=== PATIENT | female | born 1960 | race African-American/Black ===

== ENCOUNTER 2019-02-04 14:34 | Inpatient (IN) | payer MEDICAID, OTHER ==
[~2019-02-04] VITALS: Ht 157.5 cm; Wt 109.0 kg
[2019-02-04 16:09] LABS: INR 0.95 (0.9-1.15); Partial Thromboplastin Time 28.1 sec (23.78-33.04); Prothrombin Time 10.2 sec (9.27-12.13)
[2019-02-04 16:11] LABS: Basophils # (auto) 0.1 uL; Basophils % (auto) 0.9 % (0.0-2.0); Eosinophils # (auto) 0.1 uL; Eosinophils % (auto) 1.9 % (0.0-7.0); Hematocrit 43.8 % (36.0-46.0); Lymphocytes % (auto) 30.5 % (10.0-50.0); Mean Corpuscular Hemoglobin 28.5 pg (28.0-32.0); Monocytes # (auto) 0.6 uL; Monocytes % (auto) 9.4 % (0.0-12.0); Neutrophils # (auto) 3.7 uL; Neutrophils % (auto) 57.3 % (37.0-80.0); Nucleated Red Blood Cells % 0.2 %; Platelet Count (auto) 346 10^3/uL (140-450); Red Blood Cells 4.92 10^6/uL (4.0-5.20); Red Cell Distribution Width 13.6 % (11.8-14.3); White Blood Cell 6.4 10^3/uL (4.4-10.8)
[2019-02-04 16:16] LABS: Albumin 3.3 g/dL (3.4-5.0); Calcium 9.8 mg/dL (8.5-10.1); Potassium 3.4 mmol/L (3.5-5.1)
[2019-02-04 16:19] LABS: Bilirubin, Total 0.2 mg/dL (0.2-1.0); Total Protein 7.3 g/dL (6.4-8.2)
[2019-02-04] MEDS ORDERED: POTASSIUM EFFERVESENT TAB 25 MEQ PO ONE (16:45)
[2019-02-04] MEDS ORDERED: FUROSEMIDE 40 MG/4 ML VIAL IV ONE (16:45)
[2019-02-05] MEDS ORDERED: ALBUTEROL SULF 2.5 MG/0.5ML(0.5%) NEB SOLN NEB ONE (02:00)
[2019-02-05] MEDS ORDERED: IPRATROPIUM BROM 0.5 MG/2.5ML INH SOL NEB ONE (02:00)
[2019-02-05] MEDS ORDERED: DEXTROSE (50%) 50ML SYRG IV PRN (03:30)
[2019-02-05] MEDS ORDERED: LORazepam 0.5 MG TAB PO PRN (03:30)
[2019-02-05] MEDS ORDERED: HYDROcodone-ACET 5/325MG TAB PO PRN (03:30)
[2019-02-05 03:54] LABS: Urine Bacteria FEW /hpf (None Seen); Urine Blood Negative /uL (Negative); Urine Hyaline Cast FEW /lpf (0 - 2); Urine Specific Gravity 1.013 (1.001-1.035); Urine WBC 4 /hpf (0 - 5)
[2019-02-05 04:01] VITALS: BP 131/101
[2019-02-05 04:13] LABS: Basophils # (auto) 0.1 uL; Basophils % (auto) 1.1 % (0.0-2.0); Eosinophils # (auto) 0.2 uL; Hematocrit 39.7 % (36.0-46.0); Hemoglobin 12.8 g/dL (12.2-16.2); Lymphocytes # (auto) 1.3 uL; Lymphocytes % (auto) 23.7 % (10.0-50.0); Mean Corpuscular Hemoglobin 28.3 pg (28.0-32.0); Mean Corpuscular Hgb Conc. 32.3 g/dL (32.0-36.0); Mean Corpuscular Volume 87.5 fL (80.0-100.0); Monocytes # (auto) 0.6 uL; Monocytes % (auto) 11.1 % (0.0-12.0); Neutrophils # (auto) 3.4 uL; Neutrophils % (auto) 61.1 % (37.0-80.0); Nucleated Red Blood Cells % 0.1 %; Platelet Count (auto) 323 10^3/uL (140-450); Red Blood Cells 4.53 10^6/uL (4.0-5.20); Red Cell Distribution Width 13.5 % (11.8-14.3); White Blood Cell 5.6 10^3/uL (4.4-10.8)
[2019-02-05 04:24] LABS: BUN/Creatinine Ratio 20.4; Calcium 9.4 mg/dL (8.5-10.1)
[2019-02-05] MEDS ORDERED: IPRATROPIUM BROM 0.5 MG/2.5ML INH SOL ONE (06:39)
[2019-02-05] MEDS ORDERED: ALBUTEROL SULF 2.5 MG/0.5ML(0.5%) NEB SOLN ONE (06:39)
[2019-02-05] MEDS: ALBUTEROL SULF 2.5 MG/0.5ML(0.5%) NEB SOLN NEB SCH ×5 (06:55→22:30)
[2019-02-05] MEDS: IPRATROPIUM BROM 0.5 MG/2.5ML INH SOL NEB SCH ×5 (06:55→22:30)
[2019-02-05] MEDS: ACCU-CHEK COMFORT CURVE STRIP VI SCH ×4 (07:50→21:32)
[2019-02-05] MEDS: InsuLIN REG 1unit/0.01ml Soln (100units/ml) SC SCH ×4 (07:50→21:32)
[2019-02-05] MEDS: LISINOPRIL 5 MG TAB PO SCH (09:55)
[2019-02-05] MEDS ORDERED: cefTRIAXone 1GM/50ML D5W 50 ML IV ONE (13:30)
--- NOTE | 2019-02-05 16:46 | NUR ---
ER NURSE DID NOT GIVE REPORT, PER PATIENT SHE S/P PARACENTESIS REMOVED 1 L.
--- NOTE | 2019-02-05 16:49 | NUR ---
Telemetry admit from ER CHRISLEXII admitted to Telemetry unit after SBAR received. Patient oriented to MICHAEL REYEZ, primary RN, unit, room, bed, and unit policies regarding patient care and visiting hours. Patient now on continuous telemetry monitoring, tele box # 25 and telemetry reading on arrival to unit is . Patient placed on bedside oxygen, weighed by bed scale and encouraged to call if they need something. All questions and concerns addressed, patient verbalized understanding.
[2019-02-05 16:51] VITALS: BP 108/67
--- NOTE | 2019-02-05 18:48 | NUR ---
MRSA SENT TO THE LAB.
--- NOTE | 2019-02-05 19:40 | NUR ---
Opening Shift Note Assumed care of patient, awake and alert. No S/S of distress/SOB but c/o of headache pain, will medicate per md order. Patient can ambulate to the restroom. Bed locked in lowest position, side rails upx2, call light within reach. Instructed on POC and to call for assist PRN, will continue to monitor for changes Q1hr and PRN.
[2019-02-05] MEDS: ACETAMINOPHEN 500 MG TAB PO PRN (20:01)
[2019-02-05 22:00] VITALS: BP 122/81
--- NOTE | 2019-02-05 22:40 | NUR ---
Respiratory note: PT DOES NOT WANT TO BE WOKEN UP FOR NEXT SCHEDULED MED NEB AT 0200, PT NOTIFIED TO CALL RT IF SOB OCCURS.
[2019-02-06] MEDS: ALBUTEROL SULF 2.5 MG/0.5ML(0.5%) NEB SOLN NEB SCH ×4 (00:13→14:26)
[2019-02-06] MEDS: IPRATROPIUM BROM 0.5 MG/2.5ML INH SOL NEB SCH ×4 (00:13→14:26)
[2019-02-06 05:00] VITALS: BP 114/70
[2019-02-06] MEDS: ACETAMINOPHEN 500 MG TAB PO PRN (06:13)
[2019-02-06 06:23] LABS: Basophils # (auto) 0.1 uL; Basophils % (auto) 1.4 % (0.0-2.0); Eosinophils # (auto) 0.1 uL; Eosinophils % (auto) 2.3 % (0.0-7.0); Hematocrit 41.8 % (36.0-46.0); Hemoglobin 13.1 g/dL (12.2-16.2); Lymphocytes # (auto) 1.1 uL; Lymphocytes % (auto) 22.4 % (10.0-50.0); Mean Corpuscular Hemoglobin 27.7 pg (28.0-32.0); Mean Corpuscular Hgb Conc. 31.5 g/dL (32.0-36.0); Mean Corpuscular Volume 88.1 fL (80.0-100.0); Monocytes # (auto) 0.4 uL; Monocytes % (auto) 7.5 % (0.0-12.0); Neutrophils # (auto) 3.4 uL; Neutrophils % (auto) 66.4 % (37.0-80.0); Nucleated Red Blood Cells % 0.1 %; Platelet Count (auto) 336 10^3/uL (140-450); Red Blood Cells 4.75 10^6/uL (4.0-5.20); Red Cell Distribution Width 13.5 % (11.8-14.3); White Blood Cell 5.1 10^3/uL (4.4-10.8)
[2019-02-06] MEDS: ACCU-CHEK COMFORT CURVE STRIP VI SCH (06:42)
[2019-02-06] MEDS: InsuLIN REG 1unit/0.01ml Soln (100units/ml) SC SCH (06:42)
[2019-02-06 06:54] LABS: Calcium 9.5 mg/dL (8.5-10.1); Potassium 3.8 mmol/L (3.5-5.1)
[2019-02-06 06:58] LABS: BUN/Creatinine Ratio 18.6
--- NOTE | 2019-02-06 08:00 | NUR ---
Opening Shift Note Assumed care of patient, awake and alert. No S/S of distress/SOB or pain. Instructed on POC and to call for assist PRN, will continue to monitor for changes Q1hr and PRN.
[2019-02-06 09:00] VITALS: BP 120/95
[2019-02-06] MEDS ORDERED: cefTRIAXone 1GM/50ML D5W 50 ML IV SCH (09:00)
[2019-02-06] MEDS: LISINOPRIL 5 MG TAB PO SCH (10:00)
[2019-02-06 13:00] VITALS: BP 108/74
--- NOTE | 2019-02-06 15:00 | NUR ---
Discharge instructions given as ordered. Encourage to follow up with PMD Dr. Clayton Tay on 02/13/19 at 1015 #[phone] located at [address] [place] [address]. Proceed with scheduled appointment in [facility] on Monday. All questions and concerns addressed. Patient verbalized understanding. Medication reconciliation form completed and copy given to patient. IV removed with catheter intact, pressure dressing applied. Telemetry unit returned to [facility]. Patient taken to vehicle via wheelchair with all personal belongings, accompanied by staff and family member. No distress noted at time of departure.
== END 2019-02-06 15:00 | disposition home or self-care (01) | DRG 133 ==
LOC: ER 14:34 → TELE 02-05 03:47 → TELE-CENTR 02-05 16:00
PROVIDERS: ADMIT Nurse Practitioner Family; ATTEND Internal Medicine
PROC: 0W993ZZ Drainage of Right Pleural Cavity, Percutaneous Approach (ICD-10-PCS; principal; 2019-02-05)
DX: J96.20 Acute and chronic respiratory failure, unspecified whether with hypoxia or hypercapnia (principal); I50.43 Acute on chronic combined systolic (congestive) and diastolic (congestive) heart failure; E11.21 Type 2 diabetes mellitus with diabetic nephropathy; R65.10 Systemic inflammatory response syndrome (SIRS) of non-infectious origin without acute organ dysfunction; I11.0 Hypertensive heart disease with heart failure; J91.8 Pleural effusion in other conditions classified elsewhere; E44.1 Mild protein-calorie malnutrition; R19.00 Intra-abdominal and pelvic swelling, mass and lump, unspecified site; J20.9 Acute bronchitis, unspecified; E87.6 Hypokalemia; N39.0 Urinary tract infection, site not specified; E66.9 Obesity, unspecified; D25.9 Leiomyoma of uterus, unspecified; E87.1 Hypo-osmolality and hyponatremia; J98.11 Atelectasis; Z87.891 Personal history of nicotine dependence; Z68.41 Body mass index [BMI] 40.0-44.9, adult
CPT/HCPCS: 10022; 36415; 71045; 71046; 71250; 74176; 76942; 80048; 80053; 81001; 82962; 83036; 83880; 83986; 85025; 85610; 85730; 87070; 87081; 87205; 89051; 93005; 94640; 94761; 96374; G0378; J0696; J1815

== ENCOUNTER 2019-02-12 19:31 | Inpatient (IN) | payer MEDICAID | END 2019-02-23 19:30 | disposition home or self-care (01) | LOC: OVERFLOW 23:33 → TELE-EAST 02-22 01:06 → DOU IN ICU 02-19 20:07 → ER 19:31 → WEST WING 02-13 23:02 | PROC: 0W993ZX Drainage of Right Pleural Cavity, Percutaneous Approach, Diagnostic (ICD-10-PCS; principal; 2019-02-19 12:45) | PROC: 0W9D3ZX Drainage of Pericardial Cavity, Percutaneous Approach, Diagnostic (ICD-10-PCS; 2019-02-19 12:45) | DX: I31.3 Pericardial effusion (noninflammatory) (principal); N17.0 Acute kidney failure with tubular necrosis; J96.01 Acute respiratory failure with hypoxia; I50.43 Acute on chronic combined systolic (congestive) and diastolic (congestive) heart failure; J90 Pleural effusion, not elsewhere classified; R65.10 Systemic inflammatory response syndrome (SIRS) of non-infectious origin without acute organ dysfunction; E11.21 Type 2 diabetes mellitus with diabetic nephropathy; E44.1 Mild protein-calorie malnutrition; I13.0 Hypertensive heart and chronic kidney disease with heart failure and stage 1 through stage 4 chronic kidney disease, or unspecified chronic kidney disease; E66.01 Morbid (severe) obesity due to excess calories; J44.9 Chronic obstructive pulmonary disease, unspecified; N18.9 Chronic kidney disease, unspecified ==

== ENCOUNTER 2019-10-14 15:44 | Inpatient (IN) | payer MEDICAID ==
[~2019-10-14] VITALS: Ht 157.5 cm; Wt 113.8 kg
[~2019-10-14 15:44] MED LIST: BRIM0.2S17 EACHEYE; FURO40TA4 PO; HCTZ25T PO; LISI-275 PO; METF-370 PO
[2019-10-14] MEDS ORDERED: ALBUTEROL SULF 2.5 MG/0.5ML(0.5%) NEB SOLN NEB ONE (16:30)
[2019-10-14] MEDS ORDERED: FUROSEMIDE 40 MG/4 ML VIAL IV ONE ×2 (16:30→19:30)
[2019-10-14] MEDS ORDERED: MORPHINE SULF INJ 2 MG/ML SYRINGE 1ML IV ONE (16:30)
[2019-10-14] MEDS ORDERED: ONDANSETRON HCL 4 MG/2 ML VIAL IV ONE (16:30)
[2019-10-14] MEDS ORDERED: IPRATROPIUM BROM 0.5 MG/2.5ML INH SOL NEB ONE (16:30)
[2019-10-14] MEDS ORDERED: IPRATROPIUM BROM 0.5 MG/2.5ML INH SOL ONE (16:32)
[2019-10-14] MEDS ORDERED: ALBUTEROL SULF 2.5 MG/0.5ML(0.5%) NEB SOLN ONE (16:32)
[2019-10-14 16:57] LABS: Albumin 3.8 g/dL (3.4-5.0); Potassium 4.3 mmol/L (3.5-5.1)
[2019-10-14 17:00] LABS: BUN/Creatinine Ratio 20.6; Bilirubin, Total 0.4 mg/dL (0.2-1.0); Total Protein 7.8 g/dL (6.4-8.2)
[2019-10-14 17:24] LABS: INR 1.06 (0.9-1.15); Partial Thromboplastin Time 28.3 sec (23.64-32.05)
[2019-10-14 17:31] LABS: Basophils # (auto) 0.1 uL; Basophils % (auto) 1.7 % (0.0-2.0); Eosinophils # (auto) 0.3 uL; Eosinophils % (auto) 3.3 % (0.0-7.0); Hematocrit 44.2 % (36.0-46.0); Lymphocytes # (auto) 2.5 uL; Lymphocytes % (auto) 31.6 % (10.0-50.0); Mean Corpuscular Hemoglobin 27.9 pg (28.0-32.0); Mean Corpuscular Hgb Conc. 31.7 g/dL (32.0-36.0); Mean Corpuscular Volume 87.8 fL (80.0-100.0); Monocytes # (auto) 0.6 uL; Monocytes % (auto) 7.3 % (0.0-12.0); Neutrophils # (auto) 4.5 uL; Neutrophils % (auto) 56.1 % (37.0-80.0); Nucleated Red Blood Cells % 0.1 %; Platelet Count (auto) 298 10^3/uL (140-450); Red Blood Cells 5.04 10^6/uL (4.0-5.20); Red Cell Distribution Width 14.1 % (11.8-14.3)
[2019-10-14] MEDS ORDERED: SODIUM CHLORIDE 0.9% 250 ML IV ONE ×2 (19:15)
[2019-10-14] MEDS ORDERED: MORPHINE SULF INJ 2 MG/ML SYRINGE 1ML IV PRN ×2 (19:30)
[2019-10-14] MEDS ORDERED: HYDROcodone-ACET 5/325MG TAB PO PRN (19:30)
[2019-10-14] MEDS ORDERED: IPRATROPIUM BROM 0.5 MG/2.5ML INH SOL NEB PRN (19:30)
[2019-10-14] MEDS ORDERED: NITROGLYCERIN 0.4 MG SL TAB SL PRN (19:30)
[2019-10-14] MEDS ORDERED: DEXTROSE (50%) 50ML SYRG IV PRN (19:30)
[2019-10-14] MEDS ORDERED: ACETAMINOPHEN 500 MG TAB PO PRN (19:30)
[2019-10-14] MEDS ORDERED: ALBUTEROL SULF 2.5 MG/0.5ML(0.5%) NEB SOLN NEB PRN (19:30)
[2019-10-14] MEDS ORDERED: ONDANSETRON HCL 4 MG/2 ML VIAL IV PRN (19:30)
--- NOTE | 2019-10-14 21:25 | NUR ---
RT NOTE: PT ASSESSED FOR PRN BREATHING TX. TX NOT INDICATED @ THIS TIME. SPO2 97% ON 2L NC, HR 108, RR 24, CLEAR BS AUSCULTATED. PT AWARE OF PRN TX AND WILL HAVE NURSE PAGE FOR RT IF NEEDED. NO SOB OR DISTRESS @ THIS TIME.
[2019-10-14 21:29] VITALS: BP 111/75
[2019-10-15] MEDS: BRIMONIDINE 0.2% OPTH Soln 5ml EACHEYE SCH ×4 (00:17→21:21)
[2019-10-15] MEDS: ACCU-CHEK COMFORT CURVE STRIP VI SCH ×5 (00:27→21:33)
[2019-10-15] MEDS: InsuLIN REG 1unit/0.01ml Soln (100units/ml) SC SCH ×5 (00:27→21:33)
--- NOTE | 2019-10-15 00:30 | NUR ---
ADMITTED PATIENT FROM THE ER, AAOX4. NO DISTRESS NOTED. AFEBRILE. COMPLAINED OF HEADACHE. WILL MEDICATE PATIENT. SOB NOTED ON EXERTION. DIMINISHED BREATH SOUNDS NOTED ON BOTH LUNG BASES. NO NAUSEA/VOMITING NOTED. INTRODUCED MYSELF TO THE PATIENT. ORIENTATION GIVEN. ROUTINE ADMISSION DONE. POCS DISCUSSED WITH PATIENT AND SHOWED UNDERSTANDNG. BED KEPT ON LOWEST POSITION. SIDE RAILS UP. CALL LIGHT/TABLE IN REACH. KEPT COMFORTABLE.
[2019-10-15 01:00] VITALS: BP_SYST 115; BP_SYST 118; BP_DIAS 68
[2019-10-15 05:00] VITALS: BP 124/85
--- NOTE | 2019-10-15 06:20 | NUR ---
Respiratory note: ROUTINE PRN MN TX CHECK. HR 71, RR 18, POX 95% ON RA, BREATH SOUNDS ARE CLEAR. NO SOB OR DISTRESS NOTED.PT WAS NOTIFY TO HAVE RT PAGE FOR TX.
--- NOTE | 2019-10-15 06:30 | NUR ---
ON BED, ASLEEP. STABLE. NO DISTRESS NOTED. FOR MORE CARE AND MANAGEMENT.
--- NOTE | 2019-10-15 08:15 | NUR ---
OPENING SHIFT NOTE: PATIENT AWAKE SITTING UP IN CHAIR AT BREAKFAST TRAY, BREATHING LABORED. ASSESSED PATIENT AND ASKED IF SHE WEARS OXYGEN, WHICH SHE NODDED AND POINTED TO THE NASAL CANNULA ON THE BED. PATIENT 02 SAT TAKEN, AND WAS 89% AFTER A MINUTE CAME UP TO 92% ON 2L. THIS RN ASKED PATIENT WHY SHE WASN'T WEARING OXYGEN, AND PATIENT STATES, "I DON'T WEAR IT ALL THE TIME, BUT WHEN THIS FIBROID STARTS UP I AM IN PAIN AND CAN'T BREATHE." PATIENT POINTED TO RIGHT ABDOMEN AND INFORMED THIS RN SHE HAS A SURGICAL APPOINTMENT AT [facility] 11/06/19 FOR OVARIAN FIBROID REMOVAL. EDUCATED THE IMPORTANCE OF WEARING OXYGEN AT THIS TIME. PATIENT VERBALIZED UNDERSTANDING. FALL PRECAUTIONS IN PLACE, CALL LIGHT WITHIN REACH, WILL CONTINUE TO MONITOR.
[2019-10-15 08:49] VITALS: BP 150/86
--- NOTE | 2019-10-15 10:02 | NUR ---
THORACENTESIS DONE BY DR COLLINS IN ULTRASOUND. VSS 133/[id number]%.PT TOLERATED PROCEDURE WELL. POST CXR DONE. 1600 ML OF FLUID REMOVED.
--- NOTE | 2019-10-15 10:05 | NUR ---
PATIENT BACK FROM RADIOLOGY. NO SIGNS OF DISTRESS NOTED, PATIENT HAS A PETROLEUM GAUZE TO RIGHT MID BACK, MINIMAL SANGUINOUS DRAINAGE NOTED, MODERATE SWELLING. NO C/O PAIN. WILL CONTINUE TO MONITOR.
[2019-10-15] MEDS: PANTOPRAZOLE 40 MG TAB PO SCH (10:21)
[2019-10-15 12:37] VITALS: BP 129/90
--- NOTE | 2019-10-15 17:43 | NUR ---
PER DR. CRABTREE, PATIENT IS OKAY TO GO HOME ONCE CARDIAC HAS CLEARED PATIENT AND HAS IDENTIFIED IF PATIENT REQUIRES INTERVENTION OF PERICARDIAL FLUID.
--- NOTE | 2019-10-15 18:34 | NUR ---
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 VERBALIZED UNDERSTANDING. WILL ENDORSE CARE TO NOC RN.
--- NOTE | 2019-10-15 18:48 | NUR ---
CONSENTS SIGNED AND PLACED IN THE HARD CHART.
--- NOTE | 2019-10-15 19:23 | NUR ---
CARE ENDORSED TO STANLEY SIM.
--- NOTE | 2019-10-15 19:34 | NUR ---
Opening Shift Note Received report and assumed care of patient. Patient is awake and alert. No signs or symptoms of distress noted, patient currentl denies pain. Patient is on 2 L nasal cannula. Instructed patient on plan of care and to call for assistance as needed. Will continue to monitor.
[2019-10-15 20:00] VITALS: BP 94/56
[2019-10-15] MEDS: METOPROLOL TARTRATE 25 MG TAB PO SCH (21:21)
[2019-10-15 22:00] VITALS: BP 94/56
[2019-10-16 04:43] LABS: Urine WBC None Seen /hpf (0 - 5)
[2019-10-16 04:54] VITALS: BP 127/88
[2019-10-16 05:24] LABS: Urine Bacteria NONE SEEN /hpf (None Seen); Urine Blood Negative /uL (Negative)
[2019-10-16] MEDS: ACCU-CHEK COMFORT CURVE STRIP VI SCH ×2 (05:36→11:11)
[2019-10-16] MEDS: BRIMONIDINE 0.2% OPTH Soln 5ml EACHEYE SCH (05:37)
[2019-10-16] MEDS: InsuLIN REG 1unit/0.01ml Soln (100units/ml) SC SCH ×2 (05:37→11:11)
[2019-10-16 06:45] LABS: Basophils # (auto) 0 uL; Basophils % (auto) 0.9 % (0.0-2.0); Eosinophils # (auto) 0.2 uL; Hematocrit 40.2 % (36.0-46.0); Hemoglobin 13.2 g/dL (12.2-16.2); Lymphocytes # (auto) 1.3 uL; Lymphocytes % (auto) 32.1 % (10.0-50.0); Mean Corpuscular Hemoglobin 28.6 pg (28.0-32.0); Mean Corpuscular Hgb Conc. 32.8 g/dL (32.0-36.0); Mean Corpuscular Volume 87.2 fL (80.0-100.0); Monocytes # (auto) 0.4 uL; Monocytes % (auto) 9.5 % (0.0-12.0); Neutrophils # (auto) 2.2 uL; Neutrophils % (auto) 53.5 % (37.0-80.0); Nucleated Red Blood Cells % 0.1 %; Platelet Count (auto) 299 10^3/uL (140-450); Red Blood Cells 4.62 10^6/uL (4.0-5.20); Red Cell Distribution Width 13.8 % (11.8-14.3); White Blood Cell 4.1 10^3/uL (4.4-10.8)
[2019-10-16 06:56] LABS: INR 1.07 (0.9-1.15); Partial Thromboplastin Time 30.8 sec (23.64-32.05)
[2019-10-16 06:58] LABS: Calcium 9.4 mg/dL (8.5-10.1); Potassium 4.2 mmol/L (3.5-5.1)
[2019-10-16 07:00] LABS: BUN/Creatinine Ratio 22.5
--- NOTE | 2019-10-16 07:45 | NUR ---
OPENING SHIFT NOTE: Received report from NOC RN, Elizabeth. Assumed care of patient. Patient resting in bed, denies pain. Bed in lowest position, rails x2 up and call light within reach. Updated on plan of care. Will continue to monitor.
--- NOTE | 2019-10-16 08:15 | NUR ---
OTOLARYNGOLOGY NURSE: Patient taken to cathlab via bed for percardicentesis.
[2019-10-16 09:00] VITALS: BP 134/77
[2019-10-16] MEDS: PANTOPRAZOLE 40 MG TAB PO SCH (11:09)
[2019-10-16] MEDS: METOPROLOL TARTRATE 25 MG TAB PO SCH (11:09)
[2019-10-16 12:34] VITALS: BP 134/77
[2019-10-16 13:00] VITALS: BP 125/71
--- NOTE | 2019-10-16 14:13 | NUR ---
DISCHARGE: Discharge instructions given as ordered. Encourage to follow up with PMD as instructed. All questions and concerns addressed. Patient verbalized understanding. Medication reconciliation form completed and copy given to patient.IV removed with catheter intact, pressure dressing applied. Telemetry unit returned to ICU. Patient taken to vehicle via wheelchair with all personal belongings, accompanied by staff and family member. No distress noted at time of departure.
== END 2019-10-16 14:00 | disposition home or self-care (01) | DRG 133 ==
LOC: ER 15:46 → TELE 15:48 → TELE-WESTW 23:28
PROVIDERS: ADMIT Nurse Practitioner Acute Care; ATTEND Internal Medicine
PROC: 0W993ZZ Drainage of Right Pleural Cavity, Percutaneous Approach (ICD-10-PCS; principal; 2019-10-15)
DX: J96.00 Acute respiratory failure, unspecified whether with hypoxia or hypercapnia (principal); E11.22 Type 2 diabetes mellitus with diabetic chronic kidney disease; I31.3 Pericardial effusion (noninflammatory); J90 Pleural effusion, not elsewhere classified; E66.01 Morbid (severe) obesity due to excess calories; I50.9 Heart failure, unspecified; I13.0 Hypertensive heart and chronic kidney disease with heart failure and stage 1 through stage 4 chronic kidney disease, or unspecified chronic kidney disease; I10 Essential (primary) hypertension; N18.3 Chronic kidney disease, stage 3 (moderate); J98.11 Atelectasis; H40.9 Unspecified glaucoma; R19.00 Intra-abdominal and pelvic swelling, mass and lump, unspecified site; J44.9 Chronic obstructive pulmonary disease, unspecified; Z79.84 Long term (current) use of oral hypoglycemic drugs; Z80.1 Family history of malignant neoplasm of trachea, bronchus and lung; Z90.710 Acquired absence of both cervix and uterus; Z79.899 Other long term (current) drug therapy; Z83.3 Family history of diabetes mellitus; Z68.42 Body mass index [BMI] 45.0-49.9, adult
CPT/HCPCS: 10022; 32555; 36415; 71045; 71250; 74176; 76604; 76942; 80048; 80053; 81001; 82962; 83036; 83735; 83880; 84443; 85025; 85610; 85730; 93005; 93306; 94640; G0378

== ENCOUNTER 2019-11-15 12:15 | Emergency (ER) | payer MEDICAID ==
[~2019-11-15] VITALS: Ht 157.5 cm; Wt 95.3 kg
[2019-11-15] MEDS ORDERED: SODIUM CHLORIDE 0.9% 1,000 ML IV ONE (12:27)
[2019-11-15 13:50] LABS: Albumin 3.6 g/dL (3.4-5.0); Potassium 3.8 mmol/L (3.5-5.1)
[2019-11-15 13:52] LABS: INR 0.99 (0.9-1.15); Partial Thromboplastin Time 27.7 sec (23.64-32.05)
[2019-11-15 13:54] LABS: BUN/Creatinine Ratio 13.5; Bilirubin, Total 0.2 mg/dL (0.2-1.0); Total Protein 8.4 g/dL (6.4-8.2)
[2019-11-15 13:59] LABS: Basophils # (auto) 0.2 uL; Basophils % (auto) 3.2 % (0.0-2.0); Eosinophils # (auto) 0.2 uL; Eosinophils % (auto) 2.4 % (0.0-7.0); Hematocrit 37.1 % (36.0-46.0); Lymphocytes # (auto) 1.6 uL; Lymphocytes % (auto) 21.9 % (10.0-50.0); Mean Corpuscular Hemoglobin 27.8 pg (28.0-32.0); Mean Corpuscular Hgb Conc. 32.3 g/dL (32.0-36.0); Monocytes # (auto) 0.5 uL; Monocytes % (auto) 6.8 % (0.0-12.0); Neutrophils # (auto) 4.8 uL; Neutrophils % (auto) 65.7 % (37.0-80.0); Nucleated Red Blood Cells % 0.1 %; Platelet Count (auto) 534 10^3/uL (140-450); Red Blood Cells 4.31 10^6/uL (4.0-5.20); Red Cell Distribution Width 13.6 % (11.8-14.3); White Blood Cell 7.2 10^3/uL (4.4-10.8)
[2019-11-15 14:12] LABS: Urine Bacteria NONE SEEN /hpf (None Seen); Urine Blood 2+ /uL (Negative); Urine Specific Gravity 1.005 (1.001-1.035); Urine WBC 3 /hpf (0 - 5)
[2019-11-15 15:23] VITALS: BP 107/78
== END 2019-11-15 15:44 | disposition short-term general hospital (02) ==
LOC: EDBD 12:15 → EDUNIT# 12:15 → ER 12:20
DX: T81.30XA Disruption of wound, unspecified, initial encounter (principal); Y83.9 Surgical procedure, unspecified as the cause of abnormal reaction of the patient, or of later complication, without mention of misadventure at the time of the procedure; Y92.89 Other specified places as the place of occurrence of the external cause
CPT/HCPCS: 36415; 74176; 80053; 81001; 85025; 85610; 85730

== ENCOUNTER 2021-06-15 12:09 | Emergency (ER) | payer MEDICAID ==
[~2021-06-15] VITALS: Ht 157.5 cm; Wt 113.4 kg
[~2021-06-15 12:09] MED LIST changes: -HCTZ25T PO; +HYDR25TA5 PO
[2021-06-15 13:33] LABS: Basophils # (auto) 0.1 10 ^3/uL (0-0.2); Basophils % (auto) 1.3 % (0.0-2.0); Eosinophils # (auto) 0.2 10 ^3/uL (0-0.8); Hematocrit 39.1 % (36.0-46.0); Hemoglobin 12.8 g/dL (12.2-16.2); Lymphocytes # (auto) 2.1 10 ^3/uL (0.4-5.4); Mean Corpuscular Hemoglobin 28.2 pg (28.0-32.0); Mean Corpuscular Hgb Conc. 32.7 g/dL (32.0-36.0); Mean Corpuscular Volume 86.4 fL (80.0-100.0); Monocytes # (auto) 0.4 10 ^3/uL (0-1.3); Monocytes % (auto) 6.4 % (0.0-12.0); Neutrophils # (auto) 3.1 10 ^3/uL (1.6-8.6); Neutrophils % (auto) 53.3 % (37.0-80.0); Nucleated Red Blood Cells % 0.1 %; Red Blood Cells 4.52 10^6/uL (4.0-5.20); Red Cell Distribution Width 13.5 % (11.8-14.3); White Blood Cell 5.9 10^3/uL (4.4-10.8)
[2021-06-15 14:06] LABS: Chloride 105 mmol/L (98-107); Potassium 3.6 mmol/L (3.5-5.1); Sodium 142 mmol/L (136-145)
[2021-06-15 14:25] LABS: Alanine Aminotransferase 29 U/L (13-56); Albumin 4.3 g/dL (3.4-5.0); Alkaline Phosphatase 93 U/L (45-117); Anion Gap 6 (5-15); Aspartate Aminotransferase 16 U/L (15-37); BUN/Creatinine Ratio 24.2; Bilirubin, Total 0.4 mg/dL (0.2-1.0); Blood Urea Nitrogen 24 mg/dL (7-18); Calcium 9.9 mg/dL (8.5-10.1); Carbon Dioxide 31 mmol/L (21-32); GFR African American 74 mL/min; GFR Non-African American 61 mL/min; Glucose 133 mg/dL (74-106); Magnesium 2.2 mg/dL (1.6-2.6); Total Protein 8.2 g/dL (6.4-8.2)
[2021-06-15 15:46] VITALS: BP 103/50
== END 2021-06-15 15:51 | disposition home or self-care (01) ==
LOC: ER 12:09
DX: R53.1 Weakness (principal); I11.0 Hypertensive heart disease with heart failure; I50.9 Heart failure, unspecified; J44.9 Chronic obstructive pulmonary disease, unspecified; E11.9 Type 2 diabetes mellitus without complications; E78.5 Hyperlipidemia, unspecified; Z87.891 Personal history of nicotine dependence; Z79.899 Other long term (current) drug therapy
CPT/HCPCS: 36415; 71046; 80053; 83735; 83880; 84484; 85025; 93005

== ENCOUNTER 2025-10-03 08:01 | Inpatient (IN) | payer MEDICAID ==
[2025-10-03] VITALS (26 sets, daily range): BP systolic 102–134; BP diastolic 60–83; PULSE 91–117; RESP 14–24; TEMP 98.4–99; O2SAT 95–100
[~2025-10-03] VITALS: Ht 157.5 cm; Wt 128.0 kg
[2025-10-03] MEDS: ACCU-CHEK COMFORT CURVE STRIP VI SCH (07:00)
--- NOTE | 2025-10-03 08:12 | ED.PDOC ---
HPI Comments 65-year-old female presents here with crushing chest pain. Patient states this occurred 3 days ago while she was walking. She began to have crushing substernal chest pain with radiation into the back in the right shoulder associated with shortness of breath that began at that time. Denies any nausea vomiting. She states it got better with lying down. She states over the last 3 days the pain has been worsening. Denies any recent illness. Denies recent cough cold runny nose fever or chills. Currently reports crushing substernal chest pain and shortness of breath. Patient has a nonsmoker. But has a known diabetes with a history of hypertension and hyperlipidemia. No recent long flights, no recent long drives, denies any leg swelling on just 1 leg. Time Seen by MD: 08:10 Primary Care Provider: ALFRED Reviewed Notes: Nurses Notes, Provider Network Manager Notes, Medications, Allergies Allergies: Coded Allergies: NO KNOWN ALLERGIES (Unverified , 02/04/19) Home Meds Active Scripts Furosemide (Furosemide) 40 Mg Tab, 1 TAB PO DAILYPRN PRN, #30 TAB 0 Refills Prov:GABRIELA LUIS MD 02/23/19 Lisinopril (Lisinopril) 5 Mg Tab, 5 MG PO DAILY for 30 Days, #30 TAB Prov:GABRIELA LUIS MD 02/23/19 Reported Medications Metoprolol Succinate (Metoprolol Succinate Er) 50 Mg Tab, 1 TAB PO DAILY 10/03/25 Allopurinol (Allopurinol) 100 Mg Tab, 1 TAB PO DAILY 10/03/25 Gabapentin (Gabapentin) 800 Mg Tab, 1 TAB PO TID 10/03/25 Metformin Hydrochloride (Metformin Hcl) 500 Mg Tab, 500 MG PO IBID for 30 Days, MG 02/14/19 Hctz (Hydrochlorothiazide) 25 Mg Tab, 25 MG PO DAILY, TAB 02/14/19 Brimonidine Tartrate (Brimonidine Tartrate) 0.2 % Rubi, 1 DROP EACHEYE TID for glaucoma, #10 ML 3 Refills 02/13/19 Information Source: Patient, Emergency Med Personnel Mode of Arrival: EMS Severity: Moderate Timing: Days (3) Duration: Since onset Location: Substernal Radiation: Back, Shoulder (R) Quality: Crushing Onset: At Rest Cardiac Risk Factors: Hyperlipidemia, HTN, Diabetes PE Risk Factors: None History of: None Modifying Factors: Nothing Associated Signs and Symptoms: SOB, Back Pain Past Medical History PAST MEDICAL HISTORY: CHF, COPD, DM, High Lipids, HTN Surgical History: Appendectomy, Hysterectomy 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: 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 all 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 Hx Family History Family History: Family hx of Cancer, Family hx of heart all Social History Smoker: Non-Smoker Alcohol: Occasionally Drugs: Denies Drug Use Lives In: Home Constitutional: denies: chills, diaphoresis, fatigue, fever, malaise, sweats, weakness, others EENTM: denies: blurred vision, double vision, ear bleeding, ear discharge, ear drainage, ear pain, ear ringing, eye pain, eye redness, hearing loss, mouth pain, mouth swelling, nasal discharge, nose bleeding, nose congestion, nose pain, photophobia, tearing, throat pain, throat swelling, voice changes, others Respiratory: reports: shortness of breath, SOB with excertion; denies: cough, hemoptysis, orthopnea, SOB at rest, stridor, wheezing, others Cardiovascular: reports: chest pain, others (right shoulder pain); denies: dizzy spells, diaphoresis, Dyspnea on exertion, edema, irregular heart beat, left arm pain, lightheadedness, palpitations, PND, syncope Gastrointestinal: denies: abdomen distended, abdominal pain, blood streaked bowels, constipated, diarrhea, dysphagia, difficulty swallowing, hematemesis, melena, nausea, poor appetite, poor fluid intake, rectal bleeding, rectal pain, vomiting, others Genitourinary: denies: abnormal vagina bleeding, burning, dyspareunia, dysuria, flank pain, frequency, hematuria, incontinence, pain, , vagina discharge, urgency, others Neurological: denies: dizziness, fainting, headache, left sided numbness, left sided weakness, numbness, paresthesia, pre-existing deficit, right sided numbness, right sided weakness, seizure, speech problems, tingling, tremors, weakness, others Musculoskeletal: denies: back pain, gout, joint pain, joint swelling, muscle pain, muscle stiffness, neck pain, others Integumetry: denies: bruises, change in color, change in hair/nails, dryness, laceration, lesions, lumps, rash, wounds, others Allergic/Immunocompromised: denies: Difficulty Healing, Frequent Infections, Hives, Itching, others Hematologic/Lymphatic: denies: anemia, blood clots, easy bleeding, easy bruising, swollen glands, others Endocrine: denies: excessive hunger, excessive sweating, excessive thirst, excessive urination, flushing, intolerance to cold, intolerance to heat, unexplained weight gain, unexplained weight loss, others Psychiatric: denies: anxiety, bipolar disorder, depression, hopeless, panic disorder, schizophrenia, sleepless, suicidal, others All Other Systems: Reviewed and Negative Physical Exam General Appearance: Moderate Distress, Other (Squeezing her hands to demonstrate crushing pain) HEENT: Normal ENT Inspection, Pharynx Normal, TMs Normal Neck: Full Range of Motion, Non-Tender, Normal, Normal Inspection Respiratory: Chest Non-Tender, Decreased Breath Sounds, Lungs Clear, No Accessory Muscle Use Cardiovascular: No Edema, No JVD, No Murmur, No Gallop, Normal Peripheral Pulses, Regular Rate/Rhythm Breast Exam: Deferred Gastrointestinal: No Organomegaly, Non Tender, No Pulsatile Mass, Normal Bowel Sounds, Soft Genitalia: Deferred Pelvic: Deferred Rectal: Deferred Extremities: No calf tenderness, Normal capillary refill, Normal inspection, Normal range of motion, Non-tender, No pedal edema Musculoskeletal : Apperance: Normal Neurologic: Alert, explosive ordnance manager II-XII nml as Tested, No Motor Deficits, Normal Affect, Normal Mood, No Sensory Deficits Cerebellar Function: Normal Reflexes: Normal Skin: Dry, Normal Color, Warm Lymphatic: No Adenopathy EKG EKG : Comments Rate of 105 sinus tachycardia no significant ST changes Was a procedure done? Was a procedure done?: No CP Differential Dx Differential Diagnosis: Angina, Anxiety / Panic Attack, Hyperthyroidism, DE, PSVT, Pulmonary Embolus, Sinus Tachycardia Differential Diagnosis: N/A Differential Diagnosis: Angina, Aortic dissection, Cholelithiasis, Costochondritis, Esophageal reflux/spasm, Gastritis, Myocardial Infarction, Pericarditis, Pneumonia, Pneumothorax, Pulmonary Embolus X-Ray, Labs, Meds, VS Vital Signs Date Time Temp Pulse Resp B/P (MAP) Pulse Ox O2 Delivery O2 Flow Rate FiO2 10/03/25 09:40 97 Nasal Cannula* 2 28 10/03/25 09:33 145/74 10/03/25 08:56 97.7 109 19 145/74 (97) 92 97.7 10/03/25 08:09 98.7 106 24 117/81 100 98.7 10/03/25 08:06 105 Lab Test 10/03/25 08:58 10/03/25 08:37 Range/Units White Blood Count 8.8 4.4-10.8 10^3/uL Red Blood Count 4.05 4.0-5.20 10^6/uL Hemoglobin 11.7 L 12.2-16.2 g/dL Hematocrit 36.4 36.0-46.0 % Mean Corpuscular Volume 90.0 80.0-100.0 fL Mean Corpuscular Hemoglobin 28.9 28.0-32.0 pg Mean Corpuscular Hemoglobin Concent 32.1 32.0-36.0 g/dL Red Cell Distribution Width 13.8 11.8-14.3 % Platelet Count 296 140-450 10^3/uL Mean Platelet Volume 9.4 6.9-10.8 fL Neutrophils (%) (Auto) 67.6 37.0-80.0 % Lymphocytes (%) (Auto) 18.4 10.0-50.0 % Monocytes (%) (Auto) 13.0 H 0.0-12.0 % Eosinophils (%) (Auto) 0.4 0.0-7.0 % Basophils (%) (Auto) 0.6 0.0-2.0 % Neutrophils # (Auto) 6.0 1.6-8.6 10 ^3/uL Lymphocytes # (Auto) 1.6 0.4-5.4 10 ^3/uL Monocytes # (Auto) 1.1 0-1.3 10 ^3/uL Eosinophils # (Auto) 0 0-0.8 10 ^3/uL Basophils # (Auto) 0.1 0-0.2 10 ^3/uL Nucleated Red Blood Cells 0.0 % Sodium Level 143 136-145 mmol/L Potassium Level 3.6 3.5-5.1 mmol/L Chloride Level 102 98-107 mmol/L Carbon Dioxide Level 30 20-31 mmol/L Anion Gap 11 5-15 Blood Urea Nitrogen 21 9-23 mg/dL Creatinine 1.04 H 0.550-1.02 mg/dL Glomerular Filtration Rate Calc 60 >90 mL/min BUN/Creatinine Ratio 20.2 H 10.0-20.0 Serum Glucose 152 H 74-106 mg/dL Hemoglobin A1c 6.4 H <5.7 % A1C Calcium Level 10.0 8.7-10.4 mg/dL Troponin I High Sensitivity 7 </=34 ng/L B-Type Natriuretic Peptide 75.62 0-100 pg/mL Thyroid Stimulating Hormone (TSH) 1.61 0.55-4.78 uIU/mL Free Thyroxine (T4) Calculated 1.32 0.89-1.76 ng/dL POC Glucose 171 H 70-106 mg/dl Current Medications Medications (Trade) Dose Ordered Sig/Yuli Route Start Time Stop Time Status Last Admin Nitroglycerin (Ntrostat Sublingual) 0.4 mg ONCE ONCE SL 10/03/25 09:00 10/03/25 09:01 DC 10/03/25 09:33 Aspirin 325 mg ONCE ONCE PO 10/03/25 09:15 10/03/25 09:16 DC 10/03/25 09:33 Ceftriaxone Sodium 50 ml @ 100 mls/hr ONCE ONCE IV 10/03/25 09:15 10/03/25 09:44 DC 10/03/25 09:37 Azithromycin 250 ml @ 125 mls/hr ONCE ONCE IV 10/03/25 09:15 10/03/25 11:14 DC 10/03/25 09:37 [place] [id number] Ph: [phone] DIAGNOSTIC IMAGING Diagnostic Imaging Report : [id number] Signed PATIENT: LEXII PEREZ ACCT: [id number] UNIT: [id number] : 1960 LOC: ER ROOM / BED: / AGE / SEX: 65 / F ADM STATUS: REG ER SERVICE 6 ORDERING PHYSICIAN: KARLOS MORENO MD PROCEDURE(s): CXRP - CHEST PORTABLE REASON: Chest pain ORDER NUMBER(s): [id number], ACCESSION NUMBER(s): [id number] CHEST RADIOGRAPH Indication: Chest pain Technique: Single frontal view of the chest was obtained COMPARISON: None FINDINGS: Lines and Tubes: None Lungs: Congestion. Left mid and lower lobe airspace disease. Pleura: No effusion. No pneumothorax. Cardiomediastinal contours: Cardiomegaly Bones: Unremarkable IMPRESSION: Congestion. Left mid and lower lung airspace disease. Cardiomegaly. ATED BY: SATHYA EMERSON MD DICTATED DATE/TIME: 10/03/25850 SIGNED BY: SATHYA EMERSON MD SIGNED DATE/TIME: 10/03/25850 CC: 65-year-old female presents here with substernal chest pain and shortness of breath that she has had for 3 days worse with walking and better with lying flat. On my examination she does seem to have trouble catching her breath, she is squeezing her hands and show me regarding the crushing chest pain she is having. She has diminished breath sounds bilateral lungs. At this time I am concerned about acute angina. EKG demonstrates sinus tachycardia with no significant ST changes. She does have significant risk factors for heart disease including hypertension diabetes and high cholesterol. Other differential also includes PE as well as pericarditis. She does state things are better when she lays flat and worse when she sits up. Considered possible PE however she does not have any risk factors except for the mild sinus tachycardia of 105, no unilateral leg swelling. She is not on any control pills. That this time I have ordered a CBC, BMP, BNP, chest x-ray troponin and well as EKG. I have ordered nitroglycerin for pain control. Patient has been given aspirin in the ER. Chest x-ray with significant left mid and left lower lung base disease. Possible pneumonia. CBC BMP BNP largely unremarkable. I have written for Rocephin and azithromycin IV. At this time hospitalist team has been contacted for admission. While patient was in the ER waiting for admission she continued to have abnormal rhythms. Per nursing staff she would be sinus rhythm and then AFib and this would alternate including her alteration in her blood pressure. Cardiology was consulted. Time of 1ST Reevaluation: 09:02 Reevaluation 1ST: Unchanged Patient Education/Counseling: Diagnosis, Treatment, Prognosis Family Education/Counseling: No Family Present SEPSIS Sepsis Screen Physician Orders Electrocardigram (10/03/25 09:17) Electrocardigram (10/03/25 11:17) Chest Portable (10/03/25 08:17) Blood Culture (10/03/25 09:04) Vital Signs Date Time Temp Pulse Resp B/P (MAP) Pulse Ox O2 Delivery O2 Flow Rate FiO2 10/03/25 09:40 97 Nasal Cannula* 2 28 10/03/25 09:33 145/74 10/03/25 08:56 97.7 109 19 145/74 (97) 92 97.7 10/03/25 08:09 98.7 106 24 117/81 100 98.7 10/03/25 08:06 105 Laboratory Tests Test 10/03/25 08:58 White Blood Count 8.8 10^3/uL (4.4-10.8) Medications Medications Dose Ordered Sig/Yuli Route Start Time Stop Time Status Last Admin Dose Admin Aspirin 325 mg ONCE ONCE PO 10/03/25 09:15 10/03/25 09:16 DC 10/03/25 09:33 Azithromycin 250 ml @ 125 mls/hr ONCE ONCE IV 10/03/25 09:15 10/03/25 11:14 DC 10/03/25 09:37 Ceftriaxone Sodium 50 ml @ 100 mls/hr ONCE ONCE IV 10/03/25 09:15 10/03/25 09:44 DC 10/03/25 09:37 Nitroglycerin 0.4 mg ONCE ONCE SL 10/03/25 09:00 10/03/25 09:01 DC 10/03/25 09:33 Departure 1 Departure Time of Disposition: : Impression: Primary Impression: Chest pain Qualified Codes: R07.9 - Chest pain, unspecified Additional Impressions: Shortness of breath Arrhythmia Qualified Codes: I49.9 - Cardiac arrhythmia, unspecified Disposition: ADMITTED INPATIENT Condition: Serious Critical Care Note Critical Care Time?: No Stability Stability form required: No Heart Score Heart Score: Heart Score Response (Comments) Value History Moderate Suspicious 1 EKG Normal 0 Age 45-64 1 Risk Factors >3 or Hx ASHD 2 Troponin 1-2 x's Normal limit 1 Total 5 I personally scribed for KARLOS MORENO MD ([email or web address]) on 10/03/25 at 08:12. Electronically submitted by Adriana Albert ([facility] I personally scribed for KARLOS MORENO MD ([email or web address]) on 10/03/25 at 09:04. Electronically submitted by Adriana Albert ([facility] I personally scribed for KARLOS MORENO MD ([employer]) on 10/03/25 at 09:05. Electronically submitted by Adriana Albert ([facility]). KARLOS MORENO MD Oct 03, 2025 08:12
--- NOTE | 2025-10-03 08:53 | DVH ---
CHEST RADIOGRAPH Indication: Chest pain Technique: Single frontal view of the chest was obtained COMPARISON: None FINDINGS: Lines and Tubes: None Lungs: Congestion. Left mid and lower lobe airspace disease. Pleura: No effusion. No pneumothorax. Cardiomediastinal contours: Cardiomegaly Bones: Unremarkable IMPRESSION: Congestion. Left mid and lower lung airspace disease. Cardiomegaly.
[2025-10-03] MEDS: NITROGLYCERIN 0.4 MG SL TAB SL ONE (09:33)
[2025-10-03] MEDS: AZITHROMYCIN 500MG/250ML 250 ML IV ONE (09:37)
[2025-10-03 09:46] LABS: Hematocrit 36.4 % (36.0-46.0); Hemoglobin 11.7 g/dL (12.2-16.2); Mean Corpuscular Hemoglobin 28.9 pg (28.0-32.0); Mean Corpuscular Volume 90.0 fL (80.0-100.0); Nucleated Red Blood Cells % 0.0 %
[2025-10-03 09:54] LABS: Chloride 102 mmol/L (98-107); Potassium 3.6 mmol/L (3.5-5.1); Sodium 143 mmol/L (136-145)
[2025-10-03 09:55] LABS: Calcium 10.0 mg/dL (8.7-10.4)
--- NOTE | 2025-10-03 09:56 | DVHHP2 ---
History of Present Illness Reason for Visit: Chest pain History of Present Illness Miya Carrillo is a 65-year-old female with past medical history of CHF, COPD, diabetes, hyperlipidemia, hypertension, cardiac window in 2023 at [facility], fibroid surgery, and who presents to the ED with chest pain that began 2 days ago, reports 7/10 squeezing intermittent pain. Patient reports that lying down makes it slightly better. Upon evaluation patient using accessory muscles to breathe and placed on 2 L nasal cannula. Patient also reports that she has Dr. Myers is a wheel truer. Patient also reports that she drinks occasionally. Patient reports that she is compliant with her medications. She also reports that she lives at home with her caregiver. Patient denies any recent trauma or injury, recent sick contacts, recent tra vels, recent ingestion of spoiled food, fever, chills, lightheadedness, weakness, dizziness, abdominal pain, nausea, vomiting, diarrhea, or urinary symptoms. Cardiovascular: CHF, HTN, hyperipidemia Pulmonary: COPD Endocrine: Diabetes Past Surgical History: , Other (Cardiac window and fibroid surgery) Family History: Cancer, Other (Dad with unknown cancer.) Smoke: No ALCOHOL: occassional Drugs: None Lives: Other Domestic Violence: Neg Review of Systems Respiratory: Shortness of breath Cardiovascular: Chest Pain Allergies: Coded Allergies: NO KNOWN ALLERGIES (Unverified , 02/04/19) Exam Vital Signs Vital Signs Date Time Temp Pulse Resp B/P (MAP) Pulse Ox O2 Delivery O2 Flow Rate FiO2 10/03/25 09:40 97 Nasal Cannula* 2 28 10/03/25 09:33 145/74 10/03/25 08:56 97.7 109 19 97.7 General Appearance: Alert, Oriented X3, Cooperative, mild distress HEENT: Atraumatic, PERRLA, EOMI, Mucous membr. moist/pink Respiratory: Other (Increased work of breathing) Cardiovascular: Normal S1, Normal S2, No murmurs Abdominal: Normal bowel sounds, Soft Extremities: No clubbing, No cyanosis, Normal pulses Neuro: Normal speech, Normal tone, Sensation intact Psych/Mental Status: Mental status NL, Mood NL Labs/Xrays Labs Test 10/03/25 08:58 10/03/25 08:37 Range/Units POC Glucose 171 H 70-106 mg/dl CHEST RADIOGRAPH Indication: Chest pain Technique: Single frontal view of the chest was obtained COMPARISON: None FINDINGS: Lines and Tubes: None Lungs: Congestion. Left mid and lower lobe airspace disease. Pleura: No effusion. No pneumothorax. Cardiomediastinal contours: Cardiomegaly Bones: Unremarkable IMPRESSION: Congestion. Left mid and lower lung airspace disease. Cardiomegaly. SEPSIS Sepsis Screen Date sepsis recognized/suspect: Oct 03, 2025 Time Sepsis recognized/suspect: 08 Recent Procedure: No On Antibiotic Therapy: No Respiratory Rate >20: Yes Heart Rate >90: Yes Temp<36 C (96.8 F) or >38.3 C: No SBP <90 or MAP <65 mmHG: No New Acute Mental Status Change: No Is the patient on CPAP, BIPAP,: No Physician Orders Complete Blood Count (10/03/25 08:17) Basic Metabolic Panel (10/03/25 08:17) Troponin-I Hs (10/03/25 08:17) Electrocardigram (10/03/25 08:17) Troponin-I Hs (10/03/25 09:17) Troponin-I Hs (10/03/25 11:17) Electrocardigram (10/03/25 09:17) Electrocardigram (10/03/25 11:17) Chest Portable (10/03/25 08:17) B-Type Natriuretic Peptide (10/03/25 08:51) Ceftriaxone 1gm/50ml (Rocephin) (10/03/25 09:15) Azithromycin 500mg/ 250ml (Zithromax 50 (10/03/25 09:15) Blood Culture (10/03/25 09:04) Vital Signs Date Time Temp Pulse Resp B/P (MAP) Pulse Ox O2 Delivery O2 Flow Rate FiO2 10/03/25 09:40 97 Nasal Cannula* 2 28 10/03/25 09:33 145/74 10/03/25 08:56 97.7 109 19 145/74 (97) 92 97.7 10/03/25 08:09 98.7 106 24 117/81 100 98.7 10/03/25 08:06 105 Laboratory Tests Test 10/03/25 08:58 White Blood Count Pending Medications Medications Dose Ordered Sig/Yuli Route Start Time Stop Time Status Last Admin Dose Admin Aspirin 325 mg ONCE ONCE PO 10/03/25 09:15 10/03/25 09:16 DC 10/03/25 09:33 325 MG Azithromycin 250 ml @ 125 mls/hr ONCE ONCE IV 10/03/25 09:15 10/03/25 11:14 10/03/25 09:37 125 MLS/HR Ceftriaxone Sodium 50 ml @ 100 mls/hr ONCE ONCE IV 10/03/25 09:15 10/03/25 09:44 10/03/25 09:37 100 MLS/HR Nitroglycerin 0.4 mg ONCE ONCE SL 10/03/25 09:00 10/03/25 09:01 DC 10/03/25 09:33 0.4 MG Assessment/Plan Assessment/Plan Assessment Chest pain PNA Acute hypoxic respiratory failure on supplemental oxygen Acute on chronic CHF versus COPD exacerbation Alcohol use Cardiomegaly Morbid obesity History of diabetes History of hyperlipidemia History of hypertension History of cardiac window History of fibroid surgery History of Plan Admit to tele Antiemetics Pain management Aspirin + statin Supplemental oxygen IV antibiotics-ceftriaxone Strict I&Os Daily weight BNP Diurese Duo nebs Echo ordered Last echo on 10/15/19 EF 65% UA UDS TSH Free T4 Lipid panel Hemoglobin A1c ISS and Accu-Cheks Diet Home medications reconciled DVT prophylaxis-SCDs PUD prophylaxis-not indicated history of GERD or GI bleed Discussed plan of care with patient and nurse Cardiology consult-Dr. Myers Counseled patient on lifestyle modifications, diet, and exercise Counseled patient on cessation of alcohol use [id number] Preventive counseling healthy eating habits, physical activity, and regular checkups Plan discussed with: Patient Date of Service: Oct 03, 2025 Billing Provider: IAM DELGADO Common Visit Codes: 66926-[id number] INP/OBS CARE (HIGH) Secondary Visit Codes: [id number] COUNSELING IND IAM DELGADO Oct 03, 2025 09:56
[2025-10-03 10:00] LABS: BUN/Creatinine Ratio 20.2 (10.0-20.0); Blood Urea Nitrogen 21 mg/dL (9-23)
[2025-10-03] MEDS ORDERED: ONDANSETRON HCL 4 MG/2 ML VIAL IV PRN (10:00)
[2025-10-03] MEDS ORDERED: NITROGLYCERIN 0.4 MG SL TAB SL PRN ×2 (10:00)
[2025-10-03] MEDS ORDERED: DEXTROSE (50%) 50ML SYRG IV PRN (10:00)
[2025-10-03] MEDS ORDERED: MORPHINE SULFATE 4 MG/ML SYR/VIAL IV PRN (10:00)
[2025-10-03 10:03] LABS: Glucose 152 mg/dL (74-106)
[2025-10-03 10:14] LABS: Anion Gap 11 (5-15); Carbon Dioxide 30 mmol/L (20-31)
[2025-10-03] MEDS ORDERED: METO-289 PO (10:16)
[2025-10-03] MEDS ORDERED: ALLO100T PO (10:16)
[2025-10-03] MEDS ORDERED: GABA800T97 PO (10:16)
[2025-10-03] MEDS: IPRATROPIUM BROM 0.5 MG/2.5ML INH SOL NEB SCH (10:28)
[2025-10-03] MEDS: ALBUTEROL SULF 2.5 MG/0.5ML(0.5%) NEB SOLN NEB SCH (10:28)
[2025-10-03] MEDS: FUROSEMIDE 40 MG/4 ML VIAL IV SCH (10:44)
[2025-10-03 12:44] LABS: Cannabinoid Screen, Urine Neg (NEGATIVE)
[2025-10-03] MEDS: IOHEXOL 350 MG/ML 100ML IJ ONE (12:45)
[2025-10-03 12:46] LABS: Amphetamine Screen, Urine Neg (NEGATIVE); Barbiturate Scree,Urine Neg (NEGATIVE); Benzodiazephine Screen, Urine Neg (NEGATIVE); Cocaine Screen, Urine Neg (NEGATIVE); Opiate Scree,Urine Neg (NEGATIVE); Phencyclidine Screen, Urine Neg (NEGATIVE)
[2025-10-03 12:51] LABS: Urine Protein, UAD TRACE (Negative)
--- NOTE | 2025-10-03 12:54 | DVHINCON2 ---
Date Seen: Oct 03, 2025 Referring Physician Sd NOBLE Reason for Consultation chest pain History of Present Illness This is a 65-year-old female with a past medical history of HFpEF, COPD, diabetes mellitus, hyperlipidemia, hypertension, and long-standing recurrent pleural and pericardial effusions. She has undergone several pericardiocenteses since 2018 and ultimately required a pericardial window in 2023. Review of prior records shows that in 2019 she was found to have a large heterogeneous pelvic mass on MRI, described as a possible uterine or ovarian neoplasm with distortion of normal uterine architecture, though the patient reports that before the pandemic she underwent a hysterectomy with removal of all female organs at [facility]. She is a poor historian and has limited details about the malignancy or the extent of surgery. She now presents with three days of chest pain and progressive shortness of breath. The chest discomfort is vague and pressure-like and improves when she lies on her right side. She denies fever, cough, palpitations, or leg swelling. She does report orthopnea and fatigue. On arrival, her blood pressure was soft at 102 over 70. She appeared mildly dyspneic but was able to speak in full sentences. In the ED: An ECOSTAT was obtained, revealing a large pericardial effusion with echocardiographic signs concerning for tamponade physiology. She was urgently evaluated given her soft blood pressures and exam findings of muffled heart sounds and jugular venous distention along the left side of the neck. No peripheral edema was noted. The case was discussed with Dr. Mesa from cardiology. Given her symptoms, exam, and imaging, the recommendation is pericardiocentesis. PAST MEDICAL HISTORY HFpEF, COPD, diabetes mellitus, hyperlipidemia, hypertension, recurrent pleural effusions, recurrent pericardial effusions status post multiple pericardiocenteses and pericardial window (2023), history of pelvic mass with re ported hysterectomy and bilateral removal of reproductive organs. PAST SURGICAL HISTORY Multiple pericardiocenteses, pericardial window in 2023, reported hysterectomy with removal of ovaries and uterus before the pandemic. Smoke: No, she smoked before ALCOHOL: occassional Drugs: None Lives: Other Domestic Violence: Neg Family History: Bone cancer G8 BROTHER Diabetes mellitus G8 BROTHER Allergies: Coded Allergies: NO KNOWN ALLERGIES (Unverified , 02/04/19) Home Meds Active Scripts Furosemide (Furosemide) 40 Mg Tab, 1 TAB PO DAILYPRN PRN, #30 TAB 0 Refills Prov:GABRIELA LUIS MD 02/23/19 Lisinopril (Lisinopril) 5 Mg Tab, 5 MG PO DAILY for 30 Days, #30 TAB Prov:GABRIELA LUIS MD 02/23/19 Reported Medications Metoprolol Succinate (Metoprolol Succinate Er) 50 Mg Tab, 1 TAB PO DAILY 10/03/25 Allopurinol (Allopurinol) 100 Mg Tab, 1 TAB PO DAILY 10/03/25 Gabapentin (Gabapentin) 800 Mg Tab, 1 TAB PO TID 10/03/25 Metformin Hydrochloride (Metformin Hcl) 500 Mg Tab, 500 MG PO IBID for 30 Days, MG 02/14/19 Hctz (Hydrochlorothiazide) 25 Mg Tab, 25 MG PO DAILY, TAB 02/14/19 Brimonidine Tartrate (Brimonidine Tartrate) 0.2 % Rubi, 1 DROP EACHEYE TID for glaucoma, #10 ML 3 Refills 02/13/19 Current Medications Current Medications Medications (Trade) Dose Ordered Sig/Yuli Route PRN Reason Start Time Stop Time Status Last Admin Ceftriaxone Sodium 50 ml @ 100 mls/hr DAILY@09 IV 10/04/25 09:00 Albuterol (Ventolin Medneb) 2.5 mg Q4HWA NEB 10/03/25 10:00 10/03/25 10:28 Ipratropium [place] (Atrovent Medneb) 0.5 mg Q4HWA NEB 10/03/25 10:00 10/03/25 10:28 Aspirin 81 mg DAILY PO 10/04/25 10:00 Atorvastatin Calcium (Lipitor) 40 mg HS PO 10/03/25 22:00 Morphine Sulfate 2 mg Q30MP PRN IV FOR CHEST PAIN 10/03/25 10:00 10/03/25 10:19 DC Acetaminophen (Tylenol Tablet) 650 mg Q6HP PRN PO MILD PAIN (1-3 PAIN SCALE) 10/03/25 10:00 Nitroglycerin (Ntrostat Sublingual) 0.4 mg Q5MINP PRN SL FOR CHEST PAIN 10/03/25 10:00 10/03/25 10:20 DC Ondansetron HCl (Zofran) 4 mg Q4HP PRN IV NAUSEA / VOMITING 10/03/25 10:00 Nitroglycerin (Ntrostat Sublingual) 0.4 mg Q5MINP PRN SL FOR CHEST PAIN 10/03/25 10:00 Morphine Sulfate 2 mg Q30M PRN IV FOR CHEST PAIN 10/03/25 10:00 Diagnostic Test (Pha) (Accu-Chek Comfort Curve T) 1 strip ACHS 10/03/25 11:30 Insulin Human Regular (InsuLIN R) ACHS SC 10/03/25 11:30 Dextrose 50 ml UD PRN IV Blood Sugar LESS THAN 60 10/03/25 10:00 Brimonidine Tartrate (ALPHAGAN 0.2% OPT Soln) 1 drop TID EACHEYE 10/03/25 14:00 Hydrochlorothiazide (hydroCHLOROthiazide TABLET) 25 mg DAILY PO 10/04/25 10:00 Lisinopril (Zestril Tablet) 5 mg DAILY PO 10/04/25 10:00 Allopurinol (Zyloprim Tablet) 100 mg DAILY PO 10/04/25 10:00 Metoprolol Succinate (Toprol Xl) 50 mg DAILY PO 10/04/25 10:00 Gabapentin (Neurontin Capsule) 800 mg TID PO 10/03/25 14:00 Furosemide (Lasix Injection) 40 mg DAILY IV 10/03/25 10:30 10/03/25 10:44 Review of Systems Positive for chest pain and shortness of breath. Denies fever, chills, cough, palpitations, abdominal pain, nausea, vomiting, dysuria, leg edema, focal weakness, or syncope. Vital Signs Vital Signs Date Time Temp Pulse Resp B/P (MAP) Pulse Ox O2 Delivery O2 Flow Rate FiO2 10/03/25 12:12 99.0 105 16 102/70 99 99.0 10/03/25 11:22 Nasal Cannula* 2 28 Physical Exam Vital signs: BP 102 over 70, HR mildly tachycardic, afebrile, satting well on room air. General: Mild respiratory discomfort but alert and interactive. HEENT: No scleral icterus. Neck: JVD present along the left side. CV: Muffled heart sounds, regular rhythm, no murmurs appreciated. Lungs: Breath sounds diminished at bases but no wheezes or crackles. Abdomen: Soft, nondistended, nontender. Extremities: No edema. Neuro: Alert and oriented, nonfocal. Skin: Warm and dry. Labs/Diagnostic Data Labs Test 10/03/25 12:33 10/03/25 11:42 10/03/25 08:58 10/03/25 08:37 Range/Units Urine Color Yellow Yellow Urine Clarity Turbid H Clear Urine pH 5.5 5.0-9.0 Urine Specific [place] 1.025 1.001-1.035 Urine Protein Trace H Negative Urine Ketones Negative Negative Urine Blood Negative Negative /uL Urine Nitrite Negative Negative Urine Bilirubin Negative Negative Urine Urobilinogen 4 H Negative mg/dL Urine Leukocyte Esterase 3+ Negative /uL Urine RBC 3 0 - 4 /hpf Urine Microscopic WBC 113 H 0-5 /HPF Urine Squamous Epithelial Cells Few <5 /hpf Urine Bacteria Few H None Seen /hpf Urine Glucose Normal Normal mg/dL Urine Opiates Screen Neg NEGATIVE Urine Fentanyl Screen Neg NEGATIVE Urine Barbiturates Screen Neg NEGATIVE Urine Phencyclidine Screen Neg NEGATIVE Urine Amphetamines Screen Neg NEGATIVE Urine Benzodiazepines Screen Neg NEGATIVE Urine Cocaine Screen Neg NEGATIVE Urine Cannabinoids Screen Neg NEGATIVE White Blood Count 8.8 4.4-10.8 10^3/uL Red Blood Count 4.05 4.0-5.20 10^6/uL Hemoglobin 11.7 L 12.2-16.2 g/dL Hematocrit 36.4 36.0-46.0 % Mean Corpuscular Volume 90.0 80.0-100.0 fL Mean Corpuscular Hemoglobin 28.9 28.0-32.0 pg Mean Corpuscular Hemoglobin Concent 32.1 32.0-36.0 g/dL Red Cell Distribution Width 13.8 11.8-14.3 % Platelet Count 296 140-450 10^3/uL Mean Platelet Volume 9.4 6.9-10.8 fL Neutrophils (%) (Auto) 67.6 37.0-80.0 % Lymphocytes (%) (Auto) 18.4 10.0-50.0 % Monocytes (%) (Auto) 13.0 H 0.0-12.0 % Eosinophils (%) (Auto) 0.4 0.0-7.0 % Basophils (%) (Auto) 0.6 0.0-2.0 % Neutrophils # (Auto) 6.0 1.6-8.6 10 ^3/uL Lymphocytes # (Auto) 1.6 0.4-5.4 10 ^3/uL Monocytes # (Auto) 1.1 0-1.3 10 ^3/uL Eosinophils # (Auto) 0 0-0.8 10 ^3/uL Basophils # (Auto) 0.1 0-0.2 10 ^3/uL Nucleated Red Blood Cells 0.0 % Sodium Level 143 136-145 mmol/L Potassium Level 3.6 3.5-5.1 mmol/L Chloride Level 102 98-107 mmol/L Carbon Dioxide Level 30 20-31 mmol/L Anion Gap 11 5-15 Blood Urea Nitrogen 21 9-23 mg/dL Creatinine 1.04 H 0.550-1.02 mg/dL Glomerular Filtration Rate Calc 60 >90 mL/min BUN/Creatinine Ratio 20.2 H 10.0-20.0 Serum Glucose 152 H 74-106 mg/dL Hemoglobin A1c 6.4 H <5.7 % A1C Calcium Level 10.0 8.7-10.4 mg/dL B-Type Natriuretic Peptide 75.62 0-100 pg/mL Thyroid Stimulating Hormone (TSH) 1.61 0.55-4.78 uIU/mL Free Thyroxine (T4) Calculated 1.32 0.89-1.76 ng/dL POC Glucose 171 H 70-106 mg/dl Assessment A 65-year-old female with a history of HFpEF, COPD, diabetes, hypertension, h yperlipidemia, and chronic recurrent pericardial effusions presenting with chest pain and dyspnea found to have tamponade requiring pericardiocentesis. 1. Large pericardial effusion with tamponade . s/p pericardial tamponade drainage Etiology unclear; possible malignant, inflammatory, or post-surgical given history of pelvic mass and prior pericardial window. Exam shows muffled heart sounds and JVD, with soft blood pressure. ECOSTAT confirms tamponade. Case discussed with Dr Mesa; patient should be transfered to [facility], continue antibiotics, drain precautions, ECHO post 24 h 2. HFpEF, chronic. Complicated by recurrent effusions. Hold diuretics for now due to soft blood pressures. Monitor volume status. 3. COPD. Currently without wheezing or exacerbation. 4. Diabetes mellitus. Check glucose, restart insulin sliding scale when stable. Clarify home regimen. 5. Hypertension and hyperlipidemia. Hold antihypertensives due to low BP. Continue statin when stable. 6. History of pelvic mass and hysterectomy. Unknown malignancy status. CT scan of abdomen and pelvis with contrast, oncologic markers Case discussed with Dr Mesa Plan discussed with: Patient NYHA Physical activity limitations: Class2(Slight)fatigue,sob Date of Service: Oct 03, 2025 Billing Provider: COLLETTE RODRIGUEZ MD Cardiology Common Codes: [id number] CARE 30-74 MIN GIOVANNI HARPER RESIDENT Oct 03, 2025 12:54
[2025-10-03] MEDS: GABAPENTIN 400 MG CAP PO SCH (14:00)
[2025-10-03] MEDS: BRIMONIDINE 0.2% OPTH Soln 5ml EACHEYE SCH (14:00)
[2025-10-03] MEDS: fentaNYL CITRATE 100 MCG/2 ML VL ONE (14:16)
[2025-10-03] MEDS: LIDOCAINE 2%HCL (LOCAL ANESTH.) INJ 20ML MDV ONE (14:16)
[2025-10-03] MEDS: MIDAZOLAM HCL 2MG/2ML 2ml VIAL (1mg/ml) ONE (14:17)
[2025-10-03 14:19] LABS: INR 1.07 (0.9-1.15); Partial Thromboplastin Time 31.0 SEC (24.5-34.5); Prothrombin Time 11.3 sec (9.3-11.8)
[2025-10-03] MEDS: HYDROmorphone HCL 2 MG/ML VL/or syr ONE (14:29)
--- NOTE | 2025-10-03 14:36 | ECG ---
[facility] Test Date: 2025-10-03 Test Time: 08:03:52 Pat Name: LEXII PEREZ Department: [facility] ED Patient ID: [id number] Room: [address] [place] [address] Gender: F [employer] Analyst: TASHIA : 1960 Requested By: KARLOS MORENO Order Number: [id number] Reading MD: Bhargav Cid Measurements Intervals [place] Rate: 105 P: 71 NE: 157 QRS: -11 QRSD: 82 T: 24 QT: 338 QTc: 447 Interpretive Statements Sinus tachycardia Low voltage, precordial leads Electronically Signed On 10-06-2025 10:55:44 PST by Bhargav Cid Please click the below link to view image of tracing.
--- NOTE | 2025-10-03 16:05 | DVHOP ---
DATE OF SURGERY: 10/03/2025 The patient with a remote history of cancer of the pelvis. It is not clear whether it is ovarian, uterine, or even colonic at this time. The patient apparently about 5 years ago had complete resection of the abdomen and was told that she may have been cancer-free. It was surgically resected. But it is not clear. We will do a CA 19-9 and CA 125. The patient should have a CT of the abdomen and pelvis. In fact, the patient should also have a PET and CT as well as an outpatient. In the meantime, the patient presented with severe shortness of breath and chest pain. It appears as though the patient has significant pericardial effusion. This is the third time that she had had a pericardial effusion and she has had pericardiocentesis on several occasions followed by pericardial window. Now we will attempt another pericardiocentesis. PROCEDURE PERFORMED: Conscious sedation to pericardiocentesis, pericardial fluid. The patient in tamponade physiology. Chronic effusion. Needs to rule out for malignancy, rule out for inflammatory process as well. DESCRIPTION OF PROCEDURE: The patient was prepped and draped in a sterile condition. 1% Xylocaine was used to anesthetize the subxiphoid region. Then, using a 10-blade, linear incision was used. Using blunt dissection and electrocautery, the pocket was then dissected out. Using a trocar, we able to make a track. Then, using a pericardiocentesis needle, it was appropriately positioned in the apex of the pericardium through the pericardial wall under both fluoroscopy guidance as well as ultrasound guidance. Agitated saline was injected to visualize the proper placement of the pericardial needle. Following that, using a stiff wire, a Supra Core wire was placed into the pericardial space. A 9-Gambian dilator was used to dilate the tract. Following that, a pericardiocentesis catheter was placed in the pericardium. We were able to extract approximately 700 mL of serous fluid. It will be sent for cell count, chemistry, as well as culture and cytology. In the meantime, we will leave the catheter in for continued drain. Reimaging with echo will be done in 24 hours. CONCLUSION: The patient with tamponade physiology with pericardial effusion status post successful pericardiocentesis without any complication. Moshe Acosta MD SA/RAMON TID: [id number] RECEIPT: [id number]
--- NOTE | 2025-10-03 16:07 | DVHSR ---
APPROVED REPORT EXAM: LIMITED Two-dimensional and M-mode echocardiogram. Blood Pressure: 85/48 mmHg INDICATION Chest Pain Conclusion LARGE PERICARDIAL EFFUSION CONC [facility]AMPONADE PHYSIOLOGY
[2025-10-03] MEDS: InsuLIN REG 1unit/0.01ml Soln (100units/ml) SC SCH (17:00)
[2025-10-03] MEDS: ceFAZolin 1GM/50ML 50 ML IV ONE (21:22)
[2025-10-03] MEDS: ACETAMINOPHEN 325 MG TAB PO PRN (21:40)
[2025-10-03] MEDS: ATORVASTATIN 20 MG TAB PO SCH (21:43)
[2025-10-03] MEDS: ceFAZolin 1GM/50ML 50 ML IV SCH (22:12)
[2025-10-03] MEDS: MORPHINE SULFATE INJ 2 MG/ml SYRG IV PRN (23:06)
[2025-10-03] MEDS: MORPHINE SULFATE 4 MG/ML SYR/VIAL ONE (23:09)
[2025-10-04] VITALS (37 sets, daily range): BP systolic 104–173; BP diastolic 54–142; PULSE 67–124; RESP 15–31; TEMP 98.7–101; O2SAT 93–100
[2025-10-04 07:03] LABS: Hematocrit 38.7 % (36.0-46.0); Hemoglobin 12.4 g/dL (12.2-16.2); Mean Corpuscular Hemoglobin 29.1 pg (28.0-32.0); Mean Corpuscular Volume 90.7 fL (80.0-100.0); Nucleated Red Blood Cells % 0.0 %
[2025-10-04 08:48] LABS: Alkaline Phosphatase 91 U/L (46-116); Anion Gap 12 (5-15); BUN/Creatinine Ratio 20.9 (10.0-20.0); Blood Urea Nitrogen 18 mg/dL (9-23); Calcium 9.5 mg/dL (8.7-10.4); Carbon Dioxide 30 mmol/L (20-31); Chloride 102 mmol/L (98-107); Potassium 4.1 mmol/L (3.5-5.1); Sodium 144 mmol/L (136-145)
[2025-10-04 08:49] LABS: Alanine Aminotransferase 48 U/L (7-40); Glucose 140 mg/dL (74-106); Magnesium 1.9 mg/dL (1.6-2.6); Total Protein 6.8 g/dL (5.7-8.2); Triglycerides 78 mg/dL (< 150)
[2025-10-04 08:50] LABS: Albumin 3.8 g/dL (3.2-4.8); Cholesterol 140 mg/dL (< 200)
[2025-10-04 08:51] LABS: Bilirubin, Total 0.6 mg/dL (0.2-1.0)
[2025-10-04 08:54] LABS: HDL Cholesterol 60 mg/dL (40-59)
[2025-10-04] MEDS ORDERED: hydroCHLOROthiazide 25 MG TAB PO SCH (10:00)
[2025-10-04] MEDS: ALLOPURINOL 100 MG TAB PO SCH (10:00)
[2025-10-04] MEDS ORDERED: METOPROLOL SUCCINATE XL 50 MG TAB PO SCH (10:00)
[2025-10-04] MEDS ORDERED: LISINOPRIL 5 MG TAB PO SCH (10:00)
--- NOTE | 2025-10-04 11:30 | DVHPNRES ---
Progress Note Date Seen: Oct 04, 2025 Resident Creating Document: GIOVANNI HARPER RESIDENT Has the PT tested + for MRSA If YES, has PT been informed?: No Medical Necessity Reason Pt with a Central, PICC or Fol: No Subjective Review of Systems This is a 65-year-old female with a past medical history of HFpEF, COPD, diabetes mellitus, hyperlipidemia, hypertension, and long-standing recurrent pleural and pericardial effusions. She has undergone several pericardiocenteses since 2018 and ultimately required a pericardial window in 2023. Review of prior records shows that in 2019 she was found to have a large heterogeneous pelvic mass on MRI, described as a possible uterine or ovarian neoplasm with distortion of normal uterine architecture, though the patient reports that before the pandemic she underwent a hysterectomy with removal of all female organs at [facility]. She is a poor historian and has limited details about the malignancy or the extent of surgery. She now presents with three days of chest pain and progressive shortness of breath. The chest discomfort is vague and pressure-like and improves when she lies on her right side. She denies fever, cough, palpitations, or leg swelling. She does report orthopnea and fatigue. On arrival, her blood pressure was soft at 102 over 70. She appeared mildly dyspneic but was able to speak in full sentences. In the ED: An ECOSTAT was obtained, revealing a large pericardial effusion with echocardiographic signs concerning for tamponade physiology. She was urgently evaluated given her soft blood pressures and exam findings of muffled heart sounds and jugular venous distention along the left side of the neck. No peripheral edema was noted. The case was discussed with Dr. Mesa from cardiology. Given her symptoms, exam, and imaging, the recommendation is pericardiocentesis. PAST MEDICAL HISTORY HFpEF, COPD, diabetes mellitus, hyperlipidemia, hypertension, recurrent pleural effusions, recurrent pericardial effusions status post multiple pericardiocenteses and pericardial window (2023), history of pelvic mass with reported hysterectomy and bilateral removal of reproductive organs. PAST SURGICAL HISTORY Multiple pericardiocenteses, pericardial window in 2023, reported hysterectomy with removal of ovaries and uterus before the pandemic. 10/04/25: pericardiocentesis done drainage at OR 700cc, later at 7: 45 pm 950 cc serosanguineous drained, patient states that she is feeling better, BP stable, pending CT scan and ECHO post procedure. T 99.3 we will continue AB, UA also showed possible UTI. Objective vital signs Vital Sign Date Time Temp Pulse Resp B/P (MAP) Pulse Ox O2 Delivery O2 Flow Rate FiO2 10/04/25 10:06 101 20 99 10/04/25 09:59 Nasal Cannula 2.0 10/04/25 09:59 28 10/04/25 04:00 99.2 143/75 (97) 99.2 Total Intake and Output 10/03/25 10/03/25 10/04/25 15:00 23:00 07:00 Intake Total 300 ml 220 ml Output Total 300 ml 1100 ml Balance -300 ml -800 ml 220 ml medications Current Medications Medications Dose Ordered Sig/Yuli Route Start Time Stop Time Status Last Admin Dose Admin Albuterol 2.5 mg Q4HWA [facility] 10/03/25 10:00 10/04/25 10:08 2.5 MG Ipratropium [place] 0.5 mg Q4HWA [facility] 10/03/25 10:00 10/04/25 10:08 0.5 MG Atorvastatin Calcium 40 mg HS PO 10/03/25 22:00 10/03/25 21:43 40 MG Acetaminophen 650 mg Q6HP PRN PO 10/03/25 10:00 10/03/25 21:40 650 MG Ondansetron HCl 4 mg Q4HP PRN IV 10/03/25 10:00 Morphine Sulfate 2 mg Q30M PRN IV 10/03/25 10:00 10/03/25 23:06 2 MG Diagnostic Test (Pha) 1 strip ACHS 10/03/25 11:30 10/04/25 07:00 1 STRIP Insulin Human Regular ACHS SC 10/03/25 11:30 10/04/25 06:33 2 UNITS Dextrose 50 ml UD PRN IV 10/03/25 10:00 Brimonidine Tartrate 1 drop TID EACHEYE 10/03/25 14:00 10/04/25 06:09 1 DROP Gabapentin 800 mg TID PO 10/03/25 14:00 10/04/25 05:45 800 MG Cefazolin Sodium 50 ml @ 100 mls/hr Q8HR IV 10/03/25 22:00 10/04/25 05:44 100 MLS/HR Morphine Sulfate 2 mg Q6HP PRN IV 10/04/25 11:15 Examination General: alert, mild distress HEENT: No scleral icterus. Neck: no JVD CV: , regular rhythm, no murmurs appreciated. Lungs: Breath sounds diminished at bases but no wheezes or crackles. Abdomen: Soft, nondistended, nontender. Extremities: No edema. Neuro: Alert and oriented, nonfocal. Skin: Warm and dry. laboratory and microbiology Laboratory Tests 10/04/25 06:13 Test 10/04/25 06:13 Range/Units Serum Glucose 140 H 74-106 mg/dL Microbiology Date/Time Source Procedure Growth Status 10/03/25 16:50 Aspirate Gram Stain - Final Resulted 10/03/25 16:50 Aspirate Body Fluid Culture - Preliminary No growth Resulted 10/03/25 08:58 Blood Blood Culture - Preliminary NO GROWTH AFTER 24 HOURS OF INCUBATION. Resulted Problem List/Assessment/Plan Problem List/Assessment/Plan 1. Large pericardial effusion with tamponade . s/p pericardial tamponade drainage Etiology unclear; possible malignant, inflammatory, or post-surgical given history of pelvic mass and prior pericardial window. 10/04/25: pericardiocentesis done drainage at OR 700cc, later at 7: 45 pm 950 cc serosanguineous drained, patient states that she is feeling better, BP stable, pending CT scan and ECHO post procedure. 2. UTI T 99.3 we will continue AB, UA also showed possible UTI, pending urine culture, blood culture negative 3. HFpEF, chronic. Complicated by recurrent effusions. Hold diuretics for now due to soft blood pressures. Monitor volume status. 4. COPD. Currently without wheezing or exacerbation. 5. Diabetes mellitus. Check glucose, restart insulin sliding scale 6. Hypertension and hyperlipidemia. Hold antihypertensives due to low BP. Continue statin when stable. 7. History of pelvic mass and hysterectomy. Unknown malignancy status. CT scan of abdomen and pelvis with contrast, oncologic markers Case discussed with Dr Mesa Plan discussed with: Patient, Other (rn) My Orders My Orders Orders - GIOVANNI HARPER Procedure Category Date Status Time Npo Except For RUPA 10/04/25 In Process Medications 00:01 Obtain Consent For: ORDERS 10/03/25 Transmitted 12:34 Hold Enoxaparin Day RUPA 10/04/25 In Process Of Procedu 00:01 Provide Education RUPA 10/03/25 In Process Materials 12:34 Obtain Consent For RUPA 10/03/25 In Process Anesthesia 12:34 Ca 125 (Serial) LAB 10/03/25 In Process 13:36 Ct Ab Pel Wo Con-No CT 10/04/25 Logged Oral Or Iv 04:00 Transfer Orders XFER 10/03/25 Transmitted 14:54 Echo 2d Mode Cardiac US 10/04/25 Logged DOP 14:55 Mrsa Screen HILARIO 10/04/25 In Process 04:56 Urine Bacterial HILARIO 10/04/25 In Process Culture 11:08 Morphine Sulfate PHA 10/04/25 In Process Injection 11:15 Visit Coding Cardiology RES Date of Service: Oct 04, 2025 Billing Provider: COLLETTE RODRIGUEZ MD Cardiology Common Codes: [id number] CARE 30-74 MIN GIOVANNI HARPER RESIDENT Oct 04, 2025 11:30
--- NOTE | 2025-10-04 11:59 | DVHPN2 ---
Progress Note - Dictate Date Seen: Oct 03, 2025 Medical Necessity Reason Pt with a Central, PICC or Fol: No Subjective PT WITH HX OF PELVIC/ GI MALIGNANCY S/P RESECTION CT OF ABD PELVIS PENDING NOW WITH RECURRENT PERICARDIAL EFFUSION PT HAS HAD 3 [PERICARDIOCENTESIS WITH APPARENT PERICARDIAL WINDOW BUT NOW WITH PERICARDIAL EFFUSION WITH TAMPONADE PHYSIOLOGY TOTAL OF 1500 CC HAS BEEN DRAINED REPEAT ECHO PENDING PT HAS NO INSIGHT TO HER DISEASE PROCESS MORBID OBESITY vital signs Vital Sign Date Time Temp Pulse Resp B/P (MAP) Pulse Ox O2 Delivery O2 Flow Rate FiO2 10/04/25 10:06 101 20 99 10/04/25 09:59 Nasal Cannula 2.0 10/04/25 09:59 28 10/04/25 04:00 99.2 143/75 (97) 99.2 Total Intake and Output 10/03/25 10/03/25 10/04/25 14:59 22:59 06:59 Intake Total 200 ml 320 ml Output Total 300 ml 1100 ml Balance -300 ml -900 ml 320 ml medications Current Medications Medications Dose Ordered Sig/Yuli Route Start Time Stop Time Status Last Admin Dose Admin Albuterol 2.5 mg Q4HWA [facility] 10/03/25 10:00 10/04/25 10:08 2.5 MG Ipratropium [place] 0.5 mg Q4HWA NEB 10/03/25 10:00 10/04/25 10:08 0.5 MG Atorvastatin Calcium 40 mg HS PO 10/03/25 22:00 10/03/25 21:43 40 MG Acetaminophen 650 mg Q6HP PRN PO 10/03/25 10:00 10/03/25 21:40 650 MG Ondansetron HCl 4 mg Q4HP PRN IV 10/03/25 10:00 Morphine Sulfate 2 mg Q30M PRN IV 10/03/25 10:00 10/03/25 23:06 2 MG Diagnostic Test (Pha) 1 strip ACHS 10/03/25 11:30 10/04/25 07:00 1 STRIP Insulin Human Regular ACHS SC 10/03/25 11:30 10/04/25 06:33 2 UNITS Dextrose 50 ml UD PRN IV 10/03/25 10:00 Brimonidine Tartrate 1 drop TID EACHEYE 10/03/25 14:00 10/04/25 06:09 1 DROP Gabapentin 800 mg TID PO 10/03/25 14:00 10/04/25 05:45 800 MG Cefazolin Sodium 50 ml @ 100 mls/hr Q8HR IV 10/03/25 22:00 10/04/25 05:44 100 MLS/HR Morphine Sulfate 2 mg Q6HP PRN IV 10/04/25 11:15 laboratory and microbiology Laboratory Tests 10/04/25 06:13 Test 10/04/25 06:13 Range/Units Serum Glucose 140 H 74-106 mg/dL Problem List HX OF PELVIC/ GI MALIGNANCY S/P RESECTION CT OF ABD PELVIS PENDING NOW WITH RECURRENT PERICARDIAL EFFUSION PT HAS HAD 3 [PERICARDIOCENTESIS WITH APPARENT PERICARDIAL WINDOW BUT NOW WITH PERICARDIAL EFFUSION WITH TAMPONADE [facility]YSIOLOGY TOTAL OF 1500 CC HAS BEEN DRAINED REPEAT ECHO PENDING PT HAS NO INSIGHT TO HER DISEASE PROCESS MORBID OBESITY Assessment/Plan PT WITH PERICARDIAL DRAIN REPEAT ECHO ABX CX OF FLUID NEGATIVE GRAM STAIN NEGATIVE CELL COUNT NO CONSISTENT WITH MALIGNANCY BUT MORE CONSISTENT WITH REACTIVE / INFLAMMATORY ETIOLOGY CYTOLOGY PENDING CHEMISTRY PENDING CONSIDER COLCHICINE AND RILONACEPT( FDA APPROVED) OR ANAKINRA ( NOT APPROVED YET) Plan discussed with: Patient Critical Care Time(min): 35 COLLETTE RODRIGUEZ MD Oct 04, 2025 11:59
--- NOTE | 2025-10-04 12:00 | DVHPN2 ---
Progress Note - Dictate Date Seen: Oct 04, 2025 Medical Necessity Reason Pt with a Central, PICC or Fol: No Subjective PT WITH HX OF PELVIC/ GI MALIGNANCY S/P RESECTION CT OF ABD PELVIS PENDING NOW WITH RECURRENT PERICARDIAL EFFUSION PT HAS HAD 3 [PERICARDIOCENTESIS WITH APPARENT PERICARDIAL WINDOW BUT NOW WITH PERICARDIAL EFFUSION WITH TAMPONADE PHYSIOLOGY TOTAL OF 1500 CC HAS BEEN DRAINED REPEAT ECHO PENDING PT HAS NO INSIGHT TO HER DISEASE PROCESS MORBID OBESITY vital signs Vital Sign Date Time Temp Pulse Resp B/P (MAP) Pulse Ox O2 Delivery O2 Flow Rate FiO2 10/04/25 10:06 101 20 99 10/04/25 09:59 Nasal Cannula 2.0 10/04/25 09:59 28 10/04/25 04:00 99.2 143/75 (97) 99.2 Total Intake and Output 10/03/25 10/03/25 10/04/25 14:59 22:59 06:59 Intake Total 200 ml 320 ml Output Total 300 ml 1100 ml Balance -300 ml -900 ml 320 ml medications Current Medications Medications Dose Ordered Sig/Yuli Route Start Time Stop Time Status Last Admin Dose Admin Albuterol 2.5 mg Q4HWA [facility] 10/03/25 10:00 10/04/25 10:08 2.5 MG Ipratropium [place] 0.5 mg Q4HWA [facility] 10/03/25 10:00 10/04/25 10:08 0.5 MG Atorvastatin Calcium 40 mg HS PO 10/03/25 22:00 10/03/25 21:43 40 MG Acetaminophen 650 mg Q6HP PRN PO 10/03/25 10:00 10/03/25 21:40 650 MG Ondansetron HCl 4 mg Q4HP PRN IV 10/03/25 10:00 Morphine Sulfate 2 mg Q30M PRN IV 10/03/25 10:00 10/03/25 23:06 2 MG Diagnostic Test (Pha) 1 strip ACHS 10/03/25 11:30 10/04/25 07:00 1 STRIP Insulin Human Regular ACHS SC 10/03/25 11:30 10/04/25 06:33 2 UNITS Dextrose 50 ml UD PRN IV 10/03/25 10:00 Brimonidine Tartrate 1 drop TID EACHEYE 10/03/25 14:00 10/04/25 06:09 1 DROP Gabapentin 800 mg TID PO 10/03/25 14:00 10/04/25 05:45 800 MG Cefazolin Sodium 50 ml @ 100 mls/hr Q8HR IV 10/03/25 22:00 10/04/25 05:44 100 MLS/HR Morphine Sulfate 2 mg Q6HP PRN IV 10/04/25 11:15 laboratory and microbiology Laboratory Tests 10/04/25 06:13 Test 10/04/25 06:13 Range/Units Serum Glucose 140 H 74-106 mg/dL Problem List HX OF PELVIC/ GI MALIGNANCY S/P RESECTION CT OF ABD PELVIS PENDING NOW WITH RECURRENT PERICARDIAL EFFUSION PT HAS HAD 3 [PERICARDIOCENTESIS WITH APPARENT PERICARDIAL WINDOW BUT NOW WITH PERICARDIAL EFFUSION WITH TAMPONADE PHYSIOLOGY TOTAL OF 1500 CC HAS BEEN DRAINED REPEAT ECHO PENDING PT HAS NO INSIGHT TO HER DISEASE PROCESS MORBID OBESITY Assessment/Plan PT WITH PERICARDIAL DRAIN REPEAT ECHO ABX CX OF FLUID NEGATIVE GRAM STAIN NEGATIVE CELL COUNT NO CONSISTENT WITH MALIGNANCY BUT MORE CONSISTENT WITH REACTIVE / INFLAMMATORY ETIOLOGY CYTOLOGY PENDING CHEMISTRY PENDING CONSIDER COLCHICINE AND RILONACEPT( FDA APPROVED) OR ANAKINRA ( NOT APPROVED YET) Plan discussed with: Patient Critical Care Time(min): 35 COLLETTE RODRIGUEZ MD Oct 04, 2025 12:00
[2025-10-04] MEDS: MAGNESIUM SULFATE 1GM/100ML 100 ML IV ONE (12:30)
[2025-10-04] MEDS: MORPHINE SULFATE 4 MG/ML SYR/VIAL ONE (12:49)
[2025-10-04] MEDS: MORPHINE SULFATE INJ 2 MG/ml SYRG IV PRN (12:49)
[2025-10-04 13:07] LABS: Glucose, Body Fluid 145.0 mg/dL (.)
--- NOTE | 2025-10-04 13:41 | DVHPN2 ---
Subjective Doing well s/p pericardiocentesis Changes from previous H/P or p: Changes Cardiovascular: Chest Pain Respiratory: Shortness of breath Objective Vitals Vital Signs Date Time Temp Pulse Resp B/P (MAP) Pulse Ox O2 Delivery O2 Flow Rate FiO2 10/04/25 12:49 100 21 110/63 10/04/25 10:06 99 10/04/25 09:59 Nasal Cannula 2.0 10/04/25 09:59 28 10/04/25 04:00 99.2 99.2 Intake/Output Intake and Output 10/04/25 07:00 Intake Total 520 ml Output Total 1400 ml Balance -880 ml Intake Oral 320 ml IV Total 200 ml Output Urine Total 450 ml Other 950 ml # Voids 1 General Appearance: Alert, Oriented X3, Cooperative Lungs: Clear to auscultation Cardiovascular: Regular rate, Normal S1 Abdomen: Normal bowel sounds, Soft, No tenderness Extremities: No edema Medications Current Medications Medications Dose Ordered Sig/Yuli Route Start Time Stop Time Status Last Admin Dose Admin Albuterol 2.5 mg Q4HWA NEB 10/03/25 10:00 10/04/25 10:08 2.5 MG Ipratropium [place] 0.5 mg Q4HWA NEB 10/03/25 10:00 10/04/25 10:08 0.5 MG Atorvastatin Calcium 40 mg HS PO 10/03/25 22:00 10/03/25 21:43 40 MG Acetaminophen 650 mg Q6HP PRN PO 10/03/25 10:00 10/03/25 21:40 650 MG Ondansetron HCl 4 mg Q4HP PRN IV 10/03/25 10:00 Diagnostic Test (Pha) 1 strip ACHS 10/03/25 11:30 10/04/25 11:51 1 STRIP Insulin Human Regular ACHS SC 10/03/25 11:30 10/04/25 12:13 2 UNITS Dextrose 50 ml UD PRN IV 10/03/25 10:00 Brimonidine Tartrate 1 drop TID EACHEYE 10/03/25 14:00 10/04/25 06:09 1 DROP Gabapentin 800 mg TID PO 10/03/25 14:00 10/04/25 05:45 800 MG Cefazolin Sodium 50 ml @ 100 mls/hr Q8HR IV 10/03/25 22:00 10/04/25 05:44 100 MLS/HR Ketorolac Tromethamine 30 mg Q6HPRN PRN IV 10/04/25 13:45 10/09/25 13:44 UNV Colchicine 0.6 mg Q12HR PO 10/04/25 22:00 UNV Laboratory Results Laboratory Tests 10/04/25 06:13 Chemistry Test 10/04/25 06:13 Albumin 3.8 g/dL (3.2-4.8) Calcium Level 9.5 mg/dL (8.7-10.4) Magnesium Level 1.9 mg/dL (1.6-2.6) Total Protein 6.8 g/dL (5.7-8.2) Lipid panel Test 10/04/25 06:13 Cholesterol Level 140 mg/dL (< 200) HDL Cholesterol 60 mg/dL (40-59) H Triglycerides Level 78 mg/dL (< 150) LFT Test 10/04/25 06:13 Alanine Aminotransferase (ALT) 48 U/L (7-40) H Alkaline Phosphatase 91 U/L (46-116) Aspartate Amino Transferase (AST) 39 U/L (13-40) Total Bilirubin 0.6 mg/dL (0.2-1.0) Urinalysis Test 10/03/25 11:42 Urine Color Yellow (Yellow) Urine Clarity Turbid (Clear) H Urine pH 5.5 (5.0-9.0) Urine Specific [place] 1.025 (1.001-1.035) Urine Protein Trace (Negative) H Urine Ketones Negative (Negative) Urine Blood Negative /uL (Negative) Urine Nitrite Negative (Negative) Urine Bilirubin Negative (Negative) Urine Urobilinogen 4 mg/dL (Negative) H Urine Leukocyte Esterase 3+ /uL (Negative) Urine RBC 3 /hpf (0 - 4) Urine Microscopic WBC 113 /HPF (0-5) H Urine Squamous Epithelial Cells Few /hpf (<5) Urine Bacteria Few /hpf (None Seen) H Urine Glucose Normal mg/dL (Normal) Microbiology Microbiology Date/Time Source Procedure Growth Status 10/03/25 16:50 Aspirate Gram Stain - Final Resulted 10/03/25 16:50 Aspirate Body Fluid Culture - Preliminary No growth Resulted 10/03/25 08:58 Blood Blood Culture - Preliminary NO GROWTH AFTER 24 HOURS OF INCUBATION. Resulted Assessment/Plan Assessment/Plan Pericardial effusion s/p pericardiocentesis History of pelvic mass resection Recurrent pericardial effusion Morbid obesity COPD Hypertension Type 2 diabetes UTI Plan IV antibiotics cefazolin Cardiology is following Colchicine Discontinue allopurinol Monitor closely Plan discussed with: Patient Date of Service: Oct 04, 2025 Billing Provider: SIMRAN GALLO MD Common Visit Codes: [id number] INP/OBS CARE(HIGH) SIMRAN GALLO MD Oct 04, 2025 13:41
--- NOTE | 2025-10-04 15:50 | DVH ---
CLINICAL HISTORY: RULE OUT PELVIC MALIGNANCY TECHNIQUE: CT of the abdomen and pelvis was performed without intravenous contrast. This exam was performed according to our departmental dose optimization program. Up-to-date CT equipment and radiation dose reduction techniques are utilized as appropriate. CTDI: 25.42 DLP: 1229.8 WID: COMPARISON: None FINDINGS: Lower Thorax: Mild cardiomegaly with small to moderate pericardial effusion appearing partially loculated. Small bilateral pleural effusions. Mild dependent atelectasis in the bilateral lower lobes. There is a right abdominal approach drain terminating in the dome of segment 2 of the liver. Although is possibly meant to be a pericardial drain. Liver and Biliary system: Normal-sized liver. Normal caliber gallbladder. No definite hepatic lesion. There is no biliary ductal Spleen: Unremarkable. Adrenal Glands and Kidneys: Normal adrenal glands. Severe atrophy of the left kidney. Small low/intermediate density posterior upper pole left renal lesion on series 602, image 96, not optimally evaluated without contrast. There is no right hydronephrosis or nephrolithiasis. Pancreas and Retroperitoneum: Unremarkable. Aorta and Major Vessels: Aortoiliac vessels are normal in caliber containing mild calcified atherosclerotic plaque. Bowel, Mesentery and Peritoneal space: Normal caliber small and large bowel. Mild colonic diverticulosis. Trace ascites in the pelvis. No mesenteric lymphadenopathy. No loculated fluid collection or free air. Pelvis: Urinary bladder is mildly distended. There is no pelvic lymphadenopathy. Prior hysterectomy. Abdominal wall and Osseous Structures: Mild lower thoracic and lumbar spondylosis. No destructive osseous lesion. IMPRESSION: 1. No abdominal or pelvic lymphadenopathy or mass. 2. Right upper abdominal approach drain terminating in the dome of segment 2 of the liver. This is possibly meant to be a pericardial drain. Correlate with procedural history 3. Small to moderate partially loculated pericardial effusion. 4. Mild cardiomegaly. 5. Small bilateral pleural effusions and mild dependent atelectasis in the bilateral lower lobes. 6. Severe atrophy of the left kidney. 7. Mild colonic diverticulosis.
[2025-10-04] MEDS: KETOROLAC TROMETH 30 MG/ML 1ML VIAL IV PRN (21:29)
[2025-10-04] MEDS: COLCHICINE 0.6 MG CAP PO SCH (22:00)
[2025-10-05] VITALS (46 sets, daily range): BP systolic 89–133; BP diastolic 46–84; PULSE 82–128; RESP 15–29; TEMP 97.8–99.7; O2SAT 92–100
[2025-10-05] MEDS: METOPROLOL SUCCINATE XL 50 MG TAB PO ONE (02:50)
[2025-10-05 04:45] LABS: Hematocrit 37.6 % (36.0-46.0); Hemoglobin 12.1 g/dL (12.2-16.2); Mean Corpuscular Hemoglobin 29.1 pg (28.0-32.0); Mean Corpuscular Volume 90.0 fL (80.0-100.0); Nucleated Red Blood Cells % 0.0 %
[2025-10-05 04:57] LABS: Albumin 4.0 g/dL (3.2-4.8); Alkaline Phosphatase 103 U/L (46-116); Anion Gap 11 (5-15); BUN/Creatinine Ratio 13.8 (10.0-20.0); Bilirubin, Total 0.5 mg/dL (0.2-1.0); Blood Urea Nitrogen 13 mg/dL (9-23); Calcium 9.8 mg/dL (8.7-10.4); Carbon Dioxide 29 mmol/L (20-31); Chloride 101 mmol/L (98-107); Magnesium 2.2 mg/dL (1.6-2.6); Potassium 3.7 mmol/L (3.5-5.1); Sodium 141 mmol/L (136-145); Total Protein 7.1 g/dL (5.7-8.2)
[2025-10-05 06:16] LABS: Alanine Aminotransferase 54 U/L (7-40); Glucose 114 mg/dL (74-106)
--- NOTE | 2025-10-05 09:38 | ECG ---
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
--- NOTE | 2025-10-05 09:40 | ECG ---
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
--- NOTE | 2025-10-05 09:57 | DVHPN2 ---
Subjective Tachycardic with a SVT heart rate 140 Pericardiocentesis tube draining serosanguineous liquid Urine culture showed mixed Gram-positive yovany G stain from the pericardiocentesis fluid no organisms seen Changes from previous H/P or p: Changes Cardiovascular: Chest Pain Respiratory: Shortness of breath Objective Vitals Vital Signs Date Time Temp Pulse Resp B/P (MAP) Pulse Ox O2 Delivery O2 Flow Rate FiO2 10/05/25 09:00 101 18 133/75 (94) 94 10/05/25 08:00 97.9 97.9 10/05/25 08:00 Nasal Cannula* 2 28 Intake/Output Intake and Output 10/05/25 07:00 Intake Total 970 ml Output Total 10 ml Balance 960 ml Intake Oral 720 ml IV Total 250 ml Other 10 ml # Voids 2 General Appearance: Alert, Oriented X3, Cooperative Lungs: Clear to auscultation Cardiovascular: Regular rate, Normal S1 Abdomen: Normal bowel sounds, Soft, No tenderness Extremities: No edema Medications Current Medications Medications Dose Ordered Sig/Yuli Route Start Time Stop Time Status Last Admin Dose Admin Albuterol 2.5 mg Q4HWA NEB 10/03/25 10:00 10/05/25 07:41 2.5 MG Ipratropium [place] 0.5 mg Q4HWA NEB 10/03/25 10:00 10/05/25 07:41 0.5 MG Atorvastatin Calcium 40 mg HS PO 10/03/25 22:00 10/04/25 21:30 40 MG Acetaminophen 650 mg Q6HP PRN PO 10/03/25 10:00 10/04/25 23:36 650 MG Ondansetron HCl 4 mg Q4HP PRN IV 10/03/25 10:00 Diagnostic Test (Pha) 1 strip ACHS 10/03/25 11:30 10/05/25 06:24 1 STRIP Insulin Human Regular ACHS SC 10/03/25 11:30 10/05/25 06:15 2 UNITS Dextrose 50 ml UD PRN IV 10/03/25 10:00 Brimonidine Tartrate 1 drop TID EACHEYE 10/03/25 14:00 10/05/25 06:01 1 DROP Gabapentin 800 mg TID PO 10/03/25 14:00 10/05/25 06:01 800 MG Cefazolin Sodium 50 ml @ 100 mls/hr Q8HR IV 10/03/25 22:00 10/05/25 06:01 100 MLS/HR Ketorolac Tromethamine 30 mg Q6HPRN PRN IV 10/04/25 13:45 10/09/25 13:44 10/04/25 21:29 30 MG Colchicine 0.6 mg Q12HR PO 10/04/25 22:00 Metoprolol Succinate 50 mg DAILY PO 10/06/25 10:00 Laboratory Results Laboratory Tests 10/05/25 03:40 Chemistry Test 10/05/25 03:40 Albumin 4.0 g/dL (3.2-4.8) Calcium Level 9.8 mg/dL (8.7-10.4) Magnesium Level 2.2 mg/dL (1.6-2.6) Total Protein 7.1 g/dL (5.7-8.2) LFT Test 10/05/25 03:40 Alanine Aminotransferase (ALT) 54 U/L (7-40) H Alkaline Phosphatase 103 U/L (46-116) Aspartate Amino Transferase (AST) 52 U/L (13-40) H Total Bilirubin 0.5 mg/dL (0.2-1.0) Urinalysis Test 10/03/25 11:42 Urine Color Yellow (Yellow) Urine Clarity Turbid (Clear) H Urine pH 5.5 (5.0-9.0) Urine Specific [place] 1.025 (1.001-1.035) Urine Protein Trace (Negative) H Urine Ketones Negative (Negative) Urine Blood Negative /uL (Negative) Urine Nitrite Negative (Negative) Urine Bilirubin Negative (Negative) Urine Urobilinogen 4 mg/dL (Negative) H Urine Leukocyte Esterase 3+ /uL (Negative) Urine RBC 3 /hpf (0 - 4) Urine Microscopic WBC 113 /HPF (0-5) H Urine Squamous Epithelial Cells Few /hpf (<5) Urine Bacteria Few /hpf (None Seen) H Urine Glucose Normal mg/dL (Normal) Microbiology Microbiology Date/Time Source Procedure Growth Status 10/04/25 11:42 Voided Urine Urine Culture - Preliminary Resulted 10/03/25 23:55 Nose MRSA Screen - Final Complete 10/03/25 16:50 Aspirate Gram Stain - Final Resulted 10/03/25 16:50 Aspirate Body Fluid Culture - Preliminary No growth Resulted 10/03/25 08:58 Blood Blood Culture - Preliminary NO GROWTH AFTER 48 HOURS OF INCUBATION. Resulted Assessment/Plan Assessment/Plan Pericardial effusion s/p pericardiocentesis History of pelvic mass resection Recurrent pericardial effusion Morbid obesity COPD Hypertension Type 2 diabetes UTI Plan IV antibiotics cefazolin Cardiology is following Colchicine Discontinue allopurinol Monitor closely 10/05/2025: IV antibiotics: Cefazolin Colchicine Metoprolol restarted by Dr. Mesa Monitor closely MRSA screen is negative CA 19 9 and CEA are normal CA 125 is pending Plan discussed with: Patient Date of Service: Oct 05, 2025 Billing Provider: SIMRAN GALLO MD Common Visit Codes: [id number] INP/OBS CARE(HIGH) SIMRAN GALLO MD Oct 05, 2025 09:57
[2025-10-05] MEDS: ALBUTEROL SULF 2.5 MG/0.5ML(0.5%) NEB SOLN ONE ×2 (10:42→22:16)
[2025-10-05] MEDS: IPRATROPIUM BROM 0.5 MG/2.5ML INH SOL ONE ×2 (10:42→22:16)
--- NOTE | 2025-10-05 10:46 | DVHSR ---
APPROVED REPORT EXAM: LIMITED Two-dimensional and M-mode echocardiogram. Blood Pressure: 143/75 mmHg INDICATION 24 Hour Post Pericardiocentesis RISK FACTORS Height: 5' 2", Weight: 205 DIMENSIONS LVDd 4.0 (3.8-5.7cm) LA (2D) (1.9-4.0cm) Aortic Root (2.0-3.7cm) LVDs 2.6 (2.5-4.0cm) LA (MM) (1.9-4.0cm) Aortic Cusp Exc (1.5-2.0cm) EF (%) 65.0 (55-70%) Rt. Atrium (1.9-4.0cm) Asc. Aorta 3.6 cm IVSd 1.6 (0.7-1.1cm) RV (D) (1.8-2.4cm) PWd 1.4 (0.7-1.1cm) Mitral Valve Mitral Mitral Stenosis E/A ratio 0.0 2D MVA cm2 Conclusion MARKED CONC LVH SMALL POSTERIOR EF >65%RESIDUAL PERICARDIAL EFFUSION
--- NOTE | 2025-10-05 10:59 | DVH ---
CHEST RADIOGRAPH Indication: follow up on effusion Technique: Single frontal view of the chest was obtained Comparison: XY CHEST PORTABLE on DOS: 10/03/25 FINDINGS: Lines and Tubes: None Lungs: No focal consolidation. Pleura: No effusion. No pneumothorax. Cardiomediastinal contours: Stable cardiomegaly unchanged from 10/03/2025. Findings consistent with large pericardial effusion as seen on 2D echo 10/03/2025. Bones: No acute osseous abnormality. IMPRESSION: 1. Stable cardiomegaly consistent with a large pericardial effusion as noted on cardiac echo of 10/03/2025.
--- NOTE | 2025-10-05 11:40 | DVHPN2 ---
Progress Note - Dictate Date Seen: Oct 05, 2025 Has the PT tested + for MRSA If YES, has PT been informed?: No Medical Necessity Reason Pt with a Central, PICC or Fol: No Subjective PT WITH HX OF PELVIC/ GI MALIGNANCY S/P RESECTION CT OF ABD PELVIS PENDING NOW WITH RECURRENT PERICARDIAL EFFUSION PT HAS HAD 3 [PERICARDIOCENTESIS WITH APPARENT PERICARDIAL WINDOW BUT NOW WITH PERICARDIAL EFFUSION WITH TAMPONADE PHYSIOLOGY TOTAL OF 1500 CC HAS BEEN DRAINED REPEAT ECHO PENDING PT HAS NO INSIGHT TO HER DISEASE PROCESS MORBID OBESITY vital signs Vital Sign Date Time Temp Pulse Resp B/P (MAP) Pulse Ox O2 Delivery O2 Flow Rate FiO2 10/05/25 11:34 97 18 95 10/05/25 09:00 133/75 (94) 10/05/25 08:00 97.9 97.9 10/05/25 08:00 Nasal Cannula* 2 28 Total Intake and Output 10/04/25 10/04/25 10/05/25 15:00 23:00 07:00 Intake Total 580 ml 100 ml 290 ml Output Total 10 ml Balance 580 ml 100 ml 280 ml medications Current Medications Medications Dose Ordered Sig/Yuli Route Start Time Stop Time Status Last Admin Dose Admin Albuterol 2.5 mg Q4HWA NEB 10/03/25 10:00 10/05/25 11:34 2.5 MG Ipratropium [place] 0.5 mg Q4HWA NEB 10/03/25 10:00 10/05/25 11:34 0.5 MG Atorvastatin Calcium 40 mg HS PO 10/03/25 22:00 10/04/25 21:30 40 MG Acetaminophen 650 mg Q6HP PRN PO 10/03/25 10:00 10/04/25 23:36 650 MG Ondansetron HCl 4 mg Q4HP PRN IV 10/03/25 10:00 Diagnostic Test (Pha) 1 strip ACHS 10/03/25 11:30 10/05/25 06:24 1 STRIP Insulin Human Regular ACHS SC 10/03/25 11:30 10/05/25 06:15 2 UNITS Dextrose 50 ml UD PRN IV 10/03/25 10:00 Brimonidine Tartrate 1 drop TID EACHEYE 10/03/25 14:00 10/05/25 06:01 1 DROP Gabapentin 800 mg TID PO 10/03/25 14:00 10/05/25 06:01 800 MG Cefazolin Sodium 50 ml @ 100 mls/hr Q8HR IV 10/03/25 22:00 10/05/25 06:01 100 MLS/HR Ketorolac Tromethamine 30 mg Q6HPRN PRN IV 10/04/25 13:45 10/09/25 13:44 10/04/25 21:29 30 MG Colchicine 0.6 mg Q12HR PO 10/04/25 22:00 10/05/25 10:23 0.6 MG Metoprolol Succinate 50 mg DAILY PO 10/06/25 10:00 laboratory and microbiology Laboratory Tests 10/05/25 03:40 Test 10/05/25 03:40 Range/Units Serum Glucose 114 H 74-106 mg/dL Problem List HX OF PELVIC/ GI MALIGNANCY S/P RESECTION CT OF ABD PELVIS PENDING NOW WITH RECURRENT PERICARDIAL EFFUSION PT HAS HAD 3 [PERICARDIOCENTESIS WITH APPARENT PERICARDIAL WINDOW BUT NOW WITH PERICARDIAL EFFUSION WITH TAMPONADE PHYSIOLOGY TOTAL OF 1500 CC HAS BEEN DRAINED REPEAT ECHO PENDING PT HAS NO INSIGHT TO HER DISEASE PROCESS MORBID OBESITY Assessment/Plan PT WITH PERICARDIAL DRAIN REPEAT ECHO ABX CX OF FLUID NEGATIVE GRAM STAIN NEGATIVE CELL COUNT NO CONSISTENT WITH MALIGNANCY BUT MORE CONSISTENT WITH REACTIVE / INFLAMMATORY ETIOLOGY CYTOLOGY PENDING CHEMISTRY PENDING CONSIDER COLCHICINE AND RILONACEPT( FDA APPROVED) OR ANAKINRA ( NOT APPROVED YET) EPISODE OF TACHYCARDIA STARTED TOPROL XL DC PERICARDIAL DRAIN IN AM ECHO IN AM ECHO 10/04/25 STILL WITH SMALL POSTERIOR EFFUSION Plan discussed with: Patient Critical Care Time(min): 35 COLLETTE RODRIGUEZ MD Oct 05, 2025 11:40
--- NOTE | 2025-10-05 13:53 | DVHPN2 ---
Progress Note Date Seen: Oct 05, 2025 Resident Creating Document: DALE BECKETT RESIDENT Has the PT tested + for MRSA If YES, has PT been informed?: No Medical Necessity Reason Pt with a Central, PICC or Fol: No Subjective Review of Systems Patient seen and examined, overnight temperature max 101.0, patient was tachycardic, 150 beats per minute, metoprolol succinate 50 mg started. Reports feeling fine. Telemetry noted for intermittent sinus tachycardia ranging from 100 to 150s beats per minute. 20 cc of serosanguineous drainage overnight, 10 cc in the day shift. Echocardiogram from 10/04 shows small posterior effusion. Repeat echocardiogram in the morning. DC drain in a.m.. Objective vital signs Vital Sign Date Time Temp Pulse Resp B/P (MAP) Pulse Ox O2 Delivery O2 Flow Rate FiO2 10/05/25 12:00 108 10/05/25 11:42 18 100 10/05/25 11:34 Nasal Cannula* 2 28 10/05/25 09:00 133/75 (94) 10/05/25 08:00 97.9 97.9 Total Intake and Output 10/04/25 10/04/25 10/05/25 15:00 23:00 07:00 Intake Total 580 ml 100 ml 290 ml Output Total 10 ml Balance 580 ml 100 ml 280 ml medications Current Medications Medications Dose Ordered Sig/Yuli Route Start Time Stop Time Status Last Admin Dose Admin Albuterol 2.5 mg Q4HWA [facility] 10/03/25 10:00 10/05/25 11:34 2.5 MG Ipratropium [place] 0.5 mg Q4HWA [facility] 10/03/25 10:00 10/05/25 11:34 0.5 MG Atorvastatin Calcium 40 mg HS PO 10/03/25 22:00 10/04/25 21:30 40 MG Acetaminophen 650 mg Q6HP PRN PO 10/03/25 10:00 10/04/25 23:36 650 MG Ondansetron HCl 4 mg Q4HP PRN IV 10/03/25 10:00 Diagnostic Test (Pha) 1 strip ACHS 10/03/25 11:30 10/05/25 11:59 1 STRIP Insulin Human Regular ACHS SC 10/03/25 11:30 10/05/25 12:06 6 UNITS Dextrose 50 ml UD PRN IV 10/03/25 10:00 Brimonidine Tartrate 1 drop TID EACHEYE 10/03/25 14:00 10/05/25 06:01 1 DROP Gabapentin 800 mg TID PO 10/03/25 14:00 10/05/25 06:01 800 MG Cefazolin Sodium 50 ml @ 100 mls/hr Q8HR IV 10/03/25 22:00 10/05/25 06:01 100 MLS/HR Ketorolac Tromethamine 30 mg Q6HPRN PRN IV 10/04/25 13:45 10/09/25 13:44 10/05/25 12:41 30 MG Colchicine 0.6 mg Q12HR PO 10/04/25 22:00 10/05/25 10:23 0.6 MG Metoprolol Succinate 50 mg DAILY PO 10/06/25 10:00 Examination Morbidly obese female patient lying in the bed, no acute distress General: Morbidly obese, afebrile, palor, mucosae are moist Cardiovascular: Regular S1 and S2. No murmurs, gallops or rubs. No JVD elevation. No pedal edema Respiratory: Decreased breath sounds heard on auscultation, on supplementation NC Abdomen: Soft, nontender, nondistended, normoactive bowel sounds, no rebound tenderness, no organomegaly, no masses Genitourinary: Deferred MSK/skin: Mobilizes 4 limbs. Skin is dry and warm Psych/Mental Status: A/Ox3 laboratory and microbiology Laboratory Tests 10/05/25 03:40 Test 10/05/25 03:40 Range/Units Serum Glucose 114 H 74-106 mg/dL Microbiology Date/Time Source Procedure Growth Status 10/04/25 11:42 Voided Urine Urine Culture - Preliminary Resulted 10/03/25 23:55 Nose MRSA Screen - Final Complete 10/03/25 16:50 Aspirate Gram Stain - Final Resulted 10/03/25 16:50 Aspirate Body Fluid Culture - Preliminary No growth Resulted 10/03/25 08:58 Blood Blood Culture - Preliminary NO GROWTH AFTER 48 HOURS OF INCUBATION. Resulted Labs and/or images reviewed: Labs reviewed by me, Image(s) reviewed by me Problem List/Assessment/Plan Problem List/Assessment/Plan Recurrent pericardial effusion with tamponade s/p pericardial tamponade drainage Chronic Heart failure with preserved ejection fraction-no exacerbation COPD-no exacerbation Hypertension Dyslipidemia History of pelvic mass History of hysterectomy Morbid obesity Plan: Echocardiogram 10/04 showed small posterior effusion. Still draining 10 cc serosanguineous fluid. Repeat echocardiogram 10/06. Possible removal of the drain tomorrow. Etiology likely exudative, Gram stain negative, culture negative. Fluid rich in protein, RBCs, WBCs. Continue metoprolol succinate 50 mg daily, colchicine 0.6 mg b.i.d. Chest x-ray reviewed, shows persistent cardiomegaly Monitor electrolytes, K greater than 4, Mag greater than 2 Strict I&Os, cardiac diet We will continue to follow up Thank you for consulting Cardiology Plan discussed with patient in which all questions have been answered Case discussed with Dr Mesa Plan discussed with: Patient, Other (Nurse) My Orders My Orders Orders - DALE BECKETT Procedure Category Date Status Time Chest Xray 1 View XY 10/05/25 Resulted 09:45 Visit Coding Cardiology RES Date of Service: Oct 05, 2025 Billing Provider: COLLETTE RODRIGUEZ MD Cardiology Common Codes: [id number](High DALE BECKETT RESIDENT Oct 05, 2025 13:53
[2025-10-05] MEDS ORDERED: MORPHINE SULFATE 4 MG/ML SYR/VIAL IV ONE (15:45)
[2025-10-05] MEDS: MORPHINE SULFATE 4 MG/ML SYR/VIAL IV ONE (16:10)
[2025-10-06] VITALS (43 sets, daily range): BP systolic 94–150; BP diastolic 62–93; PULSE 85–148; RESP 11–35; TEMP 98.4–100.5; O2SAT 87–100
[2025-10-06 06:01] LABS: Hematocrit 36.5 % (36.0-46.0); Hemoglobin 11.9 g/dL (12.2-16.2); Mean Corpuscular Hemoglobin 29.2 pg (28.0-32.0); Mean Corpuscular Volume 89.2 fL (80.0-100.0); Nucleated Red Blood Cells % 0.0 %
[2025-10-06 06:26] LABS: Alanine Aminotransferase 32 U/L (7-40); Albumin 3.8 g/dL (3.2-4.8); Alkaline Phosphatase 90 U/L (46-116); Anion Gap 9 (5-15); BUN/Creatinine Ratio 16.3 (10.0-20.0); Blood Urea Nitrogen 14 mg/dL (9-23); Calcium 10.0 mg/dL (8.7-10.4); Carbon Dioxide 28 mmol/L (20-31); Chloride 104 mmol/L (98-107); Magnesium 2.3 mg/dL (1.6-2.6); Potassium 4.6 mmol/L (3.5-5.1); Sodium 141 mmol/L (136-145); Total Protein 7.0 g/dL (5.7-8.2)
[2025-10-06 06:27] LABS: Bilirubin, Total 0.3 mg/dL (0.2-1.0)
[2025-10-06 06:30] LABS: Glucose 135 mg/dL (74-106)
[2025-10-06] MEDS: METOPROLOL SUCCINATE XL 50 MG TAB PO SCH (06:47)
[2025-10-06] MEDS: AMIODARONE BOLUS KIT 100 ML IV ONE (07:30)
--- NOTE | 2025-10-06 08:03 | ECG ---
[facility] [place] Test Date: 2025-10-06 Test Time: 07:02:57 Pat Name: LEXII PEREZ Department: Respiratoy Room: [address] [place] [address] Gender: F Drapery Counselor: ANN-MARIE : 1960 Requested By: PRAVEEN GARCIA Order Number: [id number] Reading MD: Bhargav Cid Measurements Intervals [place] Rate: 124 P: 49 MA: 139 QRS: -14 QRSD: 81 T: 33 QT: 305 QTc: 438 Interpretive Statements Sinus tachycardia Multiform ventricular premature complexes Electronically Signed On 10-06-2025 11:12:51 PST by Bhargav Cid Please click the below link to view image of tracing.
--- NOTE | 2025-10-06 08:04 | ECG ---
Test Date: 2025-10-05 Test Time: 15:14:40 Pat Name: LEXII PEREZ Department: Respiratoy Room: [address] [place] [address] Gender: F Coffin Maker: RO : 1960 Requested By: KARLOS MORENO Order Number: [id number] Reading MD: Bhargav Cid Measurements Intervals [place] Rate: 108 P: 67 IN: 144 QRS: -24 QRSD: 87 T: 27 QT: 325 QTc: 436 Interpretive Statements Sinus tachycardia Probable left atrial enlargement Borderline left axis deviation Borderline low voltage, extremity leads RSR' in V1 or V2, probably normal variant Electronically Signed On 10-06-2025 11:12:37 PST by Bhargav Cid Please click the below link to view image of tracing.
--- NOTE | 2025-10-06 11:05 | DVHPN2 ---
Subjective The patient seen and examined at bedside. The patient complained of being tired and very sleepy. No chest pain or shortness for breath today. Reviewed: Care Plan, H&P, Labs, Medications, Previous Orders, Radiology Changes from previous H/P or p: No Changes Cardiovascular: Chest Pain Respiratory: Shortness of breath Objective Vitals Vital Signs Date Time Temp Pulse Resp B/P (MAP) Pulse Ox O2 Delivery O2 Flow Rate FiO2 10/06/25 10:11 97 12 100 10/06/25 09:00 118/85 (96) 10/06/25 08:00 Nasal Cannula* 2 28 10/06/25 07:06 98.9 Intake/Output Intake and Output 10/06/25 07:00 Intake Total 450 ml Output Total 10 ml Balance 440 ml Intake Oral 300 ml IV Total 150 ml Other 10 ml # Voids 4 General Appearance: Alert, Oriented X3, Cooperative, No acute distress HEENT: Atraumatic, PERRLA, EOMI, Mucous membr. moist/pink Lungs: Clear to auscultation, Normal air movement Cardiovascular: Regular rate, Normal S1, Normal S2, No murmurs, Gallops, Rubs Abdomen: Normal bowel sounds, Soft, No tenderness Extremities: No edema Neuro: Cranial nerves 3-12 NL Psych/Mental Status: Mental status NL Medications Current Medications Medications Dose Ordered Sig/Yuli Route Start Time Stop Time Status Last Admin Dose Admin Albuterol 2.5 mg Q4HWA [facility] 10/03/25 10:00 10/06/25 10:02 2.5 MG Ipratropium [place] 0.5 mg Q4HWA NEB 10/03/25 10:00 10/06/25 10:02 0.5 MG Atorvastatin Calcium 40 mg HS PO 10/03/25 22:00 10/05/25 21:09 40 MG Acetaminophen 650 mg Q6HP PRN PO 10/03/25 10:00 10/06/25 06:06 650 MG Ondansetron HCl 4 mg Q4HP PRN IV 10/03/25 10:00 Diagnostic Test (Pha) 1 strip ACHS 10/03/25 11:30 10/06/25 06:16 1 STRIP Insulin Human Regular ACHS SC 10/03/25 11:30 10/06/25 06:15 3 UNITS Dextrose 50 ml UD PRN IV 10/03/25 10:00 Brimonidine Tartrate 1 drop TID EACHEYE 10/03/25 14:00 10/06/25 05:19 1 DROP Gabapentin 800 mg TID PO 10/03/25 14:00 10/06/25 05:19 800 MG Cefazolin Sodium 50 ml @ 100 mls/hr Q8HR IV 10/03/25 22:00 10/06/25 05:19 100 MLS/HR Ketorolac Tromethamine 30 mg Q6HPRN PRN IV 10/04/25 13:45 10/09/25 13:44 10/05/25 12:41 30 MG Colchicine 0.6 mg Q12HR PO 10/04/25 22:00 10/06/25 09:19 0.6 MG Metoprolol Succinate 50 mg DAILY PO 10/06/25 10:00 10/06/25 06:47 50 MG Amiodarone HCl 250 ml @ 16.66 mls/ hr Q15H1M IV 10/06/25 13:45 Laboratory Results Laboratory Tests 10/06/25 05:22 Chemistry Test 10/06/25 05:22 Albumin 3.8 g/dL (3.2-4.8) Calcium Level 10.0 mg/dL (8.7-10.4) Magnesium Level 2.3 mg/dL (1.6-2.6) Total Protein 7.0 g/dL (5.7-8.2) LFT Test 10/06/25 05:22 Alanine Aminotransferase (ALT) 32 U/L (7-40) Alkaline Phosphatase 90 U/L (46-116) Aspartate Amino Transferase (AST) 30 U/L (13-40) Total Bilirubin 0.3 mg/dL (0.2-1.0) Urinalysis Test 10/03/25 11:42 Urine Color Yellow (Yellow) Urine Clarity Turbid (Clear) H Urine pH 5.5 (5.0-9.0) Urine Specific [place] 1.025 (1.001-1.035) Urine Protein Trace (Negative) H Urine Ketones Negative (Negative) Urine Blood Negative /uL (Negative) Urine Nitrite Negative (Negative) Urine Bilirubin Negative (Negative) Urine Urobilinogen 4 mg/dL (Negative) H Urine Leukocyte Esterase 3+ /uL (Negative) Urine RBC 3 /hpf (0 - 4) Urine Microscopic WBC 113 /HPF (0-5) H Urine Squamous Epithelial Cells Few /hpf (<5) Urine Bacteria Few /hpf (None Seen) H Urine Glucose Normal mg/dL (Normal) Microbiology Microbiology Date/Time Source Procedure Growth Status 10/04/25 11:42 Voided Urine Urine Culture - Preliminary Resulted 10/03/25 23:55 Nose MRSA Screen - Final Complete 10/03/25 16:50 Aspirate Gram Stain - Final Resulted 10/03/25 16:50 Aspirate Body Fluid Culture - Preliminary No growth Resulted 10/03/25 08:58 Blood Blood Culture - Preliminary NO GROWTH AFTER 72 HOURS OF INCUBATION. Resulted Labs and/or images reviewed: Labs reviewed by me Assessment/Plan Assessment/Plan Pericardial effusion s/p pericardiocentesis History of pelvic mass resection Recurrent pericardial effusion Morbid obesity COPD Hypertension Type 2 diabetes UTI Atrial fibrillation with RVR now sinus tachycardia Plan Continuing current management. Continuing With IV antibiotic cefazolin. Continuing with colchicine. Continuing with metoprolol. Per metal handler's no need to start amiodarone yet. CA 19 9 and CEA is normal Waiting to see if we can remove the drain from her pericardiocentesis. This medical document was created using an electronic medical record system with [employer] direct computerized dictation system. Although this document has been carefully reviewed, there may still be some phonetic and typographical errors. These areas are purely typographical due to imperfections of the software programs, and do not reflect any compromise in the patient's medical care. Plan discussed with: Patient Date of Service: Oct 06, 2025 Billing Provider: LILY WELLS MD Common Visit Codes: [id number] INP/OBS CARE(HIGH) LILY WELLS MD Oct 06, 2025 11:05
--- NOTE | 2025-10-06 12:49 | DVHPN2 ---
Progress Note - Dictate Date Seen: Oct 06, 2025 Has the PT tested + for MRSA If YES, has PT been informed?: No Medical Necessity Reason Pt with a Central, PICC or Fol: No Subjective PT WITH HX OF PELVIC/ GI MALIGNANCY S/P RESECTION CT OF ABD PELVIS PENDING NOW WITH RECURRENT PERICARDIAL EFFUSION PT HAS HAD 3 [PERICARDIOCENTESIS WITH APPARENT PERICARDIAL WINDOW BUT NOW WITH PERICARDIAL EFFUSION WITH TAMPONADE PHYSIOLOGY TOTAL OF 1500 CC HAS BEEN DRAINED REPEAT ECHO PENDING PT HAS NO INSIGHT TO HER DISEASE PROCESS MORBID OBESITY vital signs Vital Sign Date Time Temp Pulse Resp B/P (MAP) Pulse Ox O2 Delivery O2 Flow Rate FiO2 10/06/25 12:30 102 18 112/71 (85) 95 10/06/25 10:00 Nasal Cannula* 2 28 10/06/25 07:06 98.9 Total Intake and Output 10/05/25 10/05/25 10/06/25 15:00 23:00 07:00 Intake Total 100 ml 350 ml Output Total 10 ml Balance 100 ml 340 ml medications Current Medications Medications Dose Ordered Sig/Yuli Route Start Time Stop Time Status Last Admin Dose Admin Albuterol 2.5 mg Q4HWA NEB 10/03/25 10:00 10/06/25 10:02 2.5 MG Ipratropium [place] 0.5 mg Q4HWA NEB 10/03/25 10:00 10/06/25 10:02 0.5 MG Atorvastatin Calcium 40 mg HS PO 10/03/25 22:00 10/05/25 21:09 40 MG Acetaminophen 650 mg Q6HP PRN PO 10/03/25 10:00 10/06/25 06:06 650 MG Ondansetron HCl 4 mg Q4HP PRN IV 10/03/25 10:00 Diagnostic Test (Pha) 1 strip ACHS 10/03/25 11:30 10/06/25 11:32 1 STRIP Insulin Human Regular ACHS SC 10/03/25 11:30 10/06/25 11:37 4 UNITS Dextrose 50 ml UD PRN IV 10/03/25 10:00 Brimonidine Tartrate 1 drop TID EACHEYE 10/03/25 14:00 10/06/25 05:19 1 DROP Gabapentin 800 mg TID PO 10/03/25 14:00 10/06/25 05:19 800 MG Cefazolin Sodium 50 ml @ 100 mls/hr Q8HR IV 10/03/25 22:00 10/06/25 05:19 100 MLS/HR Ketorolac Tromethamine 30 mg Q6HPRN PRN IV 10/04/25 13:45 10/09/25 13:44 10/05/25 12:41 30 MG Colchicine 0.6 mg Q12HR PO 10/04/25 22:00 10/06/25 09:19 0.6 MG Metoprolol Succinate 50 mg DAILY PO 10/06/25 10:00 10/06/25 06:47 50 MG Amiodarone HCl 250 ml @ 16.66 mls/ hr Q15H1M IV 10/06/25 13:45 laboratory and microbiology Laboratory Tests 10/06/25 05:22 Test 10/06/25 05:22 Range/Units Serum Glucose 135 H 74-106 mg/dL Problem List HX OF PELVIC/ GI MALIGNANCY S/P RESECTION CT OF ABD PELVIS PENDING NOW WITH RECURRENT PERICARDIAL EFFUSION PT HAS HAD 3 [PERICARDIOCENTESIS WITH APPARENT PERICARDIAL WINDOW BUT NOW WITH PERICARDIAL EFFUSION WITH TAMPONADE PHYSIOLOGY TOTAL OF 1500 CC HAS BEEN DRAINED REPEAT ECHO PENDING PT HAS NO INSIGHT TO HER DISEASE PROCESS MORBID OBESITY Assessment/Plan PT WITH PERICARDIAL DRAIN REPEAT ECHO ABX CX OF FLUID NEGATIVE GRAM STAIN NEGATIVE CELL COUNT NO CONSISTENT WITH MALIGNANCY BUT MORE CONSISTENT WITH REACTIVE / INFLAMMATORY ETIOLOGY CYTOLOGY PENDING CHEMISTRY PENDING CONSIDER COLCHICINE AND RILONACEPT( FDA APPROVED) OR ANAKINRA ( NOT APPROVED YET) EPISODE OF TACHYCARDIA STARTED TOPROL XL DC PERICARDIAL DRAIN ECHO IN AM SMALL LOCULATED POSTERIOR EFFUSION ECHO 09/1025 STILL WITH SMALL POSTERIOR EFFUSION STILL COLCHICINE HAS NOT BEEN STARTED Plan discussed with: Patient Critical Care Time(min): 35 COLLETTE RODRIGUEZ MD Oct 06, 2025 12:48
--- NOTE | 2025-10-06 13:18 | DVHSR ---
APPROVED REPORT EXAM: LIMITED Two-dimensional and M-mode echocardiogram with Doppler and color Doppler. Blood Pressure: 105/72 mmHg INDICATION Recurrent pericardial effusion RISK FACTORS Obesity: Height: 5'2", Weight: 249 Mitral Valve Mitral Mitral Stenosis E/A ratio 0.0 2D MVA cm2 Other Information Quality : Technically Limited Rhythm : Technically limited study due to limited repeat to eval effusion S/P pericardiocentesis. Conclusion STILL WITH SIGNIFICANT REAACUMULATION OF PERICARDIAL FLUID NO TAMPONADE
--- NOTE | 2025-10-06 14:50 | DVH ---
INDICATION: PARACENTESIS DRAIN/PLEURAL EFFUSION TECHNIQUE: Single frontal view of the chest was obtained COMPARISON: XY CHEST XRAY 1 VIEW on DOS: 10/05/25, XY CHEST PORTABLE on DOS: 10/03/25, CHEST TWO VIEWS ROUTINE on DOS: 06/15/21, XY CHEST XRAY 1 VIEW on DOS: 10/05/25 FINDINGS: Lines and Tubes: None Lungs: No focal consolidation. Pleura: No effusion. No pneumothorax. Cardiomediastinal contours: Stable cardiomegaly unchanged from 10/03/2025. Findings consistent with large pericardial effusion as seen on 2D echo 10/03/2025. Bones: No acute osseous abnormality. IMPRESSION: 1. Stable cardiomegaly consistent with a large pericardial effusion as noted on cardiac echo of 10/03/2025.
--- NOTE | 2025-10-06 15:03 | DVHPNRES ---
Progress Note Date Seen: Oct 06, 2025 Resident Creating Document: GIOVANNI HARPER RESIDENT Has the PT tested + for MRSA If YES, has PT been informed?: No Medical Necessity Reason Pt with a Central, PICC or Fol: No Subjective Review of Systems This is a 65-year-old female with a past medical history of HFpEF, COPD, diabetes mellitus, hyperlipidemia, hypertension, and long-standing recurrent pleural and pericardial effusions. She has undergone several pericardiocenteses since 2018 and ultimately required a pericardial window in 2023. Review of prior records shows that in 2019 she was found to have a large heterogeneous pelvic mass on MRI, described as a possible uterine or ovarian neoplasm with distortion of normal uterine architecture, though the patient reports that before the pandemic she underwent a hysterectomy with removal of all female organs at [facility]. She is a poor historian and has limited details about the malignancy or the extent of surgery. She now presents with three days of chest pain and progressive shortness of breath. The chest discomfort is vague and pressure-like and improves when she lies on her right side. She denies fever, cough, palpitations, or leg swelling. She does report orthopnea and fatigue. On arrival, her blood pressure was soft at 102 over 70. She appeared mildly dyspneic but was able to speak in full sentences. In the ED: An ECOSTAT was obtained, revealing a large pericardial effusion with echocardiographic signs concerning for tamponade physiology. She was urgently evaluated given her soft blood pressures and exam findings of muffled heart sounds and jugular venous distention along the left side of the neck. No peripheral edema was noted. The case was discussed with Dr. Mesa from cardiology. Given her symptoms, exam, and imaging, the recommendation is pericardiocentesis. PAST MEDICAL HISTORY HFpEF, COPD, diabetes mellitus, hyperlipidemia, hypertension, recurrent pleural effusions, recurrent pericardial effusions status post multiple pericardiocenteses and pericardial window (2023), history of pelvic mass with reported hysterectomy and bilateral removal of reproductive organs. PAST SURGICAL HISTORY Multiple pericardiocenteses, pericardial window in 2023, reported hysterectomy with removal of ovaries and uterus before the pandemic. 10/04/25: pericardiocentesis done drainage at OR 700cc, later at 7: 45 pm 950 cc serosanguineous drained, patient states that she is feeling better, BP stable, pending CT scan and ECHO post procedure. T 99.3 we will continue AB, UA also showed possible UTI. 10/06/25: colchicine given at 9 am, small drainage from drain, ECHO today STILL WITH SIGNIFICANT REAACUMULATION OF PERICARDIAL FLUID NO TAMPONADE, we will flush the catheter Hold on amiodarone drip: afib and tachycardia is due to drain continue BB, T 100.5 in the am, no wbc Objective vital signs Vital Sign Date Time Temp Pulse Resp B/P (MAP) Pulse Ox O2 Delivery O2 Flow Rate FiO2 10/06/25 14:27 98 14 100 10/06/25 12:30 112/71 (85) 10/06/25 10:00 Nasal Cannula* 2 28 10/06/25 07:06 98.9 Total Intake and Output 10/05/25 10/05/25 10/06/25 15:00 23:00 07:00 Intake Total 100 ml 350 ml Output Total 10 ml Balance 100 ml 340 ml medications Current Medications Medications Dose Ordered Sig/Yuli Route Start Time Stop Time Status Last Admin Dose Admin Albuterol 2.5 mg Q4HWA NEB 10/03/25 10:00 10/06/25 14:20 2.5 MG Ipratropium [place] 0.5 mg Q4HWA NEB 10/03/25 10:00 10/06/25 14:20 0.5 MG Atorvastatin Calcium 40 mg HS PO 10/03/25 22:00 10/05/25 21:09 40 MG Acetaminophen 650 mg Q6HP PRN PO 10/03/25 10:00 10/06/25 06:06 650 MG Ondansetron HCl 4 mg Q4HP PRN IV 10/03/25 10:00 Diagnostic Test (Pha) 1 strip ACHS 10/03/25 11:30 10/06/25 11:32 1 STRIP Insulin Human Regular ACHS SC 10/03/25 11:30 10/06/25 11:37 4 UNITS Dextrose 50 ml UD PRN IV 10/03/25 10:00 Brimonidine Tartrate 1 drop TID EACHEYE 10/03/25 14:00 10/06/25 05:19 1 DROP Gabapentin 800 mg TID PO 10/03/25 14:00 10/06/25 05:19 800 MG Cefazolin Sodium 50 ml @ 100 mls/hr Q8HR IV 10/03/25 22:00 10/06/25 05:19 100 MLS/HR Ketorolac Tromethamine 30 mg Q6HPRN PRN IV 10/04/25 13:45 10/09/25 13:44 10/05/25 12:41 30 MG Colchicine 0.6 mg Q12HR PO 10/04/25 22:00 10/06/25 09:19 0.6 MG Metoprolol Succinate 50 mg DAILY PO 10/06/25 10:00 10/06/25 06:47 50 MG Amiodarone HCl 250 ml @ 16.66 mls/ hr Q15H1M IV 10/06/25 13:45 Examination General: alert, mild distress HEENT: No scleral icterus. Neck: no JVD CV: regular rhythm, afib in the am, no murmurs appreciated. Lungs: Breath sounds diminished at bases but no wheezes or crackles. Abdomen: Soft, nondistended, nontender. Extremities: No edema. Neuro: Alert and oriented, nonfocal. Skin: Warm and dry. laboratory and microbiology Laboratory Tests 10/06/25 05:22 Test 10/06/25 05:22 Range/Units Serum Glucose 135 H 74-106 mg/dL Microbiology Date/Time Source Procedure Growth Status 10/04/25 11:42 Voided Urine Urine Culture - Final Complete 10/03/25 23:55 Nose MRSA Screen - Final Complete 10/03/25 16:50 Aspirate Gram Stain - Final Resulted 10/03/25 16:50 Aspirate Body Fluid Culture - Preliminary No growth Resulted 10/03/25 08:58 Blood Blood Culture - Preliminary NO GROWTH AFTER 72 HOURS OF INCUBATION. Resulted Problem List/Assessment/Plan Problem List/Assessment/Plan 1. Large pericardial effusion with tamponade . s/p pericardial tamponade drainage Etiology unclear; possible malignant, inflammatory, or post-surgical given history of pelvic mass and prior pericardial window. 10/04/25: pericardiocentesis done drainage at OR 700cc, later at 7: 45 pm 950 cc serosanguineous drained, patient states that she is feeling better, BP stable, pending CT scan and ECHO post procedure. 10/06/25: colchicine given at 9 am, small drainage from drain, ECHO today STILL WITH SIGNIFICANT REAACUMULATION OF PERICARDIAL FLUID NO TAMPONADE, we will flush the catheter Hold on amiodarone drip: afib and tachycardia is due to drain continue BB 2. UTI T 100.5 we will continue AB, UA also showed possible UTI, urine culture: mixed yovany, blood culture negative 3. HFpEF, chronic. Complicated by recurrent effusions. Hold diuretics for now due to soft blood pressures. Monitor volume status. 4. COPD. Currently without wheezing or exacerbation. 5. Diabetes mellitus. Check glucose, restart insulin sliding scale 6. Hypertension and hyperlipidemia. Hold antihypertensives due to low BP. Continue statin when stable. 7. History of pelvic mass and hysterectomy. Unknown malignancy status. CT scan of abdomen and pelvis with contrast, oncologic markers Case discussed with Dr Mesa Plan discussed with: Patient, Other (rn) My Orders My Orders Orders - GIOVANNI HARPER Procedure Category Date Status Time Chest Portable XY 10/06/25 Taken 13:21 Visit Coding Cardiology RES Date of Service: Oct 06, 2025 Billing Provider: COLLETTE RODRIGUEZ MD Cardiology Common Codes: [id number] CARE 30-74 MIN GIOVANNI HARPER RESIDENT Oct 06, 2025 15:03
[2025-10-07] VITALS (35 sets, daily range): BP systolic 103–135; BP diastolic 62–103; PULSE 82–102; RESP 11–31; TEMP 97.4–99.3; O2SAT 87–100
--- NOTE | 2025-10-07 04:40 | DVH ---
CHEST RADIOGRAPH Indication: pericardial effusion Technique: Single frontal view of the chest was obtained COMPARISON: XY CHEST PORTABLE on DOS: 10/06/25, XY CHEST XRAY 1 VIEW on DOS: 10/05/25, XY CHEST PORTABLE on DOS: 10/03/25, CHEST TWO VIEWS ROUTINE on DOS: 06/15/21 FINDINGS: Cardiac silhouette is enlarged. Mild prominence of the pulmonary vasculature. Dense atelectasis/ consolidation throughout the left mid and lower lung with probable underlying effusion. This appears grossly similar. IMPRESSION: Stable enlarged cardiac silhouette. Stable dense atelectasis/ consolidation throughout the left mid and lower lung.
[2025-10-07 05:44] LABS: Hematocrit 36.9 % (36.0-46.0); Hemoglobin 11.9 g/dL (12.2-16.2); Mean Corpuscular Hemoglobin 29.0 pg (28.0-32.0); Mean Corpuscular Volume 89.7 fL (80.0-100.0); Nucleated Red Blood Cells % 0.1 %
[2025-10-07 05:57] LABS: Alanine Aminotransferase 28 U/L (7-40); Albumin 4.0 g/dL (3.2-4.8); Alkaline Phosphatase 93 U/L (46-116); Anion Gap 9 (5-15); BUN/Creatinine Ratio 11.9 (10.0-20.0); Bilirubin, Total 0.3 mg/dL (0.2-1.0); Blood Urea Nitrogen 10 mg/dL (9-23); Calcium 10.4 mg/dL (8.7-10.4); Carbon Dioxide 30 mmol/L (20-31); Chloride 104 mmol/L (98-107); Potassium 4.8 mmol/L (3.5-5.1); Sodium 143 mmol/L (136-145); Total Protein 7.3 g/dL (5.7-8.2)
[2025-10-07 06:05] LABS: Glucose 126 mg/dL (74-106)
--- NOTE | 2025-10-07 12:19 | DVHSR ---
APPROVED REPORT EXAM: Two-dimensional and M-mode echocardiogram with Doppler and color Doppler. Blood Pressure: 134/80 mmHg INDICATION Follow up Pericardial Effusion RISK FACTORS Height: 5'2", Weight: 249 DIMENSIONS LVDd 3.6 (3.8-5.7cm) LA (2D) (1.9-4.0cm) Aortic Root (2.0-3.7cm) LVDs 2.5 (2.5-4.0cm) LA (MM) (1.9-4.0cm) Aortic Cusp Exc (1.5-2.0cm) EF (%) 58.0 (55-70%) Rt. Atrium (1.9-4.0cm) Asc. Aorta cm IVSd 1.1 (0.7-1.1cm) RV (D) (1.8-2.4cm) PWd 1.4 (0.7-1.1cm) Mitral Valve Mitral Mitral Stenosis E wave 0.60m/s MV Mean GR. mmHg E/A ratio 0.0 2D MVA cm2 Conclusion lvef 60% normal rv function moderate pericardial effusion adjacent to RV , large effusion that is circumferential which is mainly posterior and lateral adjacent to LV about 3.5 cm failed previous window 2023 no tamponade
--- NOTE | 2025-10-07 12:20 | DVHPN2 ---
Subjective The patient seen and examined at bedside. The patient still have pain today at the drain area. No fever or chills. Reviewed: Care Plan, H&P, Labs, Medications, Previous Orders, Radiology Changes from previous H/P or p: No Changes Cardiovascular: Chest Pain Respiratory: Shortness of breath Objective Vitals Vital Signs Date Time Temp Pulse Resp B/P (MAP) Pulse Ox O2 Delivery O2 Flow Rate FiO2 10/07/25 11:16 94 129/93 10/07/25 11:00 20 95 10/07/25 10:26 Nasal Cannula* 3 32 10/07/25 08:00 99.3 99.3 Intake/Output Intake and Output 10/07/25 07:00 Intake Total 500 ml Output Total 10 ml Balance 490 ml Intake Oral 350 ml IV Total 150 ml Other 10 ml # Voids 4 General Appearance: Alert, Oriented X3, Cooperative, No acute distress HEENT: Atraumatic, PERRLA, EOMI, Mucous membr. moist/pink Lungs: Clear to auscultation, Normal air movement Cardiovascular: Regular rate, Normal S1, Normal S2, No murmurs, Gallops, Rubs Abdomen: Normal bowel sounds, Soft, No tenderness Extremities: No edema Neuro: Cranial nerves 3-12 NL Psych/Mental Status: Mental status NL Medications Current Medications Medications Dose Ordered Sig/Yuli Route Start Time Stop Time Status Last Admin Dose Admin Albuterol 2.5 mg Q4HWA [facility] 10/03/25 10:00 10/07/25 10:26 2.5 MG Ipratropium [place] 0.5 mg Q4HWA [facility] 10/03/25 10:00 10/07/25 10:26 0.5 MG Atorvastatin Calcium 40 mg HS PO 10/03/25 22:00 10/06/25 21:29 40 MG Acetaminophen 650 mg Q6HP PRN PO 10/03/25 10:00 10/06/25 06:06 650 MG Ondansetron HCl 4 mg Q4HP PRN IV 10/03/25 10:00 Diagnostic Test (Pha) 1 strip ACHS 10/03/25 11:30 10/07/25 11:16 1 STRIP Insulin Human Regular ACHS SC 10/03/25 11:30 10/07/25 11:24 4 UNITS Dextrose 50 ml UD PRN IV 10/03/25 10:00 Brimonidine Tartrate 1 drop TID EACHEYE 10/03/25 14:00 10/07/25 05:17 1 DROP Gabapentin 800 mg TID PO 10/03/25 14:00 10/07/25 05:17 800 MG Cefazolin Sodium 50 ml @ 100 mls/hr Q8HR IV 10/03/25 22:00 10/07/25 05:17 100 MLS/HR Ketorolac Tromethamine 30 mg Q6HPRN PRN IV 10/04/25 13:45 10/09/25 13:44 10/05/25 12:41 30 MG Colchicine 0.6 mg Q12HR PO 10/04/25 22:00 10/07/25 11:15 0.6 MG Metoprolol Succinate 50 mg DAILY PO 10/06/25 10:00 10/07/25 11:16 50 MG Amiodarone HCl 250 ml @ 16.66 mls/ hr Q15H1M IV 10/06/25 13:45 Laboratory Results Laboratory Tests 10/07/25 05:06 Chemistry Test 10/07/25 05:06 Albumin 4.0 g/dL (3.2-4.8) Calcium Level 10.4 mg/dL (8.7-10.4) Total Protein 7.3 g/dL (5.7-8.2) LFT Test 10/07/25 05:06 Alanine Aminotransferase (ALT) 28 U/L (7-40) Alkaline Phosphatase 93 U/L (46-116) Aspartate Amino Transferase (AST) 30 U/L (13-40) Total Bilirubin 0.3 mg/dL (0.2-1.0) Urinalysis Test 10/03/25 11:42 Urine Color Yellow (Yellow) Urine Clarity Turbid (Clear) H Urine pH 5.5 (5.0-9.0) Urine Specific [place] 1.025 (1.001-1.035) Urine Protein Trace (Negative) H Urine Ketones Negative (Negative) Urine Blood Negative /uL (Negative) Urine Nitrite Negative (Negative) Urine Bilirubin Negative (Negative) Urine Urobilinogen 4 mg/dL (Negative) H Urine Leukocyte Esterase 3+ /uL (Negative) Urine RBC 3 /hpf (0 - 4) Urine Microscopic WBC 113 /HPF (0-5) H Urine Squamous Epithelial Cells Few /hpf (<5) Urine Bacteria Few /hpf (None Seen) H Urine Glucose Normal mg/dL (Normal) Microbiology Microbiology Date/Time Source Procedure Growth Status 10/04/25 11:42 Voided Urine Urine Culture - Final Complete 10/03/25 23:55 Nose MRSA Screen - Final Complete 10/03/25 16:50 Aspirate Gram Stain - Final Resulted 10/03/25 16:50 Aspirate Body Fluid Culture - Preliminary No growth Resulted 10/03/25 08:58 Blood Blood Culture - Preliminary NO GROWTH AFTER 72 HOURS OF INCUBATION. Resulted Labs and/or images reviewed: Labs reviewed by me Assessment/Plan Assessment/Plan Pericardial effusion s/p pericardiocentesis History of pelvic mass resection Recurrent pericardial effusion Morbid obesity COPD Hypertension Type 2 diabetes UTI Atrial fibrillation with RVR now sinus tachycardia Plan Continuing current management. Continuing With IV antibiotic cefazolin. Continuing with colchicine. Continuing with metoprolol. Per [employer] aircrewman's no need to start amiodarone yet. 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 This medical document was created using an electronic medical record system with [employer] direct computerized dictation system. Although this document has been carefully reviewed, there may still be some phonetic and typographical errors. These areas are purely typographical due to imperfections of the software programs, and do not reflect any compromise in the patient's medical care. Plan discussed with: Patient Date of Service: Oct 07, 2025 Billing Provider: LILY WELLS MD Common Visit Codes: [id number] INP/OBS CARE(HIGH) LILY WELLS MD Oct 07, 2025 12:20
--- NOTE | 2025-10-07 15:33 | DVHPN2 ---
Progress Note - Dictate Date Seen: Oct 07, 2025 Has the PT tested + for MRSA If YES, has PT been informed?: No Medical Necessity Reason Pt with a Central, PICC or Fol: No Subjective PT WITH HX OF PELVIC/ GI MALIGNANCY S/P RESECTION CT OF ABD PELVIS PENDING NOW WITH RECURRENT PERICARDIAL EFFUSION PT HAS HAD 3 [PERICARDIOCENTESIS WITH APPARENT PERICARDIAL WINDOW BUT NOW WITH PERICARDIAL EFFUSION WITH TAMPONADE PHYSIOLOGY TOTAL OF 1500 CC HAS BEEN DRAINED REPEAT ECHO PENDING PT HAS NO INSIGHT TO HER DISEASE PROCESS MORBID OBESITY vital signs Vital Sign Date Time Temp Pulse Resp B/P (MAP) Pulse Ox O2 Delivery O2 Flow Rate FiO2 10/07/25 14:00 84 12 100 10/07/25 13:54 Nasal Cannula 3.0 10/07/25 13:54 32 10/07/25 11:16 129/93 10/07/25 08:00 99.3 99.3 Total Intake and Output 10/06/25 10/06/25 10/07/25 15:00 23:00 07:00 Intake Total 100 ml 400 ml Output Total 10 ml Balance 100 ml 390 ml medications Current Medications Medications Dose Ordered Sig/Yuli Route Start Time Stop Time Status Last Admin Dose Admin Albuterol 2.5 mg Q4HWA NEB 10/03/25 10:00 10/07/25 13:54 2.5 MG Ipratropium [place] 0.5 mg Q4HWA NEB 10/03/25 10:00 10/07/25 13:54 0.5 MG Atorvastatin Calcium 40 mg HS PO 10/03/25 22:00 10/06/25 21:29 40 MG Acetaminophen 650 mg Q6HP PRN PO 10/03/25 10:00 10/06/25 06:06 650 MG Ondansetron HCl 4 mg Q4HP PRN IV 10/03/25 10:00 Diagnostic Test (Pha) 1 strip ACHS 10/03/25 11:30 10/07/25 11:16 1 STRIP Insulin Human Regular ACHS SC 10/03/25 11:30 10/07/25 11:24 4 UNITS Dextrose 50 ml UD PRN IV 10/03/25 10:00 Brimonidine Tartrate 1 drop TID EACHEYE 10/03/25 14:00 10/07/25 15:25 1 DROP Gabapentin 800 mg TID PO 10/03/25 14:00 10/07/25 15:26 800 MG Cefazolin Sodium 50 ml @ 100 mls/hr Q8HR IV 10/03/25 22:00 10/07/25 15:25 100 MLS/HR Ketorolac Tromethamine 30 mg Q6HPRN PRN IV 10/04/25 13:45 10/09/25 13:44 10/05/25 12:41 30 MG Colchicine 0.6 mg Q12HR PO 10/04/25 22:00 10/07/25 11:15 0.6 MG Metoprolol Succinate 50 mg DAILY PO 10/06/25 10:00 10/07/25 11:16 50 MG Amiodarone HCl 250 ml @ 16.66 mls/ hr Q15H1M IV 10/06/25 13:45 laboratory and microbiology Laboratory Tests 10/07/25 05:06 Test 10/07/25 05:06 Range/Units Serum Glucose 126 H 74-106 mg/dL Problem List HX OF PELVIC/ GI MALIGNANCY S/P RESECTION CT OF ABD PELVIS PENDING NOW WITH RECURRENT PERICARDIAL EFFUSION PT HAS HAD 3 [PERICARDIOCENTESIS WITH APPARENT PERICARDIAL WINDOW BUT NOW WITH PERICARDIAL EFFUSION WITH TAMPONADE PHYSIOLOGY TOTAL OF 1500 CC HAS BEEN DRAINED REPEAT ECHO PENDING PT HAS NO INSIGHT TO HER DISEASE PROCESS MORBID OBESITY Assessment/Plan PT WITH PERICARDIAL DRAIN REPEAT ECHO ABX CX OF FLUID NEGATIVE GRAM STAIN NEGATIVE CELL COUNT NO CONSISTENT WITH MALIGNANCY BUT MORE CONSISTENT WITH REACTIVE / INFLAMMATORY ETIOLOGY CYTOLOGY PENDING CHEMISTRY PENDING CONSIDER COLCHICINE AND RILONACEPT( FDA APPROVED) OR ANAKINRA ( NOT APPROVED YET) EPISODE OF TACHYCARDIA STARTED TOPROL XL DC PERICARDIAL DRAIN ECHO IN AM SMALL LOCULATED POSTERIOR EFFUSION ECHO 09/1025 STILL WITH SMALL POSTERIOR EFFUSION STILL COLCHICINE HAS NOT BEEN STARTED reposition catheter tomorrow Plan discussed with: Patient COLLETTE RODRIGUEZ MD Oct 07, 2025 15:33
--- NOTE | 2025-10-07 15:35 | DVHPNRES ---
Progress Note Date Seen: Oct 07, 2025 Resident Creating Document: GIOVANNI HARPER RESIDENT Has the PT tested + for MRSA If YES, has PT been informed?: No Medical Necessity Reason Pt with a Central, PICC or Fol: No Subjective Review of Systems This is a 65-year-old female with a past medical history of HFpEF, COPD, diabetes mellitus, hyperlipidemia, hypertension, and long-standing recurrent pleural and pericardial effusions. She has undergone several pericardiocenteses since 2018 and ultimately required a pericardial window in 2023. Review of prior records shows that in 2019 she was found to have a large heterogeneous pelvic mass on MRI, described as a possible uterine or ovarian neoplasm with distortion of normal uterine architecture, though the patient reports that before the pandemic she underwent a hysterectomy with removal of all female organs at [facility]. She is a poor historian and has limited details about the malignancy or the extent of surgery. She now presents with three days of chest pain and progressive shortness of breath. The chest discomfort is vague and pressure-like and improves when she lies on her right side. She denies fever, cough, palpitations, or leg swelling. She does report orthopnea and fatigue. On arrival, her blood pressure was soft at 102 over 70. She appeared mildly dyspneic but was able to speak in full sentences. In the ED: An ECOSTAT was obtained, revealing a large pericardial effusion with echocardiographic signs concerning for tamponade physiology. She was urgently evaluated given her soft blood pressures and exam findings of muffled heart sounds and jugular venous distention along the left side of the neck. No peripheral edema was noted. The case was discussed with Dr. Mesa from cardiology. Given her symptoms, exam, and imaging, the recommendation is pericardiocentesis. PAST MEDICAL HISTORY HFpEF, COPD, diabetes mellitus, hyperlipidemia, hypertension, recurrent pleural effusions, recurrent pericardial effusions status post multiple pericardiocenteses and pericardial window (2023), history of pelvic mass with reported hysterectomy and bilateral removal of reproductive organs. PAST SURGICAL HISTORY Multiple pericardiocenteses, pericardial window in 2023, reported hysterectomy with removal of ovaries and uterus before the pandemic. 10/04/25: pericardiocentesis done drainage at OR 700cc, later at 7: 45 pm 950 cc serosanguineous drained, patient states that she is feeling better, BP stable, pending CT scan and ECHO post procedure. T 99.3 we will continue AB, UA also showed possible UTI. 10/06/25: colchicine given at 9 am, small drainage from drain, ECHO today STILL WITH SIGNIFICANT REAACUMULATION OF PERICARDIAL FLUID NO TAMPONADE, we will flush the catheter Hold on amiodarone drip: afib and tachycardia is due to drain continue BB, T 100.5 in the am, no wbc 10/07/25: echo today: moderate pericardial effusion adjacent to RV , large effusion that is circumferential which is mainly posterior and lateral adjacent to LV about 3.5 cm, no tamponade, patient will have tomorrow pericardiocentesis again Objective vital signs Vital Sign Date Time Temp Pulse Resp B/P (MAP) Pulse Ox O2 Delivery O2 Flow Rate FiO2 10/07/25 14:00 84 12 100 10/07/25 13:54 Nasal Cannula 3.0 10/07/25 13:54 32 10/07/25 11:16 129/93 10/07/25 08:00 99.3 99.3 Total Intake and Output 10/06/25 10/06/25 10/07/25 15:00 23:00 07:00 Intake Total 100 ml 400 ml Output Total 10 ml Balance 100 ml 390 ml medications Current Medications Medications Dose Ordered Sig/Yuli Route Start Time Stop Time Status Last Admin Dose Admin Albuterol 2.5 mg Q4HWA [facility] 10/03/25 10:00 10/07/25 13:54 2.5 MG Ipratropium [place] 0.5 mg Q4HWA NEB 10/03/25 10:00 10/07/25 13:54 0.5 MG Atorvastatin Calcium 40 mg HS PO 10/03/25 22:00 10/06/25 21:29 40 MG Acetaminophen 650 mg Q6HP PRN PO 10/03/25 10:00 10/06/25 06:06 650 MG Ondansetron HCl 4 mg Q4HP PRN IV 10/03/25 10:00 Diagnostic Test (Pha) 1 strip ACHS 10/03/25 11:30 10/07/25 11:16 1 STRIP Insulin Human Regular ACHS SC 10/03/25 11:30 10/07/25 11:24 4 UNITS Dextrose 50 ml UD PRN IV 10/03/25 10:00 Brimonidine Tartrate 1 drop TID EACHEYE 10/03/25 14:00 10/07/25 15:25 1 DROP Gabapentin 800 mg TID PO 10/03/25 14:00 10/07/25 15:26 800 MG Cefazolin Sodium 50 ml @ 100 mls/hr Q8HR IV 10/03/25 22:00 10/07/25 15:25 100 MLS/HR Ketorolac Tromethamine 30 mg Q6HPRN PRN IV 10/04/25 13:45 10/09/25 13:44 10/05/25 12:41 30 MG Colchicine 0.6 mg Q12HR PO 10/04/25 22:00 10/07/25 11:15 0.6 MG Metoprolol Succinate 50 mg DAILY PO 10/06/25 10:00 10/07/25 11:16 50 MG Amiodarone HCl 250 ml @ 16.66 mls/ hr Q15H1M IV 10/06/25 13:45 Examination NECK: Supple, with no masses. CV: RRR, no m/r/g. LUNGS: Lungs clear to auscultation without rhonchi, wheezes, rales ABD: Soft, ND/NT. No evidence of fluid wave. No pulsatile masses on exam, rebound tenderness : N/A SKIN: Warm, well perfused. No skin rashes or abnormal lesions. MSK: No deformities or signs of scoliosis. Normal gait. EXT: No clubbing, cyanosis, or edema. laboratory and microbiology Laboratory Tests 10/07/25 05:06 Test 10/07/25 05:06 Range/Units Serum Glucose 126 H 74-106 mg/dL Microbiology Date/Time Source Procedure Growth Status 10/04/25 11:42 Voided Urine Urine Culture - Final Complete 10/03/25 23:55 Nose MRSA Screen - Final Complete 10/03/25 16:50 Aspirate Gram Stain - Final Resulted 10/03/25 16:50 Aspirate Body Fluid Culture - Preliminary No growth Resulted 10/03/25 08:58 Blood Blood Culture - Preliminary NO GROWTH AFTER 72 HOURS OF INCUBATION. Resulted Problem List/Assessment/Plan Problem List/Assessment/Plan 1. Large pericardial effusion with tamponade . s/p pericardial tamponade drainage Etiology unclear; possible malignant, inflammatory, or post-surgical given history of pelvic mass and prior pericardial window. 10/04/25: pericardiocentesis done drainage at OR 700cc, later at 7: 45 pm 950 cc serosanguineous drained, patient states that she is feeling better, BP stable, pending CT scan and ECHO post procedure. 10/06/25: colchicine given at 9 am, small drainage from drain, ECHO today STILL WITH SIGNIFICANT REAACUMULATION OF PERICARDIAL FLUID NO TAMPONADE, we will flush the catheter Hold on amiodarone drip: afib and tachycardia is due to drain continue BB 10/07/25: echo today: moderate pericardial effusion adjacent to RV , large effusion that is circumferential which is mainly posterior and lateral adjacent to LV about 3.5 cm, no tamponade, patient will have tomorrow pericardiocentesis again 2. UTI T 100.5 we will continue AB, UA also showed possible UTI, urine culture: mixed yovany, blood culture negative 3. HFpEF, chronic. Complicated by recurrent effusions. Hold diuretics for now due to soft blood pressures. Monitor volume status. 4. COPD. Currently without wheezing or exacerbation. 5. Diabetes mellitus. insulin sliding scale 6. Hypertension and hyperlipidemia. Hold antihypertensives due to low BP. Continue statin when stable. 7. History of pelvic mass and hysterectomy. Unknown malignancy status. CT scan of abdomen and pelvis with contrast, oncologic markers: negative ct scan is negative , ca 125 was very positive in 2019, now is negative Case discussed with Dr Mesa Plan discussed with: Patient, Other (rn) My Orders My Orders Orders - GIOVANNI HARPER RESIDENT Procedure Category Date Status Time Echo 2d Mode Cardiac US 10/07/25 Resulted DOP 04:00 Chest Xray 1 View XY 10/07/25 Resulted 04:00 Npo Except For [facility] 10/08/25 Verified Medications 00:01 Obtain Consent For: ORDERS 10/07/25 Verified 15:26 Hold Enoxaparin Day [facility] 10/08/25 Verified Of Procedu 00:01 D/C Tlc [facility] 10/07/25 Verified 15:26 Shave Both Groins [facility] 10/07/25 Verified 15:26 Comprehensive LAB 10/09/25 Verified Metabolic Panel 04:00 Npo (Nothing By DIET 10/08/25 Verified Mouth) Diet Breakfast Obtain Consent For [facility] 10/07/25 Verified Anesthesia 15:26 Visit Coding Cardiology RES Date of Service: Oct 07, 2025 Billing Provider: COLLETTE RODRIGUEZ MD Cardiology Common Codes: [id number] CARE 30-74 MIN GIOVANNI HARPER RESIDENT Oct 07, 2025 15:35
[2025-10-08] VITALS (47 sets, daily range): BP systolic 108–161; BP diastolic 47–107; PULSE 70–97; RESP 16–26; TEMP 98.2–99.4; O2SAT 89–100
--- NOTE | 2025-10-08 05:04 | DVH ---
CHEST RADIOGRAPH Indication: pericardial effusion Technique: Single frontal view of the chest was obtained COMPARISON: XY CHEST XRAY 1 VIEW on DOS: 10/07/25, XY CHEST PORTABLE on DOS: 10/06/25, XY CHEST XRAY 1 VIEW on DOS: 10/05/25, XY CHEST PORTABLE on DOS: 10/03/25, CHEST TWO VIEWS ROUTINE on DOS: 06/15/21 FINDINGS: Lines and Tubes: None Lungs: Slightly improved aeration of the lungs. Mild diffuse congestion. Pleura: No effusion.No pneumothorax. Cardiomediastinal contours: Unchanged cardiomegaly. Bones: Unremarkable IMPRESSION: Slightly improved aeration of the lungs.
[2025-10-08 05:54] LABS: Hematocrit 36.9 % (36.0-46.0); Hemoglobin 11.7 g/dL (12.2-16.2); Mean Corpuscular Hemoglobin 28.3 pg (28.0-32.0); Mean Corpuscular Volume 89.0 fL (80.0-100.0); Nucleated Red Blood Cells % 0.0 %
[2025-10-08 06:01] LABS: INR 1.05 (0.9-1.15); Partial Thromboplastin Time 30.1 SEC (24.5-34.5); Prothrombin Time 11.1 sec (9.3-11.8)
[2025-10-08 06:06] LABS: Alanine Aminotransferase 33 U/L (7-40); Albumin 3.9 g/dL (3.2-4.8); Alkaline Phosphatase 87 U/L (46-116); Anion Gap 9 (5-15); BUN/Creatinine Ratio 15.3 (10.0-20.0); Blood Urea Nitrogen 13 mg/dL (9-23); Calcium 10.1 mg/dL (8.7-10.4); Carbon Dioxide 28 mmol/L (20-31); Chloride 104 mmol/L (98-107); Potassium 4.8 mmol/L (3.5-5.1); Sodium 141 mmol/L (136-145); Total Protein 7.1 g/dL (5.7-8.2)
[2025-10-08 06:08] LABS: Bilirubin, Total 0.3 mg/dL (0.2-1.0)
[2025-10-08 06:10] LABS: Glucose 145 mg/dL (74-106)
--- NOTE | 2025-10-08 11:59 | DVHPN2 ---
Subjective The patient seen and examined at bedside. The patient still have pain today at the drain area. No fever or chills. The patient is supposed to have another pericardiocentesis and pericardial window today Reviewed: Care Plan, H&P, Labs, Medications, Previous Orders, Radiology Changes from previous H/P or p: No Changes Cardiovascular: Chest Pain Respiratory: Shortness of breath Objective Vitals Vital Signs Date Time Temp Pulse Resp B/P (MAP) Pulse Ox O2 Delivery O2 Flow Rate FiO2 10/08/25 10:21 96 16 98 10/08/25 10:14 Nasal Cannula* 2 28 10/08/25 10:00 124/77 (93) 10/08/25 08:00 98.9 98.9 Intake/Output Intake and Output 10/08/25 07:00 Intake Total 500 ml Output Total 0 ml Balance 500 ml Intake Oral 300 ml IV Total 200 ml Other 0 ml # Voids 5 General Appearance: Alert, Oriented X3, Cooperative, No acute distress HEENT: Atraumatic, PERRLA, EOMI, Mucous membr. moist/pink Lungs: Clear to auscultation, Normal air movement Cardiovascular: Regular rate, Normal S1, Normal S2, No murmurs, Gallops, Rubs Abdomen: Normal bowel sounds, Soft, No tenderness Extremities: No edema Neuro: Cranial nerves 3-12 NL Psych/Mental Status: Mental status NL Medications Current Medications Medications Dose Ordered Sig/Yuli Route Start Time Stop Time Status Last Admin Dose Admin Albuterol 2.5 mg Q4HWA [facility] 10/03/25 10:00 10/08/25 10:11 2.5 MG Ipratropium [place] 0.5 mg Q4HWA NEB 10/03/25 10:00 10/08/25 10:11 0.5 MG Atorvastatin Calcium 40 mg HS PO 10/03/25 22:00 10/07/25 21:12 40 MG Acetaminophen 650 mg Q6HP PRN PO 10/03/25 10:00 10/08/25 04:38 650 MG Ondansetron HCl 4 mg Q4HP PRN IV 10/03/25 10:00 Diagnostic Test (Pha) 1 strip ACHS 10/03/25 11:30 10/08/25 11:56 1 STRIP Insulin Human Regular ACHS SC 10/03/25 11:30 10/07/25 22:02 4 UNITS Dextrose 50 ml UD PRN IV 10/03/25 10:00 Brimonidine Tartrate 1 drop TID EACHEYE 10/03/25 14:00 10/08/25 05:13 1 DROP Gabapentin 800 mg TID PO 10/03/25 14:00 10/08/25 05:12 800 MG Cefazolin Sodium 50 ml @ 100 mls/hr Q8HR IV 10/03/25 22:00 10/08/25 05:12 100 MLS/HR Ketorolac Tromethamine 30 mg Q6HPRN PRN IV 10/04/25 13:45 10/09/25 13:44 10/05/25 12:41 30 MG Colchicine 0.6 mg Q12HR PO 10/04/25 22:00 10/07/25 21:11 0.6 MG Metoprolol Succinate 50 mg DAILY PO 10/06/25 10:00 10/07/25 11:16 50 MG Laboratory Results Laboratory Tests 10/08/25 05:18 Chemistry Test 10/08/25 05:18 Albumin 3.9 g/dL (3.2-4.8) Calcium Level 10.1 mg/dL (8.7-10.4) Total Protein 7.1 g/dL (5.7-8.2) Coagulation Test 10/08/25 05:18 Prothrombin Time 11.1 sec (9.3-11.8) Prothrombin Time INR 1.05 (0.9-1.15) Activated Partial Thromboplast Time 30.1 SEC (24.5-34.5) LFT Test 10/08/25 05:18 Alanine Aminotransferase (ALT) 33 U/L (7-40) Alkaline Phosphatase 87 U/L (46-116) Aspartate Amino Transferase (AST) 43 U/L (13-40) H Total Bilirubin 0.3 mg/dL (0.2-1.0) Urinalysis Test 10/03/25 11:42 Urine Color Yellow (Yellow) Urine Clarity Turbid (Clear) H Urine pH 5.5 (5.0-9.0) Urine Specific [place] 1.025 (1.001-1.035) Urine Protein Trace (Negative) H Urine Ketones Negative (Negative) Urine Blood Negative /uL (Negative) Urine Nitrite Negative (Negative) Urine Bilirubin Negative (Negative) Urine Urobilinogen 4 mg/dL (Negative) H Urine Leukocyte Esterase 3+ /uL (Negative) Urine RBC 3 /hpf (0 - 4) Urine Microscopic WBC 113 /HPF (0-5) H Urine Squamous Epithelial Cells Few /hpf (<5) Urine Bacteria Few /hpf (None Seen) H Urine Glucose Normal mg/dL (Normal) Microbiology Microbiology Date/Time Source Procedure Growth Status 10/06/25 15:34 Blood Blood Culture - Preliminary NO GROWTH AFTER 24 HOURS OF INCUBATION. Resulted 10/04/25 11:42 Voided Urine Urine Culture - Final Complete 10/03/25 23:55 Nose MRSA Screen - Final Complete 10/03/25 16:50 Aspirate Gram Stain - Final Resulted 10/03/25 16:50 Aspirate Body Fluid Culture - Preliminary No growth Resulted Labs and/or images reviewed: Labs reviewed by me Assessment/Plan Assessment/Plan Pericardial effusion s/p pericardiocentesis History of pelvic mass resection Recurrent pericardial effusion Morbid obesity COPD Hypertension Type 2 diabetes UTI Atrial fibrillation with RVR now sinus tachycardia Plan Continuing current management. Continuing With IV antibiotic cefazolin. Continuing with colchicine. Continuing with metoprolol. Per voip technician's no need to start amiodarone yet. CA 19 9 and CEA is normal The drainage was removed yesterday. Now waiting for another pericardiocentesis by voip technician This medical document was created using an electronic medical record system with [employer] direct computerized dictation system. Although this document has been carefully reviewed, there may still be some phonetic and typographical errors. These areas are purely typographical due to imperfections of the software programs, and do not reflect any compromise in the patient's medical care. Plan discussed with: Patient Date of Service: Oct 08, 2025 Billing Provider: LILY WELLS MD Common Visit Codes: [id number] INP/OBS CARE(HIGH) LILY WELLS MD Oct 08, 2025 11:59
[2025-10-08] MEDS: fentaNYL CITRATE 100 MCG/2 ML VL ONE (14:17)
[2025-10-08] MEDS: MIDAZOLAM HCL 2MG/2ML 2ml VIAL (1mg/ml) ONE (14:17)
[2025-10-08] MEDS: LIDOCAINE 2%HCL (LOCAL ANESTH.) INJ 20ML MDV ONE ×2 (14:18→14:31)
--- NOTE | 2025-10-08 15:13 | DVHPN2 ---
Progress Note - Dictate Date Seen: Oct 08, 2025 Has the PT tested + for MRSA If YES, has PT been informed?: No Medical Necessity Reason Pt with a Central, PICC or Fol: No Subjective PT WITH HX OF PELVIC/ GI MALIGNANCY S/P RESECTION CT OF ABD PELVIS PENDING NOW WITH RECURRENT PERICARDIAL EFFUSION PT HAS HAD 3 [PERICARDIOCENTESIS WITH APPARENT PERICARDIAL WINDOW BUT NOW WITH PERICARDIAL EFFUSION WITH TAMPONADE PHYSIOLOGY TOTAL OF 1500 CC HAS BEEN DRAINED REPEAT ECHO PENDING PT HAS NO INSIGHT TO HER DISEASE PROCESS MORBID OBESITY vital signs Vital Sign Date Time Temp Pulse Resp B/P (MAP) Pulse Ox O2 Delivery O2 Flow Rate FiO2 10/08/25 12:00 98.8 91 18 130/91 (104) 97 98.8 10/08/25 10:14 Nasal Cannula* 2 28 Total Intake and Output 10/07/25 10/07/25 10/08/25 15:00 23:00 07:00 Intake Total 150 ml 350 ml Output Total 0 ml Balance 150 ml 350 ml medications Current Medications Medications Dose Ordered Sig/Yuli Route Start Time Stop Time Status Last Admin Dose Admin Atorvastatin Calcium 40 mg HS PO 10/03/25 22:00 10/07/25 21:12 40 MG Acetaminophen 650 mg Q6HP PRN PO 10/03/25 10:00 10/08/25 04:38 650 MG Ondansetron HCl 4 mg Q4HP PRN IV 10/03/25 10:00 Diagnostic Test (Pha) 1 strip ACHS 10/03/25 11:30 10/08/25 11:56 1 STRIP Insulin Human Regular ACHS SC 10/03/25 11:30 10/07/25 22:02 4 UNITS Dextrose 50 ml UD PRN IV 10/03/25 10:00 Brimonidine Tartrate 1 drop TID EACHEYE 10/03/25 14:00 10/08/25 05:13 1 DROP Gabapentin 800 mg TID PO 10/03/25 14:00 10/08/25 05:12 800 MG Ketorolac Tromethamine 30 mg Q6HPRN PRN IV 10/04/25 13:45 10/09/25 13:44 10/08/25 12:41 30 MG Colchicine 0.6 mg Q12HR PO 10/04/25 22:00 10/07/25 21:11 0.6 MG Metoprolol Succinate 50 mg DAILY PO 10/06/25 10:00 10/07/25 11:16 50 MG Levofloxacin/ Dextrose 100 ml @ 100 mls/hr DAILY IV 10/08/25 15:00 UNV laboratory and microbiology Laboratory Tests 10/08/25 05:18 Test 10/08/25 05:18 Range/Units Serum Glucose 145 H 74-106 mg/dL Problem List HX OF PELVIC/ GI MALIGNANCY S/P RESECTION CT OF ABD PELVIS PENDING NOW WITH RECURRENT PERICARDIAL EFFUSION PT HAS HAD 3 [PERICARDIOCENTESIS WITH APPARENT PERICARDIAL WINDOW BUT NOW WITH PERICARDIAL EFFUSION WITH TAMPONADE PHYSIOLOGY TOTAL OF 1500 CC HAS BEEN DRAINED REPEAT ECHO PENDING PT HAS NO INSIGHT TO HER DISEASE PROCESS MORBID OBESITY Assessment/Plan PT WITH PERICARDIAL DRAIN REPEAT ECHO ABX CX OF FLUID NEGATIVE GRAM STAIN NEGATIVE CELL COUNT NO CONSISTENT WITH MALIGNANCY BUT MORE CONSISTENT WITH REACTIVE / INFLAMMATORY ETIOLOGY CYTOLOGY PENDING CHEMISTRY PENDING CONSIDER COLCHICINE AND RILONACEPT( FDA APPROVED) OR ANAKINRA ( NOT APPROVED YET) EPISODE OF TACHYCARDIA STARTED TOPROL XL DC PERICARDIAL DRAIN ECHO IN AM SMALL LOCULATED POSTERIOR EFFUSION ECHO 09/1025 STILL WITH SMALL POSTERIOR EFFUSION STILL COLCHICINE HAS NOT BEEN STARTED reposition catheter tomorrow HAD TO REINSERT PERICARDIOCENTESIS BALLOON DILATION FOR PERICARDIAL WINDOW START INTERLEUKIN 1 ANTAGONIST ARCALYST / PILONECEPT 160 MG SUBCQ BID X 2 DOSES GIVEN WEEKLY Dietary Evaluation Review Comments: Nutrition Recommendation: 1) advance to CCHo 60gm + cardiac diet as medically feasible 2) Monitor NPO status, lab values, weight trend, and I/O Expected Outcomes/Goals: Intake to meet >75% estimated needs Lab values to improve FU 2-3 days Plan discussed with: Patient Critical Care Time(min): 35 COLLETTE RODRIGUEZ MD Oct 08, 2025 15:13
--- NOTE | 2025-10-08 15:18 | DVHOP2 ---
Operative Report PERICARDIOCENTESIS 10/08/25 PT INITIAL PERICARDIAL CATHETER OCCLUDED AND DISPLACED NOW FOR REPEAT PERICARDIOCENTESIS PT ALSO UNDERWENT BALLOON DILATATION OF PERICARDIUM FRO PERICARDIAL WINDOW WITH 10 MM AND 14 MM NON COMPLIANT BALLOON OVER AMPLATZ WIRE The patient with a remote history of cancer of the pelvis. It is not clear whether it is ovarian, uterine, or even colonic at this time. The patient apparently about 5 years ago had complete resection of the abdomen and was told that she may have been cancer-free. It was surgically resected. But it is not clear. We will do a CA 19-9 and CA 125. The patient should have a CT of the abdomen and pelvis. In fact, the patient should also have a PET and CT as well as an outpatient. In the meantime, the patient presented with severe shortness of breath and chest pain. It appears as though the patient has significant pericardial effusion. This is the third time that she had had a pericardial effusion and she has had pericardiocentesis on several occasions followed by pericardial window. Now we will attempt another pericardiocentesis. PROCEDURE PERFORMED: Conscious sedation to pericardiocentesis, pericardial fluid. The patient in tamponade physiology. Chronic effusion. Needs to rule out for malignancy, rule out for inflammatory process as well. DESCRIPTION OF PROCEDURE: The patient was prepped and draped in a sterile condition. 1% Xylocaine was used to anesthetize the subxiphoid region. Then, using a 10-blade, linear incision was used. Using blunt dissection and electrocautery, the pocket was then dissected out. Using a trocar, we able to make a track. Then, using a pericardiocentesis needle, it was appropriately positioned in the apex of the pericardium through the pericardial wall under both fluoroscopy guidance as well as ultrasound guidance. Agitated saline was injected to visualize the proper placement of the pericardial needle. Following that, using a stiff wire, a Supra Core wire was placed into the pericardial space. A 9-Maltese dilator was used to dilate the tract. Following that, a pericardiocentesis catheter was placed in the pericardium. We were able to extract approximately 700 mL of serous fluid. It will be sent for cell count, chemistry, as well as culture and cytology. In the meantime, we will leave the catheter in for continued drain. Reimaging with echo will be done in 24 hours. COLLETTE RODRIGUEZ MD Oct 08, 2025 15:18
--- NOTE | 2025-10-08 15:58 | DVHPNRES ---
Progress Note Date Seen: Oct 08, 2025 Resident Creating Document: GIOVANNI HARPER RESIDENT Has the PT tested + for MRSA If YES, has PT been informed?: No Medical Necessity Reason Pt with a Central, PICC or Fol: No Subjective Review of Systems This is a 65-year-old female with a past medical history of HFpEF, COPD, diabetes mellitus, hyperlipidemia, hypertension, and long-standing recurrent pleural and pericardial effusions. She has undergone several pericardiocenteses since 2018 and ultimately required a pericardial window in 2023. Review of prior records shows that in 2019 she was found to have a large heterogeneous pelvic mass on MRI, described as a possible uterine or ovarian neoplasm with distortion of normal uterine architecture, though the patient reports that before the pandemic she underwent a hysterectomy with removal of all female organs at [facility]. She is a poor historian and has limited details about the malignancy or the extent of surgery. She now presents with three days of chest pain and progressive shortness of breath. The chest discomfort is vague and pressure-like and improves when she lies on her right side. She denies fever, cough, palpitations, or leg swelling. She does report orthopnea and fatigue. On arrival, her blood pressure was soft at 102 over 70. She appeared mildly dyspneic but was able to speak in full sentences. In the ED: An ECOSTAT was obtained, revealing a large pericardial effusion with echocardiographic signs concerning for tamponade physiology. She was urgently evaluated given her soft blood pressures and exam findings of muffled heart sounds and jugular venous distention along the left side of the neck. No peripheral edema was noted. The case was discussed with Dr. Mesa from cardiology. Given her symptoms, exam, and imaging, the recommendation is pericardiocentesis. PAST MEDICAL HISTORY HFpEF, COPD, diabetes mellitus, hyperlipidemia, hypertension, recurrent pleural effusions, recurrent pericardial effusions status post multiple pericardiocenteses and pericardial window (2023), history of pelvic mass with reported hysterectomy and bilateral removal of reproductive organs. PAST SURGICAL HISTORY Multiple pericardiocenteses, pericardial window in 2023, reported hysterectomy with removal of ovaries and uterus before the pandemic. 10/04/25: pericardiocentesis done drainage at OR 700cc, later at 7: 45 pm 950 cc serosanguineous drained, patient states that she is feeling better, BP stable, pending CT scan and ECHO post procedure. T 99.3 we will continue AB, UA also showed possible UTI. 10/06/25: colchicine given at 9 am, small drainage from drain, ECHO today STILL WITH SIGNIFICANT REAACUMULATION OF PERICARDIAL FLUID NO TAMPONADE, we will flush the catheter Hold on amiodarone drip: afib and tachycardia is due to drain continue BB, T 100.5 in the am, no wbc 10/07/25: echo today: moderate pericardial effusion adjacent to RV , large effusion that is circumferential which is mainly posterior and lateral adjacent to LV about 3.5 cm, no tamponade, patient will have tomorrow pericardiocentesis again 10/08/25: pericardial drain pulled out 11 pm yesterday, no signs of tamponade, patient was taken to medical laboratory manager for new pericardiocentesis and pericardial window, procedure without complications, upgrade to ICU, start levaquin IV, start rilonacept anti-IL1 due to recurrent pericarditis Objective vital signs Vital Sign Date Time Temp Pulse Resp B/P (MAP) Pulse Ox O2 Delivery O2 Flow Rate FiO2 10/08/25 12:00 98.8 91 18 130/91 (104) 97 98.8 10/08/25 10:14 Nasal Cannula* 2 28 Total Intake and Output 10/07/25 10/07/25 10/08/25 15:00 23:00 07:00 Intake Total 150 ml 350 ml Output Total 0 ml Balance 150 ml 350 ml medications Current Medications Medications Dose Ordered Sig/Yuli Route Start Time Stop Time Status Last Admin Dose Admin Atorvastatin Calcium 40 mg HS PO 10/03/25 22:00 10/07/25 21:12 40 MG Acetaminophen 650 mg Q6HP PRN PO 10/03/25 10:00 10/08/25 04:38 650 MG Ondansetron HCl 4 mg Q4HP PRN IV 10/03/25 10:00 Diagnostic Test (Pha) 1 strip ACHS 10/03/25 11:30 10/08/25 11:56 1 STRIP Insulin Human Regular ACHS SC 10/03/25 11:30 10/07/25 22:02 4 UNITS Dextrose 50 ml UD PRN IV 10/03/25 10:00 Brimonidine Tartrate 1 drop TID EACHEYE 10/03/25 14:00 10/08/25 05:13 1 DROP Gabapentin 800 mg TID PO 10/03/25 14:00 10/08/25 15:39 800 MG Ketorolac Tromethamine 30 mg Q6HPRN PRN IV 10/04/25 13:45 10/09/25 13:44 10/08/25 12:41 30 MG Colchicine 0.6 mg Q12HR PO 10/04/25 22:00 10/07/25 21:11 0.6 MG Metoprolol Succinate 50 mg DAILY PO 10/06/25 10:00 10/07/25 11:16 50 MG Levofloxacin/ Dextrose 100 ml @ 100 mls/hr DAILY IV 10/08/25 15:00 10/08/25 15:39 100 MLS/HR Patient Own Medication 320 DAILY SC 10/09/25 10:00 UNV Examination Pt is lying on bed General Appearance: Alert, Oriented X3, Cooperative, Not in acute distress HEENT: Atraumatic, Mucous membranes moist/pink Respiratory: Clear to auscultation, Normal air movement, No added sounds Cardiovascular: Regular rate, Normal S1, Normal S2, No murmurs Abdominal: Active bowel sounds, Soft, no distention, no tenderness Extremities: No edema, Normal pulses, No tenderness/swelling Skin: No Significant rash, except past surgical scars Neuro: Normal speech, sensorimotor deficits none Psych/Mental Status: Mental status NL, Mood NL Nurse was there as corrosion prevention metal sprayer during examination laboratory and microbiology Laboratory Tests 10/08/25 05:18 Test 10/08/25 05:18 Range/Units Serum Glucose 145 H 74-106 mg/dL Microbiology Date/Time Source Procedure Growth Status 10/06/25 15:34 Blood Blood Culture - Preliminary NO GROWTH AFTER 24 HOURS OF INCUBATION. Resulted 10/04/25 11:42 Voided Urine Urine Culture - Final Complete 10/03/25 23:55 Nose MRSA Screen - Final Complete 10/03/25 16:50 Aspirate Gram Stain - Final Resulted 10/03/25 16:50 Aspirate Body Fluid Culture - Preliminary No growth Resulted Problem List/Assessment/Plan Problem List/Assessment/Plan 1. Large pericardial effusion with tamponade . s/p pericardial tamponade drainage x2 s/p pericardial window Etiology unclear; possible malignant, inflammatory, or post-surgical given history of pelvic mass and prior pericardial window. 10/04/25: pericardiocentesis done drainage at OR 700cc, later at 7: 45 pm 950 cc serosanguineous drained, patient states that she is feeling better, BP stable, pending CT scan and ECHO post procedure. 10/06/25: colchicine given at 9 am, small drainage from drain, ECHO today STILL WITH SIGNIFICANT REAACUMULATION OF PERICARDIAL FLUID NO TAMPONADE, we will flush the catheter Hold on amiodarone drip: afib and tachycardia is due to drain continue BB 10/07/25: echo today: moderate pericardial effusion adjacent to RV , large effusion that is circumferential which is mainly posterior and lateral adjacent to LV about 3.5 cm, no tamponade, patient will have tomorrow pericardiocentesis again 10/08/25: pericardial drain pulled out 11 pm yesterday, no signs of tamponade, patient was taken to medical laboratory manager for new pericardiocentesis and pericardial window, procedure without complications, upgrade to ICU, start levaquin IV, start rilonacept antiIL1 due to recurrent pericarditis 2. UTI on levaquin 3. HFpEF, chronic. Complicated by recurrent effusions. Hold diuretics for now due to soft blood pressures. Monitor volume status. 4. COPD. Currently without wheezing or exacerbation. 5. Diabetes mellitus. insulin sliding scale 6. Hypertension and hyperlipidemia. Hold antihypertensives due to low BP. Continue statin when stable. 7. History of pelvic mass and hysterectomy. Unknown malignancy status. CT scan of abdomen and pelvis with contrast, oncologic markers: negative ct scan is negative , ca 125 was very positive in 2019, now is negative Case discussed with Dr Mesa Plan discussed with: Patient, Other (rn) My Orders My Orders Orders - GIOVANNI HARPER Procedure Category Date Status Time Transfer Orders XFER 10/08/25 Transmitted 15:00 Levofloxacin 500mg PHA 10/08/25 In Process (Levaquin 500mg/ 100m 15:00 Patients Own PHA 10/09/25 Logged Medication 10:00 Echo 2d Mode Cardiac US 10/09/25 Logged DOP 08:00 Complete Blood Count LAB 10/09/25 Verified 04:00 Chest Xray 1 View XY 10/09/25 Logged 04:00 Dietary Evaluation Review Comments: [facility] Recommendation: [facility] as medically feasible 2) Monitor NPO status, lab values, weight trend, and I/O Expected Outcomes/Goals: Intake to meet >75% estimated needs Lab values to improve FU 2-3 days Visit Coding Cardiology RES Date of Service: Oct 08, 2025 Billing Provider: COLLETTE RODRIGUEZ MD Cardiology Common Codes: 76008-EFYEUONY CARE 30-74 MIN GIOVANNI HARPER RESIDENT Oct 08, 2025 15:58
--- NOTE | 2025-10-08 16:16 | DVH ---
Exam: US PERICARDIOCENTESIS, US PERICARDIOCENTESIS Clinical History: PERICARDIO Comparison: US ECHO 2D MODE CARDIAC DOP on DOS: 10/07/25, US ECHO 2D MODE CARDIAC DOP on DOS: 10/06/25, US ECHO 2D MODE CARDIAC DOP on DOS: 10/03/25 Technique: Targeted sonographic evaluation of the soft tissues of the pericardial was obtained utilizing grayscale and color Doppler imaging. Findings/Impression: Sonographic assistance for pericardiocentesis. Please refer to procedural report for detailed findings.
[2025-10-09] VITALS (43 sets, daily range): BP systolic 98–153; BP diastolic 49–92; PULSE 60–88; RESP 11–26; TEMP 97.9–98.4; O2SAT 88–100
[2025-10-09 03:47] LABS: Hematocrit 35.0 % (36.0-46.0); Hemoglobin 11.1 g/dL (12.2-16.2); Mean Corpuscular Hemoglobin 28.7 pg (28.0-32.0); Mean Corpuscular Volume 90.2 fL (80.0-100.0); Nucleated Red Blood Cells % 0.0 %
[2025-10-09 03:59] LABS: Alanine Aminotransferase 39 U/L (7-40); Albumin 3.6 g/dL (3.2-4.8); Alkaline Phosphatase 84 U/L (46-116); Anion Gap 10 (5-15); BUN/Creatinine Ratio 26.9 (10.0-20.0); Blood Urea Nitrogen 21 mg/dL (9-23); Calcium 9.9 mg/dL (8.7-10.4); Carbon Dioxide 28 mmol/L (20-31); Chloride 104 mmol/L (98-107); Glucose 88 mg/dL (74-106); Potassium 5.0 mmol/L (3.5-5.1); Sodium 142 mmol/L (136-145); Total Protein 6.2 g/dL (5.7-8.2)
[2025-10-09 04:06] LABS: Bilirubin, Total 0.2 mg/dL (0.2-1.0)
--- NOTE | 2025-10-09 05:48 | DVH ---
CHEST RADIOGRAPH Indication: f/u pleural effusion Technique: Single frontal view of the chest was obtained COMPARISON: XY CHEST XRAY 1 VIEW on DOS: 10/08/25, XY CHEST XRAY 1 VIEW on DOS: 10/07/25, XY CHEST PORTABLE on DOS: 10/06/25, XY CHEST XRAY 1 VIEW on DOS: 10/05/25, XY CHEST PORTABLE on DOS: 10/03/25 FINDINGS: Stable enlargement of the cardiac silhouette. Pulmonary venous congestion has improved. Probable small layering left-sided pleural effusion with mild left basilar atelectasis. IMPRESSION: Persistent enlargement of the cardiac silhouette although likely improved. Improved pulmonary venous congestion.
--- NOTE | 2025-10-09 07:45 | DVHPN2 ---
Progress Note - Dictate Date Seen: Oct 09, 2025 Has the PT tested + for MRSA If YES, has PT been informed?: No Medical Necessity Reason Pt with a Central, PICC or Fol: No Subjective PT WITH HX OF PELVIC/ GI MALIGNANCY S/P RESECTION CT OF ABD PELVIS PENDING NOW WITH RECURRENT PERICARDIAL EFFUSION PT HAS HAD 3 [PERICARDIOCENTESIS WITH APPARENT PERICARDIAL WINDOW BUT NOW WITH PERICARDIAL EFFUSION WITH TAMPONADE PHYSIOLOGY TOTAL OF 1500 CC HAS BEEN DRAINED REPEAT ECHO PENDING PT HAS NO INSIGHT TO HER DISEASE PROCESS MORBID OBESITY vital signs Vital Sign Date Time Temp Pulse Resp B/P (MAP) Pulse Ox O2 Delivery O2 Flow Rate FiO2 10/09/25 07:01 71 19 140/72 (94) 95 10/09/25 04:01 97.9 97.9 10/08/25 20:00 Nasal Cannula* 2 28 Total Intake and Output 10/08/25 10/08/25 10/09/25 15:00 23:00 07:00 Intake Total 620 ml 400 ml Output Total 950 ml 100 ml Balance -330 ml 300 ml medications Current Medications Medications Dose Ordered Sig/Yuli Route Start Time Stop Time Status Last Admin Dose Admin Atorvastatin Calcium 40 mg HS PO 10/03/25 22:00 10/08/25 22:47 40 MG Acetaminophen 650 mg Q6HP PRN PO 10/03/25 10:00 10/08/25 04:38 650 MG Ondansetron HCl 4 mg Q4HP PRN IV 10/03/25 10:00 Diagnostic Test (Pha) 1 strip ACHS 10/03/25 11:30 10/09/25 06:55 1 STRIP Insulin Human Regular ACHS SC 10/03/25 11:30 10/08/25 22:54 4 UNITS Dextrose 50 ml UD PRN IV 10/03/25 10:00 Brimonidine Tartrate 1 drop TID EACHEYE 10/03/25 14:00 10/09/25 06:55 1 DROP Gabapentin 800 mg TID PO 10/03/25 14:00 10/09/25 06:54 800 MG Ketorolac Tromethamine 30 mg Q6HPRN PRN IV 10/04/25 13:45 10/09/25 13:44 10/08/25 12:41 30 MG Colchicine 0.6 mg Q12HR PO 10/04/25 22:00 10/08/25 22:47 0.6 MG Metoprolol Succinate 50 mg DAILY PO 10/06/25 10:00 10/07/25 11:16 50 MG Levofloxacin/ Dextrose 100 ml @ 100 mls/hr DAILY IV 10/08/25 15:00 10/08/25 15:39 100 MLS/HR Patient Own Medication 320 DAILY SC 10/09/25 10:00 Future Hold laboratory and microbiology Laboratory Tests 10/09/25 03:00 Test 10/09/25 03:00 Range/Units Serum Glucose 88 74-106 mg/dL Problem List HX OF PELVIC/ GI MALIGNANCY S/P RESECTION CT OF ABD PELVIS PENDING NOW WITH RECURRENT PERICARDIAL EFFUSION PT HAS HAD 3 [PERICARDIOCENTESIS WITH APPARENT PERICARDIAL WINDOW BUT NOW WITH PERICARDIAL EFFUSION WITH TAMPONADE PHYSIOLOGY TOTAL OF 1500 CC HAS BEEN DRAINED REPEAT ECHO PENDING PT HAS NO INSIGHT TO HER DISEASE PROCESS MORBID OBESITY Assessment/Plan PT WITH PERICARDIAL DRAIN REPEAT ECHO ABX CX OF FLUID NEGATIVE GRAM STAIN NEGATIVE CELL COUNT NO CONSISTENT WITH MALIGNANCY BUT MORE CONSISTENT WITH REACTIVE / INFLAMMATORY ETIOLOGY CYTOLOGY PENDING CHEMISTRY PENDING CONSIDER COLCHICINE AND RILONACEPT( FDA APPROVED) OR ANAKINRA ( NOT APPROVED YET) EPISODE OF TACHYCARDIA STARTED TOPROL XL DC PERICARDIAL DRAIN ECHO IN AM SMALL LOCULATED POSTERIOR EFFUSION ECHO 09/1025 STILL WITH SMALL POSTERIOR EFFUSION STILL COLCHICINE HAS NOT BEEN STARTED reposition catheter tomorrow HAD TO REINSERT PERICARDIOCENTESIS BALLOON DILATION FOR PERICARDIAL WINDOW START INTERLEUKIN 1 ANTAGONIST ARCALYST / PILONECEPT 160 MG SUBCQ BID X 2 DOSES GIVEN WEEKLY S/P REPEAT PERICARDIOCENTESIS 800 CC OF SEROUS FLUID DRAINED ECHO TODAY Dietary Evaluation Review Comments: Nutrition Recommendation: 1) advance to [facility] 60gm + cardiac diet as medically feasible 2) Monitor NPO status, lab values, weight trend, and I/O Expected Outcomes/Goals: Intake to meet >75% estimated needs Lab values to improve FU 2-3 days Plan discussed with: Patient COLLETTE RODRIGUEZ MD Oct 09, 2025 07:45
[2025-10-09] MEDS ORDERED: PATIENTS OWN MEDICATION SC SCH (10:00)
--- NOTE | 2025-10-09 11:10 | DVHPNRES ---
Progress Note Date Seen: Oct 09, 2025 Resident Creating Document: GIOVANNI HARPER RESIDENT Has the PT tested + for MRSA If YES, has PT been informed?: No Medical Necessity Reason Pt with a Central, PICC or Fol: No Subjective Review of Systems This is a 65-year-old female with a past medical history of HFpEF, COPD, diabetes mellitus, hyperlipidemia, hypertension, and long-standing recurrent pleural and pericardial effusions. She has undergone several pericardiocenteses since 2018 and ultimately required a pericardial window in 2023. Review of prior records shows that in 2019 she was found to have a large heterogeneous pelvic mass on MRI, described as a possible uterine or ovarian neoplasm with distortion of normal uterine architecture, though the patient reports that before the pandemic she underwent a hysterectomy with removal of all female organs at [facility]. She is a poor historian and has limited details about the malignancy or the extent of surgery. She now presents with three days of chest pain and progressive shortness of breath. The chest discomfort is vague and pressure-like and improves when she lies on her right side. She denies fever, cough, palpitations, or leg swelling. She does report orthopnea and fatigue. On arrival, her blood pressure was soft at 102 over 70. She appeared mildly dyspneic but was able to speak in full sentences. In the ED: An ECOSTAT was obtained, revealing a large pericardial effusion with echocardiographic signs concerning for tamponade physiology. She was urgently evaluated given her soft blood pressures and exam findings of muffled heart sounds and jugular venous distention along the left side of the neck. No peripheral edema was noted. The case was discussed with Dr. Mesa from cardiology. Given her symptoms, exam, and imaging, the recommendation is pericardiocentesis. PAST MEDICAL HISTORY HFpEF, COPD, diabetes mellitus, hyperlipidemia, hypertension, recurrent pleural effusions, recurrent pericardial effusions status post multiple pericardiocenteses and pericardial window (2023), history of pelvic mass with reported hysterectomy and bilateral removal of reproductive organs. PAST SURGICAL HISTORY Multiple pericardiocenteses, pericardial window in 2023, reported hysterectomy with removal of ovaries and uterus before the pandemic. 10/04/25: pericardiocentesis done drainage at OR 700cc, later at 7: 45 pm 950 cc serosanguineous drained, patient states that she is feeling better, BP stable, pending CT scan and ECHO post procedure. T 99.3 we will continue AB, UA also showed possible UTI. 10/06/25: colchicine given at 9 am, small drainage from drain, ECHO today STILL WITH SIGNIFICANT REAACUMULATION OF PERICARDIAL FLUID NO TAMPONADE, we will flush the catheter Hold on amiodarone drip: afib and tachycardia is due to drain continue BB, T 100.5 in the am, no wbc 10/07/25: echo today: moderate pericardial effusion adjacent to RV , large effusion that is circumferential which is mainly posterior and lateral adjacent to LV about 3.5 cm, no tamponade, patient will have tomorrow pericardiocentesis again 10/08/25: pericardial drain pulled out 11 pm yesterday, no signs of tamponade, patient was taken to farm labor contractor for new pericardiocentesis and pericardial window, procedure without complications, upgrade to ICU, start levaquin IV, start rilonacept anti-IL1 due to recurrent pericarditis 10/09/25: HR normal, BP normal, drainage after procedure 125 cc, pending ECHO today Objective vital signs Vital Sign Date Time Temp Pulse Resp B/P (MAP) Pulse Ox O2 Delivery O2 Flow Rate FiO2 10/09/25 10:25 92 114/62 10/09/25 07:01 19 95 10/09/25 04:01 97.9 97.9 10/08/25 20:00 Nasal Cannula* 2 28 Total Intake and Output 10/08/25 10/08/25 10/09/25 15:00 23:00 07:00 Intake Total 620 ml 400 ml Output Total 950 ml 100 ml Balance -330 ml 300 ml medications Current Medications Medications Dose Ordered Sig/Yuli Route Start Time Stop Time Status Last Admin Dose Admin Atorvastatin Calcium 40 mg HS PO 10/03/25 22:00 10/08/25 22:47 40 MG Acetaminophen 650 mg Q6HP PRN PO 10/03/25 10:00 10/08/25 04:38 650 MG Ondansetron HCl 4 mg Q4HP PRN IV 10/03/25 10:00 Diagnostic Test (Pha) 1 strip ACHS 10/03/25 11:30 10/09/25 06:55 1 STRIP Insulin Human Regular ACHS SC 10/03/25 11:30 10/08/25 22:54 4 UNITS Dextrose 50 ml UD PRN IV 10/03/25 10:00 Brimonidine Tartrate 1 drop TID EACHEYE 10/03/25 14:00 10/09/25 06:55 1 DROP Gabapentin 800 mg TID PO 10/03/25 14:00 10/09/25 06:54 800 MG Ketorolac Tromethamine 30 mg Q6HPRN PRN IV 10/04/25 13:45 10/09/25 13:44 10/08/25 12:41 30 MG Colchicine 0.6 mg Q12HR PO 10/04/25 22:00 10/09/25 10:20 0.6 MG Metoprolol Succinate 50 mg DAILY PO 10/06/25 10:00 10/09/25 10:25 50 MG Levofloxacin/ Dextrose 100 ml @ 100 mls/hr DAILY IV 10/08/25 15:00 10/09/25 10:20 100 MLS/HR Patient Own Medication 320 DAILY SC 10/09/25 10:00 Hold Examination Pt is lying on bed General Appearance: Alert, Oriented X3, Cooperative, Not in acute distress HEENT: Atraumatic, Mucous membranes moist/pink Respiratory: Clear to auscultation, Normal air movement, No added sounds Cardiovascular: Regular rate, Normal S1, Normal S2, No murmurs, drain: empty at the time of exam Abdominal: Active bowel sounds, Soft, no distention, no tenderness Extremities: No edema, Normal pulses, No tenderness/swelling Skin: No Significant rash, except past surgical scars Neuro: Normal speech, sensorimotor deficits none Psych/Mental Status: Mental status NL, Mood NL Nurse was there as assistant real estate manager during examination laboratory and microbiology Laboratory Tests 10/09/25 03:00 Test 10/09/25 03:00 Range/Units Serum Glucose 88 74-106 mg/dL Microbiology Date/Time Source Procedure Growth Status 10/06/25 15:34 Blood Blood Culture - Preliminary NO GROWTH AFTER 48 HOURS OF INCUBATION. Resulted 10/04/25 11:42 Voided Urine Urine Culture - Final Complete 10/03/25 23:55 Nose MRSA Screen - Final Complete 10/03/25 16:50 Aspirate Gram Stain - Final Resulted 10/03/25 16:50 Aspirate Body Fluid Culture - Preliminary No growth Resulted Problem List/Assessment/Plan Problem List/Assessment/Plan 1. Large pericardial effusion with tamponade . s/p pericardial tamponade drainage x2 s/p pericardial window Etiology unclear; possible malignant, inflammatory, or post-surgical given history of pelvic mass and prior pericardial window. 10/04/25: pericardiocentesis done drainage at OR 700cc, later at 7: 45 pm 950 cc serosanguineous drained, patient states that she is feeling better, BP stable, pending CT scan and ECHO post procedure. 10/06/25: colchicine given at 9 am, small drainage from drain, ECHO today STILL WITH SIGNIFICANT REAACUMULATION OF PERICARDIAL FLUID NO TAMPONADE, we will flush the catheter Hold on amiodarone drip: afib and tachycardia is due to drain continue BB 10/07/25: echo today: moderate pericardial effusion adjacent to RV , large effusion that is circumferential which is mainly posterior and lateral adjacent to LV about 3.5 cm, no tamponade, patient will have tomorrow pericardiocentesis again 10/08/25: pericardial drain pulled out 11 pm yesterday, no signs of tamponade, patient was taken to farm labor contractor for new pericardiocentesis and pericardial window, procedure without complications, upgrade to ICU, start levaquin IV, start rilonacept antiIL1 due to recurrent pericarditis 10/09/25: HR normal, BP normal, drainage after procedure 125 cc, pending ECHO today 2. UTI on levaquin 3. HFpEF, chronic. Complicated by recurrent effusions. Hold diuretics for now due to soft blood pressures. Monitor volume status. 4. COPD. Currently without wheezing or exacerbation. 5. Diabetes mellitus. insulin sliding scale 6. Hypertension and hyperlipidemia. Hold antihypertensives due to low BP. Continue statin when stable. 7. History of pelvic mass and hysterectomy. Unknown malignancy status. CT scan of abdomen and pelvis with contrast, oncologic markers: negative ct scan is negative , ca 125 was very positive in 2019, now is negative Case discussed with Dr Mesa Plan discussed with: Patient My Orders My Orders Orders - GIOVANNI HARPER Procedure Category Date Status Time Transfer Orders XFER 10/08/25 Transmitted 15:00 Levofloxacin 500mg PHA 10/08/25 In Process (Levaquin 500mg/ 100m 15:00 Patients Own PHA 10/09/25 In Process Medication 10:00 Echo 2d Mode Cardiac US 10/09/25 Logged DOP 08:00 Chest Xray 1 View XY 10/09/25 Resulted 04:00 Dietary Evaluation Review Comments: [facility] Recommendation: [facility] diet as medically feasible 2) Monitor NPO status, lab values, weight trend, and I/O Expected Outcomes/Goals: Intake to meet >75% estimated needs Lab values to improve FU 2-3 days Visit Coding Cardiology RES Date of Service: Oct 09, 2025 Billing Provider: COLLETTE RODRIGUEZ MD, MARIA RESIDENT Oct 09, 2025 11:10
--- NOTE | 2025-10-09 11:59 | DVHPN2 ---
Subjective The patient seen and examined at bedside. The patient feel better today, status post pericardial window yesterday which removed 1,400 ml from pericardial effusion. Reviewed: Care Plan, H&P, Labs, Medications, Previous Orders, Radiology Changes from previous H/P or p: No Changes Cardiovascular: Chest Pain Respiratory: Shortness of breath Objective Vitals Vital Signs Date Time Temp Pulse Resp B/P (MAP) Pulse Ox O2 Delivery O2 Flow Rate FiO2 10/09/25 10:25 92 114/62 10/09/25 07:01 19 95 10/09/25 04:01 97.9 97.9 10/08/25 20:00 Nasal Cannula* 2 28 Intake/Output Intake and Output 10/09/25 07:00 Intake Total 1020 ml Output Total 1050 ml Balance -30 ml Intake Oral 920 ml IV Total 100 ml Output Urine Total 425 ml Drainage Total 625 ml # Voids 6 General Appearance: Alert, Oriented X3, Cooperative, No acute distress HEENT: Atraumatic, PERRLA, EOMI, Mucous membr. moist/pink Lungs: Clear to auscultation, Normal air movement Cardiovascular: Regular rate, Normal S1, Normal S2, No murmurs, Gallops, Rubs Abdomen: Normal bowel sounds, Soft, No tenderness Extremities: No edema Neuro: Cranial nerves 3-12 NL Psych/Mental Status: Mental status NL Medications Current Medications Medications Dose Ordered Sig/Yuli Route Start Time Stop Time Status Last Admin Dose Admin Atorvastatin Calcium 40 mg HS PO 10/03/25 22:00 10/08/25 22:47 40 MG Acetaminophen 650 mg Q6HP PRN PO 10/03/25 10:00 10/09/25 11:32 650 MG Ondansetron HCl 4 mg Q4HP PRN IV 10/03/25 10:00 Diagnostic Test (Pha) 1 strip ACHS 10/03/25 11:30 10/09/25 11:33 1 STRIP Insulin Human Regular ACHS SC 10/03/25 11:30 10/09/25 11:47 6 UNITS Dextrose 50 ml UD PRN IV 10/03/25 10:00 Brimonidine Tartrate 1 drop TID EACHEYE 10/03/25 14:00 10/09/25 06:55 1 DROP Gabapentin 800 mg TID PO 10/03/25 14:00 10/09/25 06:54 800 MG Ketorolac Tromethamine 30 mg Q6HPRN PRN IV 10/04/25 13:45 10/09/25 13:44 10/08/25 12:41 30 MG Colchicine 0.6 mg Q12HR PO 10/04/25 22:00 10/09/25 10:20 0.6 MG Metoprolol Succinate 50 mg DAILY PO 10/06/25 10:00 10/09/25 10:25 50 MG Levofloxacin/ Dextrose 100 ml @ 100 mls/hr DAILY IV 10/08/25 15:00 10/09/25 10:20 100 MLS/HR Patient Own Medication 320 DAILY SC 10/09/25 10:00 Hold Laboratory Results Laboratory Tests 10/09/25 03:00 Chemistry Test 10/09/25 03:00 Albumin 3.6 g/dL (3.2-4.8) Calcium Level 9.9 mg/dL (8.7-10.4) Total Protein 6.2 g/dL (5.7-8.2) LFT Test 10/09/25 03:00 Alanine Aminotransferase (ALT) 39 U/L (7-40) Alkaline Phosphatase 84 U/L (46-116) Aspartate Amino Transferase (AST) 50 U/L (13-40) H Total Bilirubin 0.2 mg/dL (0.2-1.0) Urinalysis Test 10/03/25 11:42 Urine Color Yellow (Yellow) Urine Clarity Turbid (Clear) H Urine pH 5.5 (5.0-9.0) Urine Specific [place] 1.025 (1.001-1.035) Urine Protein Trace (Negative) H Urine Ketones Negative (Negative) Urine Blood Negative /uL (Negative) Urine Nitrite Negative (Negative) Urine Bilirubin Negative (Negative) Urine Urobilinogen 4 mg/dL (Negative) H Urine Leukocyte Esterase 3+ /uL (Negative) Urine RBC 3 /hpf (0 - 4) Urine Microscopic WBC 113 /HPF (0-5) H Urine Squamous Epithelial Cells Few /hpf (<5) Urine Bacteria Few /hpf (None Seen) H Urine Glucose Normal mg/dL (Normal) Microbiology Microbiology Date/Time Source Procedure Growth Status 10/06/25 15:34 Blood Blood Culture - Preliminary NO GROWTH AFTER 48 HOURS OF INCUBATION. Resulted 10/04/25 11:42 Voided Urine Urine Culture - Final Complete 10/03/25 23:55 Nose MRSA Screen - Final Complete 10/03/25 16:50 Aspirate Gram Stain - Final Resulted 10/03/25 16:50 Aspirate Body Fluid Culture - Preliminary No growth Resulted Labs and/or images reviewed: Labs reviewed by me Assessment/Plan Assessment/Plan Pericardial effusion s/p pericardiocentesis x2. Yesterday removed 1.4L fluid from Pericardial fluid. History of pelvic mass resection Recurrent pericardial effusion Morbid obesity COPD Hypertension Type 2 diabetes UTI Atrial fibrillation with RVR now sinus tachycardia Plan Continuing current management. Continuing With IV antibiotic cefazolin. Continuing with colchicine. Continuing with metoprolol. Per bridge crane operator's no need to start amiodarone yet. CA 19 9 and CEA is normal will follow up with repeat echo. This medical document was created using an electronic medical record system with [employer] computerized dictation system. Although this document has been carefully reviewed, there may still be some phonetic and typographical errors. These areas are purely typographical due to imperfections of the software programs, and do not reflect any compromise in the patient's medical care. Plan discussed with: Patient Date of Service: Oct 09, 2025 Billing Provider: LILY WELLS MD Common Visit Codes: [id number] INP/OBS CARE(HIGH) LILY WELLS MD Oct 09, 2025 11:59
[2025-10-09] MEDS ORDERED: ACETYLCYSTEINE 10 %(100MG/ML) SOL 4ML NEB SCH (15:45)
[2025-10-09] MEDS ORDERED: LEVALBUTEROL HCL 1.25 MG/3 ML NEB NEB SCH (15:45)
[2025-10-10] VITALS (43 sets, daily range): BP systolic 95–154; BP diastolic 58–86; PULSE 62–81; RESP 11–26; TEMP 98–98.6; O2SAT 89–100
[2025-10-10 03:17] LABS: Hematocrit 37.4 % (36.0-46.0); Hemoglobin 11.8 g/dL (12.2-16.2); Mean Corpuscular Hemoglobin 28.3 pg (28.0-32.0); Mean Corpuscular Volume 89.5 fL (80.0-100.0); Nucleated Red Blood Cells % 0.1 %
[2025-10-10 03:27] LABS: Chloride 105 mmol/L (98-107); Sodium 141 mmol/L (136-145)
[2025-10-10 03:28] LABS: Anion Gap 8 (5-15); Calcium 10.4 mg/dL (8.7-10.4); Carbon Dioxide 28 mmol/L (20-31)
[2025-10-10 03:34] LABS: BUN/Creatinine Ratio 16.9 (10.0-20.0); Blood Urea Nitrogen 13 mg/dL (9-23)
[2025-10-10 03:58] LABS: Glucose 142 mg/dL (74-106); Potassium 5.2 mmol/L (3.5-5.1)
--- NOTE | 2025-10-10 06:06 | DVH ---
MEDICAL RECORDS NUMBER: [id number] PROCEDURE: XY CHEST PORTABLE DATE: 10/10/2025 05:39 AM HISTORY: PERICARDIAL EFFUSION Views:1 COMPARISON: XY CHEST XRAY 1 VIEW on DOS: 10/09/25, XY CHEST XRAY 1 VIEW on DOS: 10/08/25, XY CHEST XRAY 1 VIEW on DOS: 10/07/25, XY CHEST PORTABLE on DOS: 10/06/25, XY CHEST XRAY 1 VIEW on DOS: 10/05/25 FINDINGS/IMPRESSION: Lungs: Allowing for overlying soft tissues, the lungs appear grossly clear. Mediastinum: Mediastinal structures appear unremarkable... Skeletal: The skeletal structures appear unremarkable.
[2025-10-10] MEDS: DEXTROSE (50%) 50ML SYRG IV ONE (06:32)
[2025-10-10] MEDS: FUROSEMIDE 20 MG/2 ML VIAL IV ONE (06:33)
[2025-10-10] MEDS: InsuLIN REG 1unit/0.01ml Soln (100units/ml) IV ONE (06:48)
--- NOTE | 2025-10-10 11:33 | DVHPNRES ---
Progress Note Date Seen: Oct 10, 2025 Resident Creating Document: GIOVANNI HARPER RESIDENT Has the PT tested + for MRSA If YES, has PT been informed?: No Medical Necessity Reason Pt with a Central, PICC or Fol: No Subjective Review of Systems This is a 65-year-old female with a past medical history of HFpEF, COPD, diabetes mellitus, hyperlipidemia, hypertension, and long-standing recurrent pleural and pericardial effusions. She has undergone several pericardiocenteses since 2018 and ultimately required a pericardial window in 2023. Review of prior records shows that in 2019 she was found to have a large heterogeneous pelvic mass on MRI, described as a possible uterine or ovarian neoplasm with distortion of normal uterine architecture, though the patient reports that before the pandemic she underwent a hysterectomy with removal of all female organs at [facility]. She is a poor historian and has limited details about the malignancy or the extent of surgery. She now presents with three days of chest pain and progressive shortness of breath. The chest discomfort is vague and pressure-like and improves when she lies on her right side. She denies fever, cough, palpitations, or leg swelling. She does report orthopnea and fatigue. On arrival, her blood pressure was soft at 102 over 70. She appeared mildly dyspneic but was able to speak in full sentences. In the ED: An ECOSTAT was obtained, revealing a large pericardial effusion with echocardiographic signs concerning for tamponade physiology. She was urgently evaluated given her soft blood pressures and exam findings of muffled heart sounds and jugular venous distention along the left side of the neck. No peripheral edema was noted. The case was discussed with Dr. Mesa from cardiology. Given her symptoms, exam, and imaging, the recommendation is pericardiocentesis. PAST MEDICAL HISTORY HFpEF, COPD, diabetes mellitus, hyperlipidemia, hypertension, recurrent pleural effusions, recurrent pericardial effusions status post multiple pericardiocenteses and pericardial window (2023), history of pelvic mass with reported hysterectomy and bilateral removal of reproductive organs. PAST SURGICAL HISTORY Multiple pericardiocenteses, pericardial window in 2023, reported hysterectomy with removal of ovaries and uterus before the pandemic. 10/04/25: pericardiocentesis done drainage at OR 700cc, later at 7: 45 pm 950 cc serosanguineous drained, patient states that she is feeling better, BP stable, pending CT scan and ECHO post procedure. T 99.3 we will continue AB, UA also showed possible UTI. 10/06/25: colchicine given at 9 am, small drainage from drain, ECHO today STILL WITH SIGNIFICANT REAACUMULATION OF PERICARDIAL FLUID NO TAMPONADE, we will flush the catheter Hold on amiodarone drip: afib and tachycardia is due to drain continue BB, T 100.5 in the am, no wbc 10/07/25: echo today: moderate pericardial effusion adjacent to RV , large effusion that is circumferential which is mainly posterior and lateral adjacent to LV about 3.5 cm, no tamponade, patient will have tomorrow pericardiocentesis again 10/08/25: pericardial drain pulled out 11 pm yesterday, no signs of tamponade, patient was taken to director of labor relations for new pericardiocentesis and pericardial window, procedure without complications, upgrade to ICU, start levaquin IV, start rilonacept anti-IL1 due to recurrent pericarditis 10/09/25: HR normal, BP normal, drainage after procedure 125 cc, pending ECHO today 10/10/25: patient will be downgraded, no drainage today, ECHO is showing some posterior effusion, please keep drain until monday, hyperkalemia am, resolved after insulin and furosemide, normal creatinine Objective vital signs Vital Sign Date Time Temp Pulse Resp B/P (MAP) Pulse Ox O2 Delivery O2 Flow Rate FiO2 10/10/25 10:48 80 130/76 10/10/25 10:00 98 Nasal Cannula 2.0 10/10/25 10:00 28 10/10/25 07:30 21 10/10/25 04:01 98.5 98.5 Total Intake and Output 10/09/25 10/09/25 10/10/25 14:59 22:59 06:59 Intake Total 100 ml 1280 ml 380 ml Output Total 0 ml Balance 100 ml 1280 ml 380 ml medications Current Medications Medications Dose Ordered Sig/Yuli Route Start Time Stop Time Status Last Admin Dose Admin Atorvastatin Calcium 40 mg HS PO 10/03/25 22:00 10/09/25 22:52 40 MG Acetaminophen 650 mg Q6HP PRN PO 10/03/25 10:00 10/09/25 11:32 650 MG Ondansetron HCl 4 mg Q4HP PRN IV 10/03/25 10:00 Diagnostic Test (Pha) 1 strip ACHS 10/03/25 11:30 10/10/25 10:56 1 STRIP Insulin Human Regular ACHS SC 10/03/25 11:30 10/09/25 17:10 2 UNITS Dextrose 50 ml UD PRN IV 10/03/25 10:00 Brimonidine Tartrate 1 drop TID EACHEYE 10/03/25 14:00 10/10/25 06:32 1 DROP Gabapentin 800 mg TID PO 10/03/25 14:00 10/10/25 06:33 800 MG Colchicine 0.6 mg Q12HR PO 10/04/25 22:00 10/10/25 10:48 0.6 MG Metoprolol Succinate 50 mg DAILY PO 10/06/25 10:00 10/10/25 10:48 50 MG Levofloxacin/ Dextrose 100 ml @ 100 mls/hr DAILY IV 10/08/25 15:00 10/10/25 10:53 100 MLS/HR Patient Own Medication 320 DAILY SC 10/09/25 10:00 Hold Levalbuterol HCl 0.625 mg Q6HR NEB 10/09/25 15:45 UNV Acetylcysteine 100 mg Q6HR NEB 10/09/25 15:45 UNV Examination Pt is lying on bed General Appearance: Alert, Oriented X3, Cooperative, Not in acute distress HEENT: Atraumatic, Mucous membranes moist/pink Respiratory: Clear to auscultation, Normal air movement, No added sounds Cardiovascular: Regular rate, Normal S1, Normal S2, No murmurs, drain: empty at the time of exam Abdominal: Active bowel sounds, Soft, no distention, no tenderness Extremities: No edema, Normal pulses, No tenderness/swelling Skin: No Significant rash, except past surgical scars Neuro: Normal speech, sensorimotor deficits none Psych/Mental Status: Mental status NL, Mood NL Nurse was there as bander and cellophaner helper machine during examination laboratory and microbiology Laboratory Tests 10/10/25 02:47 Test 10/10/25 02:47 Range/Units Serum Glucose 142 H 74-106 mg/dL Microbiology Date/Time Source Procedure Growth Status 10/06/25 15:34 Blood Blood Culture - Preliminary NO GROWTH AFTER 72 HOURS OF INCUBATION. Resulted 10/04/25 11:42 Voided Urine Urine Culture - Final Complete 10/03/25 23:55 Nose MRSA Screen - Final Complete 10/03/25 16:50 Aspirate Gram Stain - Final Complete 10/03/25 16:50 Aspirate Body Fluid Culture - Final Complete Problem List/Assessment/Plan Problem List/Assessment/Plan 1. Large pericardial effusion with tamponade . s/p pericardial tamponade drainage x2 s/p pericardial window Etiology unclear; possible malignant, inflammatory, or post-surgical given history of pelvic mass and prior pericardial window. 10/04/25: pericardiocentesis done drainage at OR 700cc, later at 7: 45 pm 950 cc serosanguineous drained, patient states that she is feeling better, BP stable, pending CT scan and ECHO post procedure. 10/06/25: colchicine given at 9 am, small drainage from drain, ECHO today STILL WITH SIGNIFICANT REAACUMULATION OF PERICARDIAL FLUID NO TAMPONADE, we will flush the catheter Hold on amiodarone drip: afib and tachycardia is due to drain continue BB 10/07/25: echo today: moderate pericardial effusion adjacent to RV , large effusion that is circumferential which is mainly posterior and lateral adjacent to LV about 3.5 cm, no tamponade, patient will have tomorrow pericardiocentesis again 10/08/25: pericardial drain pulled out 11 pm yesterday, no signs of tamponade, patient was taken to director of labor relations for new pericardiocentesis and pericardial window, procedure without complications, upgrade to ICU, start levaquin IV, start rilonacept antiIL1 due to recurrent pericarditis 10/09/25: HR normal, BP normal, drainage after procedure 125 cc, pending ECHO today 10/10/25: patient will be downgraded, no drainage today, ECHO is showing some posterior effusion, please keep drain until monday, hyperkalemia am, resolved after insulin and furosemide, normal creatinine 2. UTI on levaquin 3. HFpEF, chronic. Complicated by recurrent effusions. Hold diuretics for now due to soft blood pressures. Monitor volume status. 4. COPD. Currently without wheezing or exacerbation. 5. Diabetes mellitus. insulin sliding scale 6. Hypertension and hyperlipidemia. Hold antihypertensives due to low BP. Continue statin when stable. 7. History of pelvic mass and hysterectomy. Unknown malignancy status. CT scan of abdomen and pelvis with contrast, oncologic markers: negative ct scan is negative , ca 125 was very positive in 2019, now is negative Case discussed with Dr Mesa Plan discussed with: Patient, Other My Orders My Orders Orders - GIOVANNI HARPER Procedure Category Date Status Time Comprehensive LAB 10/10/25 Logged Metabolic Panel 10:45 Dietary Evaluation Review Comments: Nutrition Recommendation: 1) [facility] diet as medically feasible 2) Monitor NPO status, lab values, weight trend, and I/O Expected Outcomes/Goals: Intake to meet >75% estimated needs Lab values to improve FU 2-3 days Visit Coding Cardiology RES Date of Service: Oct 10, 2025 Billing Provider: COLLETTE RODRIGUEZ MD Cardiology Common Codes: [id number] CARE 30-74 MIN GIOVANNI HARPER Oct 10, 2025 11:33
[2025-10-10 12:39] LABS: Alanine Aminotransferase 36 U/L (7-40); Albumin 4.1 g/dL (3.2-4.8); Alkaline Phosphatase 90 U/L (46-116); Anion Gap 8 (5-15); BUN/Creatinine Ratio 13.6 (10.0-20.0); Blood Urea Nitrogen 12 mg/dL (9-23); Carbon Dioxide 30 mmol/L (20-31); Chloride 102 mmol/L (98-107); Potassium 4.2 mmol/L (3.5-5.1); Sodium 140 mmol/L (136-145); Total Protein 7.4 g/dL (5.7-8.2)
--- NOTE | 2025-10-10 12:39 | DVHPN2 ---
Progress Note - Dictate Date Seen: Oct 10, 2025 Has the PT tested + for MRSA If YES, has PT been informed?: No Medical Necessity Reason Pt with a Central, PICC or Fol: No Subjective PT WITH HX OF PELVIC/ GI MALIGNANCY S/P RESECTION CT OF ABD PELVIS PENDING NOW WITH RECURRENT PERICARDIAL EFFUSION PT HAS HAD 3 [PERICARDIOCENTESIS WITH APPARENT PERICARDIAL WINDOW BUT NOW WITH PERICARDIAL EFFUSION WITH TAMPONADE PHYSIOLOGY TOTAL OF 1500 CC HAS BEEN DRAINED REPEAT ECHO PENDING PT HAS NO INSIGHT TO HER DISEASE PROCESS MORBID OBESITY vital signs Vital Sign Date Time Temp Pulse Resp B/P (MAP) Pulse Ox O2 Delivery O2 Flow Rate FiO2 10/10/25 11:34 74 10/10/25 11:01 15 108/83 (91) 93 10/10/25 10:00 Nasal Cannula 2.0 10/10/25 10:00 28 10/10/25 04:01 98.5 98.5 Total Intake and Output 10/09/25 10/09/25 10/10/25 15:00 23:00 07:00 Intake Total 100 ml 1280 ml 380 ml Output Total 0 ml Balance 100 ml 1280 ml 380 ml medications Current Medications Medications Dose Ordered Sig/Yuli Route Start Time Stop Time Status Last Admin Dose Admin Atorvastatin Calcium 40 mg HS PO 10/03/25 22:00 10/09/25 22:52 40 MG Acetaminophen 650 mg Q6HP PRN PO 10/03/25 10:00 10/09/25 11:32 650 MG Ondansetron HCl 4 mg Q4HP PRN IV 10/03/25 10:00 Diagnostic Test (Pha) 1 strip ACHS 10/03/25 11:30 10/10/25 10:56 1 STRIP Insulin Human Regular ACHS SC 10/03/25 11:30 10/09/25 17:10 2 UNITS Dextrose 50 ml UD PRN IV 10/03/25 10:00 Brimonidine Tartrate 1 drop TID EACHEYE 10/03/25 14:00 10/10/25 06:32 1 DROP Gabapentin 800 mg TID PO 10/03/25 14:00 10/10/25 06:33 800 MG Colchicine 0.6 mg Q12HR PO 10/04/25 22:00 10/10/25 10:48 0.6 MG Metoprolol Succinate 50 mg DAILY PO 10/06/25 10:00 10/10/25 10:48 50 MG Levofloxacin/ Dextrose 100 ml @ 100 mls/hr DAILY IV 10/08/25 15:00 10/10/25 10:53 100 MLS/HR Patient Own Medication 320 DAILY SC 10/09/25 10:00 Hold Levalbuterol HCl 0.625 mg Q6HR NEB 10/09/25 15:45 UNV Acetylcysteine 100 mg Q6HR NEB 10/09/25 15:45 UNV laboratory and microbiology Laboratory Tests 10/10/25 02:47 Test 10/10/25 11:48 Range/Units Serum Glucose Pending Problem List HX OF PELVIC/ GI MALIGNANCY S/P RESECTION CT OF ABD PELVIS PENDING NOW WITH RECURRENT PERICARDIAL EFFUSION PT HAS HAD 3 [PERICARDIOCENTESIS WITH APPARENT PERICARDIAL WINDOW BUT NOW WITH PERICARDIAL EFFUSION WITH TAMPONADE PHYSIOLOGY TOTAL OF 1500 CC HAS BEEN DRAINED REPEAT ECHO PENDING PT HAS NO INSIGHT TO HER DISEASE PROCESS MORBID OBESITY Assessment/Plan PT WITH PERICARDIAL DRAIN REPEAT ECHO ABX CX OF FLUID NEGATIVE GRAM STAIN NEGATIVE CELL COUNT NO CONSISTENT WITH MALIGNANCY BUT MORE CONSISTENT WITH REACTIVE / INFLAMMATORY ETIOLOGY CYTOLOGY PENDING CHEMISTRY PENDING CONSIDER COLCHICINE AND RILONACEPT( FDA APPROVED) OR A[place] ( NOT APPROVED YET) EPISODE OF TACHYCARDIA STARTED TOPROL XL DC PERICARDIAL DRAIN ECHO IN AM SMALL LOCULATED POSTERIOR EFFUSION ECHO 09/1025 STILL WITH SMALL POSTERIOR EFFUSION STILL COLCHICINE HAS NOT BEEN STARTED reposition catheter tomorrow HAD TO REINSERT PERICARDIOCENTESIS BALLOON DILATION FOR PERICARDIAL WINDOW START INTERLEUKIN 1 ANTAGONIST ARCALYST / PILONECEPT 160 MG SUBCQ BID X 2 DOSES GIVEN WEEKLY S/P REPEAT PERICARDIOCENTESIS 800 CC OF SEROUS FLUID DRAINED ECHO TODAY STILL WITH PERSISTENT POSTERIOR EFFUSION DC CATHETER ON MONDAY Dietary Evaluation Review Comments: [facility]ation: [facility] as [facility] 2) Monitor NPO status, lab values, weight trend, and I/O Expected Outcomes/Goals: Intake to meet >75% estimated needs Lab values to improve FU 2-3 days Plan discussed with: Patient Critical Care Time(min): 35 COLLETTE RDORIGUEZ MD Oct 10, 2025 12:39
[2025-10-10 12:40] LABS: Bilirubin, Total 0.3 mg/dL (0.2-1.0)
[2025-10-10 12:49] LABS: Glucose 188 mg/dL (74-106)
--- NOTE | 2025-10-10 13:23 | DVHPN2 ---
Subjective The patient seen and examined at bedside. The patient feel better today Reviewed: Care Plan, H&P, Labs, Medications, Previous Orders, Radiology Changes from previous H/P or p: No Changes Cardiovascular: Chest Pain Respiratory: Shortness of breath Objective Vitals Vital Signs Date Time Temp Pulse Resp B/P (MAP) Pulse Ox O2 Delivery O2 Flow Rate FiO2 10/10/25 11:34 74 10/10/25 11:01 15 108/83 (91) 93 10/10/25 10:00 Nasal Cannula 2.0 10/10/25 10:00 28 10/10/25 04:01 98.5 98.5 Intake/Output Intake and Output 10/10/25 07:00 Intake Total 1760 ml Output Total 0 ml Balance 1760 ml Intake Oral 1660 ml IV Total 100 ml Drainage Total 0 ml # Voids 13 General Appearance: Alert, Oriented X3, Cooperative, No acute distress HEENT: Atraumatic, PERRLA, EOMI, Mucous membr. moist/pink Lungs: Clear to auscultation, Normal air movement Cardiovascular: Regular rate, Normal S1, Normal S2, No murmurs, Gallops, Rubs Abdomen: Normal bowel sounds, Soft, No tenderness Extremities: No edema Neuro: Cranial nerves 3-12 NL Psych/Mental Status: Mental status NL Medications Current Medications Medications Dose Ordered Sig/Yuli Route Start Time Stop Time Status Last Admin Dose Admin Atorvastatin Calcium 40 mg HS PO 10/03/25 22:00 10/09/25 22:52 40 MG Acetaminophen 650 mg Q6HP PRN PO 10/03/25 10:00 10/09/25 11:32 650 MG Ondansetron HCl 4 mg Q4HP PRN IV 10/03/25 10:00 Diagnostic Test (Pha) 1 strip ACHS 10/03/25 11:30 10/10/25 10:56 1 STRIP Insulin Human Regular ACHS SC 10/03/25 11:30 10/09/25 17:10 2 UNITS Dextrose 50 ml UD PRN IV 10/03/25 10:00 Brimonidine Tartrate 1 drop TID EACHEYE 10/03/25 14:00 10/10/25 06:32 1 DROP Gabapentin 800 mg TID PO 10/03/25 14:00 10/10/25 06:33 800 MG Colchicine 0.6 mg Q12HR PO 10/04/25 22:00 11/14/25 10:48 0.6 MG Metoprolol Succinate 50 mg DAILY PO 10/06/25 10:00 10/10/25 10:48 50 MG Levofloxacin/ Dextrose 100 ml @ 100 mls/hr DAILY IV 10/08/25 15:00 10/10/25 10:53 100 MLS/HR Patient Own Medication 320 DAILY SC 10/09/25 10:00 Hold Levalbuterol HCl 0.625 mg Q6HR NEB 10/09/25 15:45 UNV Acetylcysteine 100 mg Q6HR NEB 10/09/25 15:45 UNV Laboratory Results Laboratory Tests 10/10/25 02:47 10/10/25 11:48 Chemistry Test 10/10/25 02:47 10/10/25 11:48 Calcium Level 10.4 mg/dL (8.7-10.4) mg/dL (8.7-10.4) Albumin 4.1 g/dL (3.2-4.8) Total Protein 7.4 g/dL (5.7-8.2) LFT Test 10/10/25 11:48 Alanine Aminotransferase (ALT) 36 U/L (7-40) Alkaline Phosphatase 90 U/L (46-116) Aspartate Amino Transferase (AST) 37 U/L (13-40) Total Bilirubin 0.3 mg/dL (0.2-1.0) Urinalysis Test 10/03/25 11:42 Urine Color Yellow (Yellow) Urine Clarity Turbid (Clear) H Urine pH 5.5 (5.0-9.0) Urine Specific [place] 1.025 (1.001-1.035) Urine Protein Trace (Negative) H Urine Ketones Negative (Negative) Urine Blood Negative /uL (Negative) Urine Nitrite Negative (Negative) Urine Bilirubin Negative (Negative) Urine Urobilinogen 4 mg/dL (Negative) H Urine Leukocyte Esterase 3+ /uL (Negative) Urine RBC 3 /hpf (0 - 4) Urine Microscopic WBC 113 /HPF (0-5) H Urine Squamous Epithelial Cells Few /hpf (<5) Urine Bacteria Few /hpf (None Seen) H Urine Glucose Normal mg/dL (Normal) Microbiology Microbiology Date/Time Source Procedure Growth Status 10/06/25 15:34 Blood Blood Culture - Preliminary NO GROWTH AFTER 72 HOURS OF INCUBATION. Resulted 10/04/25 11:42 Voided Urine Urine Culture - Final Complete 10/03/25 23:55 Nose MRSA Screen - Final Complete 10/03/25 16:50 Aspirate Gram Stain - Final Complete 10/03/25 16:50 Aspirate Body Fluid Culture - Final Complete Labs and/or images reviewed: Labs reviewed by me Assessment/Plan Assessment/Plan Pericardial effusion s/p pericardiocentesis x2. Yesterday removed 1.4L fluid from Pericardial fluid. History of pelvic mass resection Recurrent pericardial effusion Morbid obesity COPD Hypertension Type 2 diabetes UTI Atrial fibrillation with RVR now sinus tachycardia Plan Continuing current management. Continuing With IV antibiotic cefazolin. Continuing with colchicine. Continuing with metoprolol. Per sas administrator's no need to start amiodarone yet. CA 19 9 and CEA is normal will follow up with repeat echo. LISSETTE is very minimal. Downgrade to telemetry This medical document was created using an electronic medical record system with [employer] computerized dictation system. Although this document has been carefully reviewed, there may still be some phonetic and typographical errors. These areas are purely typographical due to imperfections of the software programs, and do not reflect any compromise in the patient's medical care. Plan discussed with: Patient My Orders Orders - LILY WELLS MD Procedure Category Date Status Time Transfer Orders XFER 10/10/25 Transmitted 12:03 Date of Service: Oct 10, 2025 Billing Provider: LILY WELLS MD Common Visit Codes: [id number] INP/OBS CARE(HIGH) LILY WELLS MD Oct 10, 2025 13:23
--- NOTE | 2025-10-10 14:55 | DVHSR ---
APPROVED REPORT EXAM: Two-dimensional and M-mode echocardiogram with Doppler and color Doppler. Blood Pressure: 140/72 mmHg INDICATION F/U Pericardial Effusion RISK FACTORS Height: 5'2", Weight: 253 Conclusion S/PPERICARDIOCENTESIS STILL WITH POSTERIOR EFFUSION OVERALL EFFUSION HAS IMPTOB
[2025-10-11] VITALS (51 sets, daily range): BP systolic 95–133; BP diastolic 47–78; PULSE 66–88; RESP 10–26; TEMP 98–100; O2SAT 86–100
[2025-10-11 04:45] LABS: Chloride 103 mmol/L (98-107); Potassium 4.7 mmol/L (3.5-5.1); Sodium 142 mmol/L (136-145)
[2025-10-11 04:46] LABS: Anion Gap 10 (5-15); Calcium 10.1 mg/dL (8.7-10.4); Carbon Dioxide 29 mmol/L (20-31)
[2025-10-11 04:51] LABS: BUN/Creatinine Ratio 24.7 (10.0-20.0); Blood Urea Nitrogen 22 mg/dL (9-23)
[2025-10-11 04:54] LABS: Glucose 114 mg/dL (74-106)
--- NOTE | 2025-10-11 14:21 | DVHPN2 ---
Subjective The patient seen and examined at bedside. The patient feel better today. LISSETTE 0 output today Reviewed: Care Plan, H&P, Labs, Medications, Previous Orders, Radiology Changes from previous H/P or p: No Changes Cardiovascular: Chest Pain Respiratory: Shortness of breath Objective Vitals Vital Signs Date Time Temp Pulse Resp B/P (MAP) Pulse Ox O2 Delivery O2 Flow Rate FiO2 10/11/25 13:00 72 22 117/70 (86) 94 10/11/25 12:25 98.7 98.7 10/11/25 10:00 Nasal Cannula* 1 24 Intake/Output Intake and Output 10/11/25 07:00 Intake Total 800 ml Output Total 900 ml Balance -100 ml Intake Oral 800 ml Output Urine Total 900 ml Drainage Total 0 ml # Voids 5 General Appearance: Alert, Oriented X3, Cooperative, No acute distress HEENT: Atraumatic, PERRLA, EOMI, Mucous membr. moist/pink Lungs: Clear to auscultation, Normal air movement Cardiovascular: Regular rate, Normal S1, Normal S2, No murmurs, Gallops, Rubs Abdomen: Normal bowel sounds, Soft, No tenderness Extremities: No edema Neuro: Cranial nerves 3-12 NL Psych/Mental Status: Mental status NL Medications Current Medications Medications Dose Ordered Sig/Yuli Route Start Time Stop Time Status Last Admin Dose Admin Atorvastatin Calcium 40 mg HS PO 10/03/25 22:00 10/10/25 22:27 40 MG Acetaminophen 650 mg Q6HP PRN PO 10/03/25 10:00 10/10/25 13:25 650 MG Ondansetron HCl 4 mg Q4HP PRN IV 10/03/25 10:00 Diagnostic Test (Pha) 1 strip ACHS 10/03/25 11:30 10/11/25 11:55 1 STRIP Insulin Human Regular ACHS SC 10/03/25 11:30 10/11/25 11:55 3 UNITS Dextrose 50 ml UD PRN IV 10/03/25 10:00 Brimonidine Tartrate 1 drop TID EACHEYE 10/03/25 14:00 10/11/25 13:17 1 DROP Gabapentin 800 mg TID PO 10/03/25 14:00 10/11/25 13:17 800 MG Colchicine 0.6 mg Q12HR PO 10/04/25 22:00 10/11/25 09:33 0.6 MG Metoprolol Succinate 50 mg DAILY PO 10/06/25 10:00 10/11/25 09:32 50 MG Levofloxacin/ Dextrose 100 ml @ 100 mls/hr DAILY IV 10/08/25 15:00 10/11/25 09:33 100 MLS/HR Patient Own Medication 320 DAILY SC 10/09/25 10:00 Hold Levalbuterol HCl 0.625 mg Q6HR NEB 10/09/25 15:45 UNV Acetylcysteine 100 mg Q6HR NEB 10/09/25 15:45 UNV Laboratory Results Laboratory Tests 10/10/25 02:47 10/11/25 03:00 Chemistry Test 10/11/25 03:00 Calcium Level 10.1 mg/dL (8.7-10.4) Urinalysis Test 10/03/25 11:42 Urine Color Yellow (Yellow) Urine Clarity Turbid (Clear) H Urine pH 5.5 (5.0-9.0) Urine Specific [place] 1.025 (1.001-1.035) Urine Protein Trace (Negative) H Urine Ketones Negative (Negative) Urine Blood Negative /uL (Negative) Urine Nitrite Negative (Negative) Urine Bilirubin Negative (Negative) Urine Urobilinogen 4 mg/dL (Negative) H Urine Leukocyte Esterase 3+ /uL (Negative) Urine RBC 3 /hpf (0 - 4) Urine Microscopic WBC 113 /HPF (0-5) H Urine Squamous Epithelial Cells Few /hpf (<5) Urine Bacteria Few /hpf (None Seen) H Urine Glucose Normal mg/dL (Normal) Microbiology Microbiology Date/Time Source Procedure Growth Status 10/06/25 15:34 Blood Blood Culture - Preliminary NO GROWTH AFTER 72 HOURS OF INCUBATION. Resulted 10/04/25 11:42 Voided Urine Urine Culture - Final Complete 10/03/25 23:55 Nose MRSA Screen - Final Complete 10/03/25 16:50 Aspirate Gram Stain - Final Complete 10/03/25 16:50 Aspirate Body Fluid Culture - Final Complete Assessment/Plan Assessment/Plan Pericardial effusion s/p pericardiocentesis x2. Status post removed 1.4L fluid from Pericardial fluid. History of pelvic mass resection Recurrent pericardial effusion Morbid obesity COPD Hypertension Type 2 diabetes UTI Atrial fibrillation with RVR now sinus tachycardia Plan Continuing current management. Continuing With IV antibiotic cefazolin. Continuing with colchicine. Continuing with metoprolol. Per unitizer's no need to start amiodarone yet. CA 19 9 and CEA is normal will follow up with repeat echo. LISSETTE is very minimal. Downgrade to telemetry We will get PT to encouraged the patient to be out of bed and ambulate with PT This medical document was created using an electronic medical record system with [employer] computerized dictation system. Although this document has been carefully reviewed, there may still be some phonetic and typographical errors. These areas are purely typographical due to imperfections of the software programs, and do not reflect any compromise in the patient's medical care. This medical document was created using an electronic medical record system with [employer] computerized dictation system. Although this document has been carefully reviewed, there may still be some phonetic and typographical errors. These areas are purely typographical due to imperfections of the software programs, and do not reflect any compromise in the patient's medical care. Plan discussed with: Patient, Other (RN) Date of Service: Oct 11, 2025 Billing Provider: LILY WELLS MD Common Visit Codes: [id number] INP/OBS CARE(HIGH) LILY WELLS MD Oct 11, 2025 14:21
[2025-10-11 19:46] LABS: Hemoglobin 12.5 g/dL (12.2-16.2); Mean Corpuscular Volume 88.8 fL (80.0-100.0); Nucleated Red Blood Cells % 0.0 %
[2025-10-11 19:48] LABS: Hematocrit 38.1 % (36.0-46.0); Mean Corpuscular Hemoglobin 29.1 pg (28.0-32.0)
[2025-10-11 20:01] LABS: Albumin 3.9 g/dL (3.2-4.8); Alkaline Phosphatase 93 U/L (46-116); Anion Gap 9 (5-15); BUN/Creatinine Ratio 17.6 (10.0-20.0); Blood Urea Nitrogen 16 mg/dL (9-23); Calcium 10.3 mg/dL (8.7-10.4); Carbon Dioxide 29 mmol/L (20-31); Chloride 103 mmol/L (98-107); Potassium 4.9 mmol/L (3.5-5.1); Sodium 141 mmol/L (136-145); Total Protein 7.0 g/dL (5.7-8.2)
[2025-10-11 20:11] LABS: Alanine Aminotransferase 43 U/L (7-40); Bilirubin, Total 0.2 mg/dL (0.2-1.0); Glucose 154 mg/dL (74-106)
[2025-10-12] VITALS (25 sets, daily range): BP systolic 102–144; BP diastolic 54–87; PULSE 60–79; RESP 10–25; TEMP 98.3–98.9; O2SAT 91–100
--- NOTE | 2025-10-12 15:08 | DVHPN2 ---
Subjective The patient seen and examined at bedside. The patient feel better today. LISSETTE 10ml output today Reviewed: Care Plan, H&P, Labs, Medications, Previous Orders, Radiology Changes from previous H/P or p: No Changes Cardiovascular: Chest Pain Respiratory: Shortness of breath Objective Vitals Vital Signs Date Time Temp Pulse Resp B/P (MAP) Pulse Ox O2 Delivery O2 Flow Rate FiO2 10/12/25 15:01 74 16 122/87 (99) 100 10/12/25 12:02 98.9 98.9 10/12/25 10:00 Nasal Cannula 1.0 10/12/25 10:00 24 Intake/Output Intake and Output 10/12/25 07:00 Intake Total 900 ml Balance 900 ml Intake Oral 750 ml IV Total 150 ml # Voids 7 # Bowel Movements 1 General Appearance: Alert, Oriented X3, Cooperative, No acute distress HEENT: Atraumatic, PERRLA, EOMI, Mucous membr. moist/pink Lungs: Clear to auscultation, Normal air movement Cardiovascular: Regular rate, Normal S1, Normal S2, No murmurs, Gallops, Rubs Abdomen: Normal bowel sounds, Soft, No tenderness Extremities: No edema Neuro: Cranial nerves 3-12 NL Psych/Mental Status: Mental status NL Medications Current Medications Medications Dose Ordered Sig/Yuli Route Start Time Stop Time Status Last Admin Dose Admin Atorvastatin Calcium 40 mg HS PO 10/03/25 22:00 10/11/25 21:48 40 MG Acetaminophen 650 mg Q6HP PRN PO 10/03/25 10:00 10/12/25 00:20 650 MG Ondansetron HCl 4 mg Q4HP PRN IV 10/03/25 10:00 Diagnostic Test (Pha) 1 strip ACHS 10/03/25 11:30 10/12/25 11:58 1 STRIP Insulin Human Regular ACHS SC 10/03/25 11:30 10/12/25 11:58 3 UNITS Dextrose 50 ml UD PRN IV 10/03/25 10:00 Brimonidine Tartrate 1 drop TID EACHEYE 10/03/25 14:00 10/12/25 14:17 1 DROP Gabapentin 800 mg TID PO 10/03/25 14:00 10/12/25 14:17 800 MG Colchicine 0.6 mg Q12HR PO 10/04/25 22:00 10/12/25 09:36 0.6 MG Metoprolol Succinate 50 mg DAILY PO 10/06/25 10:00 10/12/25 09:36 50 MG Levofloxacin/ Dextrose 100 ml @ 100 mls/hr DAILY IV 10/08/25 15:00 10/12/25 09:35 100 MLS/HR Patient Own Medication 320 DAILY SC 10/09/25 10:00 Hold Levalbuterol HCl 0.625 mg Q6HR NEB 10/09/25 15:45 UNV Acetylcysteine 100 mg Q6HR NEB 10/09/25 15:45 UNV Laboratory Results Laboratory Tests 10/11/25 19:25 Chemistry Test 10/11/25 19: Albumin 3.9 g/dL (3.2-4.8) Calcium Level 10.3 mg/dL (8.7-10.4) Total Protein 7.0 g/dL (5.7-8.2) LFT Test 10/11/25 19:25 Alanine Aminotransferase (ALT) 43 U/L (7-40) H Alkaline Phosphatase 93 U/L (46-116) Aspartate Amino Transferase (AST) 40 U/L (13-40) Total Bilirubin 0.2 mg/dL (0.2-1.0) Urinalysis Test 10/03/25 11:42 Urine Color Yellow (Yellow) Urine Clarity Turbid (Clear) H Urine pH 5.5 (5.0-9.0) Urine Specific [place] 1.025 (1.001-1.035) Urine Protein Trace (Negative) H Urine Ketones Negative (Negative) Urine Blood Negative /uL (Negative) Urine Nitrite Negative (Negative) Urine Bilirubin Negative (Negative) Urine Urobilinogen 4 mg/dL (Negative) H Urine Leukocyte Esterase 3+ /uL (Negative) Urine RBC 3 /hpf (0 - 4) Urine Microscopic WBC 113 /HPF (0-5) H Urine Squamous Epithelial Cells Few /hpf (<5) Urine Bacteria Few /hpf (None Seen) H Urine Glucose Normal mg/dL (Normal) Microbiology Microbiology Date/Time Source Procedure Growth Status 10/06/25 15:34 Blood Blood Culture - Final NO GROWTH AFTER 5 DAYS OF INCUBATION. Complete 10/04/25 11:42 Voided Urine Urine Culture - Final Complete 10/03/25 23:55 Nose MRSA Screen - Final Complete 10/03/25 16:50 Aspirate Gram Stain - Final Complete 10/03/25 16:50 Aspirate Body Fluid Culture - Final Complete Labs and/or images reviewed: Labs reviewed by me Assessment/Plan Assessment/Plan Pericardial effusion s/p pericardiocentesis x2. Status post removed 1.4L fluid from Pericardial fluid. History of pelvic mass resection Recurrent pericardial effusion Morbid obesity COPD Hypertension Type 2 diabetes UTI Atrial fibrillation with RVR now sinus tachycardia Plan Continuing current management. Continuing With IV antibiotic cefazolin. Continuing with colchicine. Continuing with metoprolol. Per fruit dumper's no need to start amiodarone yet. CA 19 9 and CEA is normal will follow up with repeat echo. LISSETTE is very minimal. Downgrade to telemetry We will get PT to encouraged the patient to be out of bed and ambulate with PT This medical document was created using an electronic medical record system with [employer] dictation system. Although this document has been carefully reviewed, there may still be some phonetic and typographical errors. These areas are purely typographical due to imperfections of the software programs, and do not reflect any compromise in the patient's medical care. This medical document was created using an electronic medical record system with [employer] dictation system. Although this document has been carefully reviewed, there may still be some phonetic and typographical errors. These areas are purely typographical due to imperfections of the software programs, and do not reflect any compromise in the patient's medical care. Plan discussed with: Patient My Orders Orders - LILY WELLS MD Procedure Category Date Status Time Pt Request For Service PT 10/11/25 Logged 16:45 Date of Service: Oct 12, 2025 Billing Provider: LILY WELLS MD Common Visit Codes: [id number] INP/OBS CARE(HIGH) LILY WELLS MD Oct 12, 2025 15:08
[2025-10-13] VITALS (14 sets, daily range): BP systolic 115–131; BP diastolic 60–83; PULSE 53–74; RESP 14–25; TEMP 97.8–98.8; O2SAT 93–100
--- NOTE | 2025-10-13 05:31 | DVH ---
MEDICAL RECORDS NUMBER: [id number] PROCEDURE: XY CHEST PORTABLE DATE: 10/13/2025 05:04 AM HISTORY: PEICARDIAL EFFUSION FU Views:1 COMPARISON: XY CHEST PORTABLE on DOS: 10/10/25, XY CHEST XRAY 1 VIEW on DOS: 10/09/25, XY CHEST XRAY 1 VIEW on DOS: 10/08/25, XY CHEST XRAY 1 VIEW on DOS: 10/07/25, XY CHEST PORTABLE on DOS: 10/06/25 FINDINGS/IMPRESSION: Lungs: The lungs are clear. Mediastinum: Mediastinal structures appear unremarkable... Skeletal: The skeletal structures appear unremarkable.
[2025-10-13 07:32] LABS: Hematocrit 36.1 % (36.0-46.0); Hemoglobin 11.7 g/dL (12.2-16.2); Mean Corpuscular Hemoglobin 28.7 pg (28.0-32.0); Mean Corpuscular Volume 88.7 fL (80.0-100.0); Nucleated Red Blood Cells % 0.1 %
[2025-10-13 07:39] LABS: Alkaline Phosphatase 82 U/L (46-116); Anion Gap 9 (5-15); BUN/Creatinine Ratio 18.8 (10.0-20.0); Blood Urea Nitrogen 15 mg/dL (9-23); Calcium 10.3 mg/dL (8.7-10.4); Carbon Dioxide 27 mmol/L (20-31); Chloride 106 mmol/L (98-107); Potassium 4.1 mmol/L (3.5-5.1); Sodium 142 mmol/L (136-145); Total Protein 7.0 g/dL (5.7-8.2)
[2025-10-13 07:40] LABS: Albumin 3.8 g/dL (3.2-4.8)
[2025-10-13 07:45] LABS: Alanine Aminotransferase 48 U/L (7-40); Bilirubin, Total 0.2 mg/dL (0.2-1.0); Glucose 115 mg/dL (74-106)
--- NOTE | 2025-10-13 12:00 | DVHPN2 ---
Subjective The patient seen and examined at bedside. The patient feel better today. LISSETTE output is minimal today. Reviewed: Care Plan, H&P, Labs, Medications, Previous Orders, Radiology Changes from previous H/P or p: No Changes Cardiovascular: Chest Pain Respiratory: Shortness of breath Objective Vitals Vital Signs Date Time Temp Pulse Resp B/P (MAP) Pulse Ox O2 Delivery O2 Flow Rate FiO2 10/13/25 10:48 65 121/61 10/13/25 10:00 96 Room Air* 0 21 10/13/25 07:30 25 10/13/25 00:00 98.8 98.8 Intake/Output Intake and Output 10/13/25 07:00 Intake Total 740 ml Balance 740 ml Intake Oral 640 ml IV Total 100 ml # Voids 8 # Bowel Movements 1 General Appearance: Alert, Oriented X3, Cooperative, No acute distress HEENT: Atraumatic, PERRLA, EOMI, Mucous membr. moist/pink Lungs: Clear to auscultation, Normal air movement Cardiovascular: Regular rate, Normal S1, Normal S2, No murmurs, Gallops, Rubs Abdomen: Normal bowel sounds, Soft, No tenderness Extremities: No edema Neuro: Cranial nerves 3-12 NL Psych/Mental Status: Mental status NL Medications Current Medications Medications Dose Ordered Sig/Yuli Route Start Time Stop Time Status Last Admin Dose Admin Atorvastatin Calcium 40 mg HS PO 10/03/25 22:00 10/12/25 22:48 40 MG Acetaminophen 650 mg Q6HP PRN PO 10/03/25 10:00 10/12/25 23:43 650 MG Ondansetron HCl 4 mg Q4HP PRN IV 10/03/25 10:00 Diagnostic Test (Pha) 1 strip ACHS 10/03/25 11:30 10/13/25 07:11 1 STRIP Insulin Human Regular ACHS SC 10/03/25 11:30 10/13/25 07:10 2 UNITS Dextrose 50 ml UD PRN IV 10/03/25 10:00 Brimonidine Tartrate 1 drop TID EACHEYE 10/03/25 14:00 10/13/25 06:00 1 DROP Gabapentin 800 mg TID PO 10/03/25 14:00 10/13/25 07:09 800 MG Colchicine 0.6 mg Q12HR PO 10/04/25 22:00 10/13/25 10:48 0.6 MG Metoprolol Succinate 50 mg DAILY PO 10/06/25 10:00 10/13/25 10:48 50 MG Levofloxacin/ Dextrose 100 ml @ 100 mls/hr DAILY IV 10/08/25 15:00 10/13/25 10:49 100 MLS/HR Patient Own Medication 320 DAILY SC 10/09/25 10:00 Hold Levalbuterol HCl 0.625 mg Q6HR NEB 10/09/25 15:45 UNV Acetylcysteine 100 mg Q6HR NEB 10/09/25 15:45 UNV Laboratory Results Laboratory Tests 10/13/25 05:04 Chemistry Test 10/13/25 05:04 Albumin 3.8 g/dL (3.2-4.8) Calcium Level 10.3 mg/dL (8.7-10.4) Total Protein 7.0 g/dL (5.7-8.2) LFT Test 10/13/25 05:04 Alanine Aminotransferase (ALT) 48 U/L (7-40) H Alkaline Phosphatase 82 U/L (46-116) Aspartate Amino Transferase (AST) 43 U/L (13-40) H Total Bilirubin 0.2 mg/dL (0.2-1.0) Urinalysis Test 10/03/25 11:42 Urine Color Yellow (Yellow) Urine Clarity Turbid (Clear) H Urine pH 5.5 (5.0-9.0) Urine Specific [place] 1.025 (1.001-1.035) Urine Protein Trace (Negative) H Urine Ketones Negative (Negative) Urine Blood Negative /uL (Negative) Urine Nitrite Negative (Negative) Urine Bilirubin Negative (Negative) Urine Urobilinogen 4 mg/dL (Negative) H Urine Leukocyte Esterase 3+ /uL (Negative) Urine RBC 3 /hpf (0 - 4) Urine Microscopic WBC 113 /HPF (0-5) H Urine Squamous Epithelial Cells Few /hpf (<5) Urine Bacteria Few /hpf (None Seen) H Urine Glucose Normal mg/dL (Normal) Microbiology Microbiology Date/Time Source Procedure Growth Status 10/06/25 15:34 Blood Blood Culture - Final NO GROWTH AFTER 5 DAYS OF INCUBATION. Complete 10/04/25 11:42 Voided Urine Urine Culture - Final Complete 10/03/25 23:55 Nose MRSA Screen - Final Complete 10/03/25 16:50 Aspirate Gram Stain - Final Complete 10/03/25 16:50 Aspirate Body Fluid Culture - Final Complete Assessment/Plan Assessment/Plan Pericardial effusion s/p pericardiocentesis x2. Status post removed 1.4L fluid from Pericardial fluid. History of pelvic mass resection Recurrent pericardial effusion Morbid obesity COPD Hypertension Type 2 diabetes UTI Atrial fibrillation with RVR now sinus tachycardia Plan Continuing current management. Continuing With IV antibiotic cefazolin. Continuing with colchicine. Continuing with metoprolol. Per art manager's no need to start amiodarone yet. CA 19 9 and CEA is normal will follow up with repeat echo. LISSETTE is very minimal. Downgrade to telemetry We will get PT to encouraged the patient to be out of bed and ambulate with PT LISSETTE removal by art manager Discharge planning. This medical document was created using an electronic medical record system with [employer] dictation system. Although this document has been carefully reviewed, there may still be some phonetic and typographical errors. These areas are purely typographical due to imperfections of the software programs, and do not reflect any compromise in the patient's medical care. This medical document was created using an electronic medical record system with [employer] dictation system. Although this document has been carefully reviewed, there may still be some phonetic and typographical errors. These areas are purely typographical due to imperfections of the software programs, and do not reflect any compromise in the patient's medical care. Plan discussed with: Patient My Orders Orders - LILY WELLS MD Procedure Category Date Status Time Chest Portable XY 10/13/25 Resulted 04:00 Date of Service: Oct 13, 2025 Billing Provider: LILY WELLS MD Common Visit Codes: [id number] INP/OBS CARE(HIGH) LILY WELLS MD Oct 13, 2025 12:00
--- NOTE | 2025-10-13 13:05 | DVHPN2 ---
Progress Note - Dictate Date Seen: Oct 13, 2025 Has the PT tested + for MRSA If YES, has PT been informed?: No Medical Necessity Reason Pt with a Central, PICC or Fol: No Subjective PT WITH HX OF PELVIC/ GI MALIGNANCY S/P RESECTION CT OF ABD PELVIS PENDING NOW WITH RECURRENT PERICARDIAL EFFUSION PT HAS HAD 3 [PERICARDIOCENTESIS WITH APPARENT PERICARDIAL WINDOW BUT NOW WITH PERICARDIAL EFFUSION WITH [facility] TOTAL OF 1500 CC HAS BEEN DRAINED REPEAT ECHO PENDING PT HAS NO INSIGHT TO HER DISEASE PROCESS MORBID OBESITY vital signs Vital Sign Date Time Temp Pulse Resp B/P (MAP) Pulse Ox O2 Delivery O2 Flow Rate FiO2 10/13/25 10:48 65 121/61 10/13/25 10:00 96 Room Air* 0 21 10/13/25 07:30 25 10/13/25 00:00 98.8 98.8 Total Intake and Output 10/12/25 10/12/25 10/13/25 15:00 23:00 07:00 Intake Total 100 ml 240 ml 400 ml Balance 100 ml 240 ml 400 ml medications Current Medications Medications Dose Ordered Sig/Yuli Route Start Time Stop Time Status Last Admin Dose Admin Atorvastatin Calcium 40 mg HS PO 10/03/25 22:00 10/12/25 22:48 40 MG Acetaminophen 650 mg Q6HP PRN PO 10/03/25 10:00 10/13/25 12:35 650 MG Ondansetron HCl 4 mg Q4HP PRN IV 10/03/25 10:00 Diagnostic Test (Pha) 1 strip ACHS 10/03/25 11:30 10/13/25 12:27 1 STRIP Insulin Human Regular ACHS SC 10/03/25 11:30 10/13/25 12:26 4 UNITS Dextrose 50 ml UD PRN IV 10/03/25 10:00 Brimonidine Tartrate 1 drop TID EACHEYE 10/03/25 14:00 10/13/25 06:00 1 DROP Gabapentin 800 mg TID PO 10/03/25 14:00 10/13/25 07:09 800 MG Colchicine 0.6 mg Q12HR PO 10/04/25 22:00 10/13/25 10:48 0.6 MG Metoprolol Succinate 50 mg DAILY PO 10/06/25 10:00 10/13/25 10:48 50 MG Levofloxacin/ Dextrose 100 ml @ 100 mls/hr DAILY IV 10/08/25 15:00 10/13/25 10:49 100 MLS/HR Patient Own Medication 320 DAILY SC 10/09/25 10:00 Hold Levalbuterol HCl 0.625 mg Q6HR NEB 10/09/25 15:45 UNV Acetylcysteine 100 mg Q6HR NEB 10/09/25 15:45 UNV laboratory and microbiology Laboratory Tests 10/13/25 05:04 Test 10/13/25 05:04 Range/Units Serum Glucose 115 H 74-106 mg/dL Problem List HX OF PELVIC/ GI MALIGNANCY S/P RESECTION CT OF ABD PELVIS PENDING NOW WITH RECURRENT PERICARDIAL EFFUSION PT HAS HAD 3 [PERICARDIOCENTESIS WITH APPARENT PERICARDIAL WINDOW BUT NOW WITH PERICARDIAL EFFUSION WITH [facility] TOTAL OF 1500 CC HAS BEEN DRAINED REPEAT ECHO PENDING PT HAS NO INSIGHT TO HER DISEASE PROCESS MORBID OBESITY Assessment/Plan PT WITH PERICARDIAL DRAIN REPEAT ECHO ABX CX OF FLUID NEGATIVE GRAM STAIN NEGATIVE CELL COUNT NO CONSISTENT WITH MALIGNANCY BUT MORE CONSISTENT WITH REACTIVE / INFLAMMATORY ETIOLOGY CYTOLOGY PENDING CHEMISTRY PENDING CONSIDER COLCHICINE AND RILONACEPT( FDA APPROVED) OR ANAKINRA ( NOT APPROVED YET) EPISODE OF TACHYCARDIA STARTED TOPROL XL DC PERICARDIAL DRAIN ECHO IN AM SMALL LOCULATED POSTERIOR EFFUSION ECHO 09/1025 STILL WITH SMALL POSTERIOR EFFUSION STILL COLCHICINE HAS NOT BEEN STARTED reposition catheter tomorrow HAD TO REINSERT PERICARDIOCENTESIS BALLOON DILATION FOR PERICARDIAL WINDOW START INTERLEUKIN 1 ANTAGONIST ARCALYST / PILONECEPT 160 MG SUBCQ BID X 2 DOSES GIVEN WEEKLY S/P REPEAT PERICARDIOCENTESIS 800 CC OF SEROUS FLUID DRAINED ECHO TODAY STILL WITH PERSISTENT POSTERIOR EFFUSION DC CATHETER ON MONDAY Dietary Evaluation Review Comments: Nutrition Recommendation: [facility] as [facility] feasible 2) Monitor NPO status, lab values, weight trend, and I/O Expected Outcomes/Goals: Intake to meet >75% estimated needs Lab values to improve FU 2-3 days Plan discussed with: Patient Critical Care Time(min): 35 COLLETTE RODRIGUEZ MD Oct 13, 2025 13:05
[2025-10-14] VITALS (14 sets, daily range): BP systolic 105–141; BP diastolic 54–90; PULSE 48–81; RESP 10–20; TEMP 97.9–98.4; O2SAT 89–100
[2025-10-14 06:46] LABS: Hemoglobin 12.3 g/dL (12.2-16.2)
[2025-10-14 06:47] LABS: Albumin 3.9 g/dL (3.2-4.8); Alkaline Phosphatase 82 U/L (46-116); Anion Gap 9 (5-15); Calcium 10.3 mg/dL (8.7-10.4); Carbon Dioxide 28 mmol/L (20-31); Chloride 106 mmol/L (98-107); Sodium 143 mmol/L (136-145); Total Protein 7.3 g/dL (5.7-8.2)
[2025-10-14 06:48] LABS: Hematocrit 38.0 % (36.0-46.0); Mean Corpuscular Hemoglobin 28.9 pg (28.0-32.0); Mean Corpuscular Volume 89.2 fL (80.0-100.0); Nucleated Red Blood Cells % 0.2 %
[2025-10-14 06:52] LABS: Bilirubin, Total 0.2 mg/dL (0.2-1.0); Glucose 110 mg/dL (74-106)
[2025-10-14 06:54] LABS: Alanine Aminotransferase 45 U/L (7-40); BUN/Creatinine Ratio 16.7 (10.0-20.0); Blood Urea Nitrogen 14 mg/dL (9-23); Potassium 4.8 mmol/L (3.5-5.1)
--- NOTE | 2025-10-14 14:34 | DVHPN2 ---
Progress Note - Dictate Date Seen: Oct 14, 2025 Has the PT tested + for MRSA If YES, has PT been informed?: No Medical Necessity Reason Pt with a Central, PICC or Fol: No Subjective PT WITH HX OF PELVIC/ GI MALIGNANCY S/P RESECTION CT OF ABD PELVIS PENDING NOW WITH RECURRENT PERICARDIAL EFFUSION PT HAS HAD 3 [PERICARDIOCENTESIS WITH APPARENT PERICARDIAL WINDOW BUT NOW WITH PERICARDIAL EFFUSION WITH [facility] TOTAL OF 1500 CC HAS BEEN DRAINED REPEAT ECHO PENDING PT HAS NO INSIGHT TO HER DISEASE PROCESS MORBID OBESITY vital signs Vital Sign Date Time Temp Pulse Resp B/P (MAP) Pulse Ox O2 Delivery O2 Flow Rate FiO2 10/14/25 12:00 75 10/14/25 12:00 98.1 10 105/69 (81) 99 98.1 10/14/25 10:00 Room Air 0.0 10/14/25 10:00 21 Total Intake and Output 10/13/25 10/13/25 10/14/25 15:00 23:00 07:00 Intake Total 100 ml 900 ml Output Total 0 ml Balance 100 ml 900 ml 0 ml medications Current Medications Medications Dose Ordered Sig/Yuli Route Start Time Stop Time Status Last Admin Dose Admin Atorvastatin Calcium 40 mg HS PO 10/03/25 22:00 10/13/25 21:55 40 MG Acetaminophen 650 mg Q6HP PRN PO 10/03/25 10:00 10/13/25 12:35 650 MG Ondansetron HCl 4 mg Q4HP PRN IV 10/03/25 10:00 Diagnostic Test (Pha) 1 strip ACHS 10/03/25 11:30 10/14/25 12:07 1 STRIP Insulin Human Regular ACHS SC 10/03/25 11:30 10/14/25 12:09 3 UNITS Dextrose 50 ml UD PRN IV 10/03/25 10:00 Brimonidine Tartrate 1 drop TID EACHEYE 10/03/25 14:00 10/14/25 07:05 1 DROP Gabapentin 800 mg TID PO 10/03/25 14:00 10/14/25 07:02 800 MG Colchicine 0.6 mg Q12HR PO 10/04/25 22:00 10/14/25 10:45 0.6 MG Metoprolol Succinate 50 mg DAILY PO 10/06/25 10:00 10/14/25 10:48 50 MG Levofloxacin/ Dextrose 100 ml @ 100 mls/hr DAILY IV 10/08/25 15:00 10/14/25 10:45 100 MLS/HR Patient Own Medication 320 DAILY SC 10/09/25 10:00 Hold Levalbuterol HCl 0.625 mg Q6HR NEB 10/09/25 15:45 UNV Acetylcysteine 100 mg Q6HR NEB 10/09/25 15:45 UNV laboratory and microbiology Laboratory Tests 10/14/25 05:15 Test 10/14/25 05:15 Range/Units Serum Glucose 110 H 74-106 mg/dL Problem List HX OF PELVIC/ GI MALIGNANCY S/P RESECTION CT OF ABD PELVIS PENDING NOW WITH RECURRENT PERICARDIAL EFFUSION PT HAS HAD 3 [PERICARDIOCENTESIS WITH APPARENT PERICARDIAL WINDOW BUT NOW WITH PERICARDIAL EFFUSION WITH [facility] TOTAL OF 1500 CC HAS BEEN DRAINED REPEAT ECHO PENDING PT HAS NO INSIGHT TO HER DISEASE PROCESS MORBID OBESITY Assessment/Plan PT WITH PERICARDIAL DRAIN REPEAT ECHO ABX CX OF FLUID NEGATIVE GRAM STAIN NEGATIVE CELL COUNT NO CONSISTENT WITH MALIGNANCY BUT MORE CONSISTENT WITH REACTIVE / INFLAMMATORY ETIOLOGY CYTOLOGY PENDING CHEMISTRY PENDING CONSIDER COLCHICINE AND RILONACEPT( FDA APPROVED) OR ANAKINRA ( NOT APPROVED YET) EPISODE OF TACHYCARDIA STARTED TOPROL XL DC PERICARDIAL DRAIN ECHO IN AM SMALL LOCULATED POSTERIOR EFFUSION ECHO 09/1025 STILL WITH SMALL POSTERIOR EFFUSION STILL COLCHICINE HAS NOT BEEN STARTED reposition catheter tomorrow HAD TO REINSERT PERICARDIOCENTESIS BALLOON DILATION FOR PERICARDIAL WINDOW START INTERLEUKIN 1 ANTAGONIST ARCALYST / PILONECEPT WAS NOT GIVEN IN THE HOSPITAL 160 MG SUBCQ BID X 2 DOSES GIVEN WEEKLY S/P REPEAT PERICARDIOCENTESIS 800 CC OF SEROUS FLUID DRAINED ECHO TODAY STILL WITH PERSISTENT POSTERIOR EFFUSION DCed CATHETER AMBULATE PT CONT COLCHICINE Dietary Evaluation Review Comments: [facility]ation: [facility] 2) Monitor NPO status, lab values, weight trend, and I/O Expected Outcomes/Goals: Intake to meet >75% estimated needs Lab values to improve FU 2-3 days Plan discussed with: Patient Critical Care Time(min): 35 COLLETTE RODRIGUEZ MD Oct 14, 2025 14:33
--- NOTE | 2025-10-14 16:26 | DVHPN2 ---
Subjective The patient seen and examined at bedside. The patient feel better today. LISSETTE drain out since yesterday. Reviewed: Care Plan, H&P, Labs, Medications, Previous Orders, Radiology Changes from previous H/P or p: No Changes Cardiovascular: Chest Pain Respiratory: Shortness of breath Objective Vitals Vital Signs Date Time Temp Pulse Resp B/P (MAP) Pulse Ox O2 Delivery O2 Flow Rate FiO2 10/14/25 16:00 98.1 55 12 141/54 (83) 99 98.1 10/14/25 10:00 Room Air 0.0 10/14/25 10:00 21 Intake/Output Intake and Output 10/14/25 07:00 Intake Total 1000 ml Output Total 0 ml Balance 1000 ml Intake Oral 900 ml IV Total 100 ml Stool Total 0 ml # Voids 11 # Bowel Movements 1 General Appearance: Alert, Oriented X3, Cooperative, No acute distress HEENT: Atraumatic, PERRLA, EOMI, Mucous membr. moist/pink Lungs: Clear to auscultation, Normal air movement Cardiovascular: Regular rate, Normal S1, Normal S2, No murmurs, Gallops, Rubs Abdomen: Normal bowel sounds, Soft, No tenderness Extremities: No edema Neuro: Cranial nerves 3-12 NL Psych/Mental Status: Mental status NL Medications Current Medications Medications Dose Ordered Sig/Yuli Route Start Time Stop Time Status Last Admin Dose Admin Atorvastatin Calcium 40 mg HS PO 10/03/25 22:00 10/13/25 21:55 40 MG Acetaminophen 650 mg Q6HP PRN PO 10/03/25 10:00 10/13/25 12:35 650 MG Ondansetron HCl 4 mg Q4HP PRN IV 10/03/25 10:00 Diagnostic Test (Pha) 1 strip ACHS 10/03/25 11:30 10/14/25 12:07 1 STRIP Insulin Human Regular ACHS SC 10/03/25 11:30 10/14/25 12:09 3 UNITS Dextrose 50 ml UD PRN IV 10/03/25 10:00 Brimonidine Tartrate 1 drop TID EACHEYE 10/03/25 14:00 10/14/25 14:47 1 DROP Gabapentin 800 mg TID PO 10/03/25 14:00 10/14/25 14:47 800 MG Colchicine 0.6 mg Q12HR PO 10/04/25 22:00 10/14/25 10:45 0.6 MG Metoprolol Succinate 50 mg DAILY PO 10/06/25 10:00 10/14/25 10:48 50 MG Levofloxacin/ Dextrose 100 ml @ 100 mls/hr DAILY IV 10/08/25 15:00 10/14/25 10:45 100 MLS/HR Patient Own Medication 320 DAILY SC 10/09/25 10:00 Hold Levalbuterol HCl 0.625 mg Q6HR NEB 10/09/25 15:45 UNV Acetylcysteine 100 mg Q6HR NEB 10/09/25 15:45 UNV Laboratory Results Laboratory Tests 10/14/25 05:15 Chemistry Test 10/14/25 05:15 Albumin 3.9 g/dL (3.2-4.8) Calcium Level 10.3 mg/dL (8.7-10.4) Total Protein 7.3 g/dL (5.7-8.2) LFT Test 10/14/25 05:15 Alanine Aminotransferase (ALT) 45 U/L (7-40) H Alkaline Phosphatase 82 U/L (46-116) Aspartate Amino Transferase (AST) 55 U/L (13-40) H Total Bilirubin 0.2 mg/dL (0.2-1.0) Urinalysis Test 10/03/25 11:42 Urine Color Yellow (Yellow) Urine Clarity Turbid (Clear) H Urine pH 5.5 (5.0-9.0) Urine Specific [place] 1.025 (1.001-1.035) Urine Protein Trace (Negative) H Urine Ketones Negative (Negative) Urine Blood Negative /uL (Negative) Urine Nitrite Negative (Negative) Urine Bilirubin Negative (Negative) Urine Urobilinogen 4 mg/dL (Negative) H Urine Leukocyte Esterase 3+ /uL (Negative) Urine RBC 3 /hpf (0 - 4) Urine Microscopic WBC 113 /HPF (0-5) H Urine Squamous Epithelial Cells Few /hpf (<5) Urine Bacteria Few /hpf (None Seen) H Urine Glucose Normal mg/dL (Normal) Microbiology Microbiology Date/Time Source Procedure Growth Status 10/06/25 15:34 Blood Blood Culture - Final NO GROWTH AFTER 5 DAYS OF INCUBATION. Complete 10/04/25 11:42 Voided Urine Urine Culture - Final Complete 10/03/25 23:55 Nose MRSA Screen - Final Complete 10/03/25 16:50 Aspirate Gram Stain - Final Complete 10/03/25 16:50 Aspirate Body Fluid Culture - Final Complete Labs and/or images reviewed: Labs reviewed by me Assessment/Plan Assessment/Plan Pericardial effusion s/p pericardiocentesis x2. Status post removed 1.4L fluid from Pericardial fluid. History of pelvic mass resection Recurrent pericardial effusion Morbid obesity COPD Hypertension Type 2 diabetes UTI Atrial fibrillation with RVR now sinus tachycardia Plan Continuing current management. Continuing With IV antibiotic cefazolin. Continuing with colchicine. Continuing with metoprolol. Per scorekeeper's no need to start amiodarone yet. CA 19 9 and CEA is normal will follow up with repeat echo. LISSETTE is out. Downgrade to telemetry We will get PT to encouraged the patient to be out of bed and ambulate with PT LISSETTE removal by scorekeeper Discharge planning when clear by dr Mesa. This medical document was created using an electronic medical record system with [employer] dictation system. Although this document has been carefully reviewed, there may still be some phonetic and typographical errors. These areas are purely typographical due to imperfections of the software programs, and do not reflect any compromise in the patient's medical care. This medical document was created using an electronic medical record system with [employer] dictation system. Although this document has been carefully reviewed, there may still be some phonetic and typographical errors. These areas are purely typographical due to imperfections of the software programs, and do not reflect any compromise in the patient's medical care. Plan discussed with: Patient Date of Service: Oct 14, 2025 Billing Provider: LILY WELLS MD Common Visit Codes: [id number] INP/OBS CARE(HIGH) LILY WELLS MD Oct 14, 2025 16:26
[2025-10-15] VITALS (13 sets, daily range): BP systolic 106–131; BP diastolic 62–74; PULSE 46–78; RESP 13–23; TEMP 97.9–99.2; O2SAT 91–100
[2025-10-15] MEDS ORDERED: COLC1CAP PO (11:59)
[2025-10-15] MEDS ORDERED: ATOR-507 PO (11:59)
--- NOTE | 2025-10-15 12:01 | DVHPN2 ---
Subjective The patient seen and examined at bedside. The patient feel better today. LISSETTE drain out since yesterday. Reviewed: Care Plan, H&P, Labs, Medications, Previous Orders, Radiology Cardiovascular: Chest Pain Respiratory: Shortness of breath Objective Vitals Vital Signs Date Time Temp Pulse Resp B/P (MAP) Pulse Ox O2 Delivery O2 Flow Rate FiO2 10/15/25 11:53 97.9 56 14 119/70 (86) 98 97.9 10/15/25 10:00 Room Air* 0 21 Intake/Output Intake and Output 10/15/25 07:00 Intake Total 1020 ml Balance 1020 ml Intake Oral 920 ml IV Total 100 ml # Voids 5 # Bowel Movements 2 General Appearance: Alert, Oriented X3, Cooperative, No acute distress HEENT: Atraumatic, PERRLA, EOMI, Mucous membr. moist/pink Lungs: Clear to auscultation, Normal air movement Cardiovascular: Regular rate, Normal S1, Normal S2, No murmurs, Gallops, Rubs Abdomen: Normal bowel sounds, Soft, No tenderness Extremities: No edema Neuro: Cranial nerves 3-12 NL Psych/Mental Status: Mental status NL Medications Current Medications Medications Dose Ordered Sig/Yuli Route Start Time Stop Time Status Last Admin Dose Admin Atorvastatin Calcium 40 mg HS PO 10/03/25 22:00 10/14/25 21:43 40 MG Acetaminophen 650 mg Q6HP PRN PO 10/03/25 10:00 10/13/25 12:35 650 MG Ondansetron HCl 4 mg Q4HP PRN IV 10/03/25 10:00 Diagnostic Test (Pha) 1 strip ACHS 10/03/25 11:30 10/15/25 11:45 1 STRIP Insulin Human Regular ACHS SC 10/03/25 11:30 10/15/25 11:49 4 UNITS Dextrose 50 ml UD PRN IV 10/03/25 10:00 Brimonidine Tartrate 1 drop TID EACHEYE 10/03/25 14:00 10/15/25 06:02 1 DROP Gabapentin 800 mg TID PO 10/03/25 14:00 10/15/25 06:02 800 MG Colchicine 0.6 mg Q12HR PO 10/04/25 22:00 10/15/25 08:47 0.6 MG Metoprolol Succinate 50 mg DAILY PO 10/06/25 10:00 10/15/25 08:48 50 MG Levofloxacin/ Dextrose 100 ml @ 100 mls/hr DAILY IV 10/08/25 15:00 10/15/25 08:47 100 MLS/HR Patient Own Medication 320 DAILY SC 10/09/25 10:00 Hold Levalbuterol HCl 0.625 mg Q6HR NEB 10/09/25 15:45 UNV Acetylcysteine 100 mg Q6HR NEB 10/09/25 15:45 UNV Laboratory Results Laboratory Tests 10/14/25 05:15 Urinalysis Test 10/03/25 11:42 Urine Color Yellow (Yellow) Urine Clarity Turbid (Clear) H Urine pH 5.5 (5.0-9.0) Urine Specific [place] 1.025 (1.001-1.035) Urine Protein Trace (Negative) H Urine Ketones Negative (Negative) Urine Blood Negative /uL (Negative) Urine Nitrite Negative (Negative) Urine Bilirubin Negative (Negative) Urine Urobilinogen 4 mg/dL (Negative) H Urine Leukocyte Esterase 3+ /uL (Negative) Urine RBC 3 /hpf (0 - 4) Urine Microscopic WBC 113 /HPF (0-5) H Urine Squamous Epithelial Cells Few /hpf (<5) Urine Bacteria Few /hpf (None Seen) H Urine Glucose Normal mg/dL (Normal) Microbiology Microbiology Date/Time Source Procedure Growth Status 10/06/25 15:34 Blood Blood Culture - Final NO GROWTH AFTER 5 DAYS OF INCUBATION. Complete 10/04/25 11:42 Voided Urine Urine Culture - Final Complete 10/03/25 23:55 Nose MRSA Screen - Final Complete 10/03/25 16:50 Aspirate Gram Stain - Final Complete 10/03/25 16:50 Aspirate Body Fluid Culture - Final Complete Assessment/Plan Assessment/Plan Pericardial effusion s/p pericardiocentesis x2. Status post removed 1.4L fluid from Pericardial fluid. History of pelvic mass resection Recurrent pericardial effusion Morbid obesity COPD Hypertension Type 2 diabetes UTI Atrial fibrillation with RVR now sinus tachycardia Plan Continuing current management. Continuing With IV antibiotic cefazolin. Continuing with colchicine. Continuing with metoprolol. Per filling machine tender's no need to start amiodarone yet. CA 19 9 and CEA is normal will follow up with repeat echo. LISSETTE is out. Downgrade to telemetry We will get PT to encouraged the patient to be out of bed and ambulate with PT LISSETTE removal by filling machine tender Discharge planning when clear by dr Mesa. This medical document was created using an electronic medical record system with [employer] dictation system. Although this document has been carefully reviewed, there may still be some phonetic and typographical errors. These areas are purely typographical due to imperfections of the software programs, and do not reflect any compromise in the patient's medical care. This medical document was created using an electronic medical record system with [employer] dictation system. Although this document has been carefully reviewed, there may still be some phonetic and typographical errors. These areas are purely typographical due to imperfections of the software programs, and do not reflect any compromise in the patient's medical care. My Orders Orders - LILY WELLS MD Procedure Category Date Status Time Discharge DISCHARGE 10/15/25 Verified 11:59 LILY WELLS MD Oct 15, 2025 12:01
--- NOTE | 2025-10-15 12:01 | DVHDS2 ---
Discharge Summary Date of Admission Oct 03, 2025 at 09:56 Date of Discharge: Oct 15, 2025 Admitting Diagnosis Pericardial effusion s/p pericardiocentesis . History of pelvic mass resection Recurrent pericardial effusion Morbid obesity COPD Hypertension Type 2 diabetes UTI Atrial fibrillation with RVR now sinus tachycardia Labs/Diagnostic Data: Laboratory Results Test 10/15/25 06:35 10/14/25 05:15 10/08/25 05:18 10/06/25 05:22 POC Glucose 133 mg/dl (70-106) White Blood Count 5.8 10^3/uL (4.4-10.8) Red Blood Count 4.26 10^6/uL (4.0-5.20) Hemoglobin 12.3 g/dL (12.2-16.2) Hematocrit 38.0 % (36.0-46.0) Mean Corpuscular Volume 89.2 fL (80.0-100.0) Mean Corpuscular Hemoglobin 28.9 pg (28.0-32.0) Mean Corpuscular Hemoglobin Concent 32.4 g/dL (32.0-36.0) Red Cell Distribution Width 13.1 % (11.8-14.3) Platelet Count 446 10^3/uL (140-450) Mean Platelet Volume 8.8 fL (6.9-10.8) Neutrophils (%) (Auto) 51.4 % (37.0-80.0) Lymphocytes (%) (Auto) 33.3 % (10.0-50.0) Monocytes (%) (Auto) 7.5 % (0.0-12.0) Eosinophils (%) (Auto) 6.4 % (0.0-7.0) Basophils (%) (Auto) 1.4 % (0.0-2.0) Neutrophils # (Auto) 3.0 10 ^3/uL (1.6-8.6) Lymphocytes # (Auto) 1.9 10 ^3/uL (0.4-5.4) Monocytes # (Auto) 0.4 10 ^3/uL (0-1.3) Eosinophils # (Auto) 0.4 10 ^3/uL (0-0.8) Basophils # (Auto) 0.1 10 ^3/uL (0-0.2) Nucleated Red Blood Cells 0.2 % Sodium Level 143 mmol/L (136-145) Potassium Level 4.8 mmol/L (3.5-5.1) Chloride Level 106 mmol/L (98-107) Carbon Dioxide Level 28 mmol/L (20-31) Anion Gap 9 (5-15) Blood Urea Nitrogen 14 mg/dL (9-23) Creatinine 0.84 mg/dL (0.550-1.02) Glomerular Filtration Rate Calc 78 mL/min (>90) BUN/Creatinine Ratio 16.7 (10.0-20.0) Serum Glucose 110 mg/dL (74-106) Calcium Level 10.3 mg/dL (8.7-10.4) Total Bilirubin 0.2 mg/dL (0.2-1.0) Aspartate Amino Transferase (AST) 55 U/L (13-40) Alanine Aminotransferase (ALT) 45 U/L (7-40) Alkaline Phosphatase 82 U/L (46-116) Total Protein 7.3 g/dL (5.7-8.2) Albumin 3.9 g/dL (3.2-4.8) Prothrombin Time 11.1 sec (9.3-11.8) Prothrombin Time INR 1.05 (0.9-1.15) Activated Partial Thromboplast Time 30.1 SEC (24.5-34.5) Magnesium Level 2.3 mg/dL (1.6-2.6) Test 10/05/25 15:42 10/04/25 16:13 10/04/25 06:13 10/03/25 16:50 Troponin I High Sensitivity 19 ng/L (</=34) CA 125 Antigen 5.5 U/mL (0.0-38.1) Triglycerides Level 78 mg/dL (< 150) Cholesterol Level 140 mg/dL (< 200) LDL Cholesterol 56 mg/dL (< 100) HDL Cholesterol 60 mg/dL (40-59) Body Fluid Source Pericardial fluid Body Fluid WBC (Manual) 4207 CUMM (0-200) Body Fluid RBC (Manual) 77470 CUMM (0-2000) Body Fluid Mononuclear Cells 5 % Body Fluid Polymorphonuclear Cells 95 % (0-25) Body Fluid Glucose 145 mg/dL (.) Body Fluid Total Protein 6.2 g/dL (.) Body Fluid Lactate Dehydrogenase 363 IU/L (.) Test 10/03/25 13:38 10/03/25 12:33 11/7/25 11:42 10/03/25 08:58 Carcinoembryonic Antigen < 0.50 ng/mL (<=5.0) CA 19-9 Antigen 5 U/mL (0-35) Urine Color Yellow (Yellow) Urine Clarity Turbid (Clear) Urine pH 5.5 (5.0-9.0) Urine Specific [place] 1.025 (1.001-1.035) Urine Protein Trace (Negative) Urine Ketones Negative (Negative) Urine Blood Negative /uL (Negative) Urine Nitrite Negative (Negative) Urine Bilirubin Negative (Negative) Urine Urobilinogen 4 mg/dL (Negative) Urine Leukocyte Esterase 3+ /uL (Negative) Urine RBC 3 /hpf (0 - 4) Urine Microscopic WBC 113 /HPF (0-5) Urine Squamous Epithelial Cells Few /hpf (<5) Urine Bacteria Few /hpf (None Seen) Urine Glucose Normal mg/dL (Normal) Urine Opiates Screen Neg (NEGATIVE) Urine Fentanyl Screen Neg (NEGATIVE) Urine Barbiturates Screen Neg (NEGATIVE) Urine Phencyclidine Screen Neg (NEGATIVE) Urine Amphetamines Screen Neg (NEGATIVE) Urine Benzodiazepines Screen Neg (NEGATIVE) Urine Cocaine Screen Neg (NEGATIVE) Urine Cannabinoids Screen Neg (NEGATIVE) Hemoglobin A1c 6.4 % A1C (<5.7) B-Type Natriuretic Peptide 75.62 pg/mL (0-100) Thyroid Stimulating Hormone (TSH) 1.61 uIU/mL (0.55-4.78) Free Thyroxine (T4) Calculated 1.32 ng/dL (0.89-1.76) Other Laboratory Tests 10/14/25 05:15 Brief Hx & Hospital Course: This is a 65 years old female with past medical history of congestive heart failure, COPD, diabetes, hyperlipidemia, hypertension, cardiac window in [address] [facility], fibroid surgery, . The patient presented with severe shortness of breath and chest pain. It appears as though the patient has significant pericardial effusion. This is the third time that she had had a pericardial effusion and she has had pericardiocentesis on several occasions followed by pericardial window. The patient with a remote history of cancer of the pelvis. It is not clear, whether it is ovarian, uterine, or even colonic at this time. The patient apparently about 5 years ago had complete resection of the abdomen and was told that she may have been cancer-free. It was surgically resected. But it is not clear. This time the patient had two pericardiocentesis, the 1st time 7 mL of fluid was removed. The 2nd time was 1.4 L of fluid was removed. LISSETTE drain finally put out no fluid so the LISSETTE drain had been removed couple days ago. Per sr. manager marketing's the patient should have a PET scan as an outpatient. CA 125 and CA19-9 strong and was negative. CT scan abdomen pelvis in the hospital showed No abdominal or pelvic lymphadenopathy or mass. Right upper abdominal approach drain terminating in the dome of segment 2 of the liver. This is possibly meant to be a pericardial drain. Correlate with procedural history. Small to moderate partially loculated pericardial effusion. Mild cardiomegaly. Small bilateral pleural effusions and mild dependent atelectasis in the bilateral lower lobes. Severe atrophy of the left kidney. Mild colonic diverticulosis.The patient was put on colchicine 0.6 mg twice per day per sr. manager marketing's recommendation. Patient had no shortness for breath and chest pain today. The patient ambulate without shortness for breath. The patient will be discharged home today. Advised the patient to follow up with her primary care physician 1-2 weeks. Follow up with sr. manager marketing per schedule. Activity as tolerated. Diet low-salt low-cholesterol diet. Physical exam: HEENT: Normocephalic atraumatic pupils equal react to light and accommodation. Extraocular muscles intact, conjunctiva pink, oropharynx moist, no thrush, no exudate. Lymphatic: No lymphadenopathy Cardiovascular exam: S1, S2 was heard. No murmurs, rubs, gallops Lung: Clear on auscultation bilaterally, no wheeze, rale, rhonchi. GI: Abdominal soft, nondistended, nontenderness, positive bowel sounds. Extremity: No crepitus, cyanosis, edema. Pedal pulses present bilateral. Full range of motion. Skin: Normal turgor, no rash. Psych: Alert, oriented x3. Neurology: No focal deficits, cranial nerve II to XII grossly intact. This medical document was created using an electronic medical record system with [employer] computerized dictation system. Although this document has been carefully reviewed, there may still be some phonetic and typographical errors. These areas are purely typographical due to imperfections of the software programs, and do not reflect any compromise in the patient's medical care. Condition at Discharge: Stable Final Diagnosis/Problems List Pericardial effusion s/p pericardiocentesis x3. Status post removed 1.4L fluid from Pericardial fluid. History of pelvic mass resection Recurrent pericardial effusion Morbid obesity COPD Hypertension Type 2 diabetes UTI Atrial fibrillation with RVR now sinus tachycardi Discharge Disposition: Home Discharge Instruct/Medications Diet: Cardiac 2g Na,low cholest Activity: No Restrictions, As Tolerated Follow Up/Referral: pcp 1-[address] Mesa per schedule Scheduled Allopurinol (Allopurinol), 1 TAB PO DAILY, (Reported) Atorvastatin Calcium (Lipitor), 1 TAB PO QPM Brimonidine Tartrate (Brimonidine Tartrate), 1 DROP EACHEYE TID, (Reported) Colchicine (Colchicine), 0.6 MG PO BID Gabapentin (Gabapentin), 1 TAB PO TID, (Reported) Hctz (Hydrochlorothiazide), 25 MG PO DAILY, (Reported) Lisinopril (Lisinopril), 5 MG PO DAILY Metformin Hydrochloride (Metformin Hcl), 500 MG PO IBID, (Reported) Metoprolol Succinate (Metoprolol Succinate Er), 1 TAB PO DAILY, (Reported) Scheduled PRN Furosemide (Furosemide), 1 TAB PO DAILYPRN PRN Discharge Statement: "Patient was advised to return to the ER or call 911 if any headaches, dizziness, shortness of breath, chest pain, abdominal pain, bleeding, fevers, or worsening of medical condition. Patient was counseled about treatment plan, medications, possible side effects, patientverbalized understanding. All questions were answered to the best of my ability. This discharge took greater then 30 minutes in planning, reviewing documentation, counseling the patient, and discussing with other team members." ASSESSMENT ASSESSMENT Assessment pericardial effusion Date of Service: Oct 15, 2025 Billing Provider: LILY WELLS MD Common Visit Codes: [id number] DISCH DAY >30min LILY WELLS MD Oct 15, 2025 12:01
--- NOTE | 2025-10-15 13:43 | DVHPN2 ---
Progress Note - Dictate Date Seen: Oct 12, 2025 Has the PT tested + for MRSA If YES, has PT been informed?: No Medical Necessity Reason Pt with a Central, PICC or Fol: No Subjective PT WITH HX OF PELVIC/ GI MALIGNANCY S/P RESECTION CT OF ABD PELVIS PENDING NOW WITH RECURRENT PERICARDIAL EFFUSION PT HAS HAD 3 [PERICARDIOCENTESIS WITH APPARENT PERICARDIAL WINDOW BUT NOW WITH PERICARDIAL EFFUSION WITH [facility] TOTAL OF 1500 CC HAS BEEN DRAINED REPEAT ECHO PENDING PT HAS NO INSIGHT TO HER DISEASE PROCESS MORBID OBESITY vital signs Vital Sign Date Time Temp Pulse Resp B/P (MAP) Pulse Ox O2 Delivery O2 Flow Rate FiO2 10/15/25 11:53 97.9 56 14 119/70 (86) 98 97.9 10/15/25 10:00 Room Air* 0 21 Total Intake and Output 10/14/25 10/14/25 10/15/25 15:00 23:00 07:00 Intake Total 100 ml 480 ml 440 ml Balance 100 ml 480 ml 440 ml medications Current Medications Medications Dose Ordered Sig/Yuli Route Start Time Stop Time Status Last Admin Dose Admin Atorvastatin Calcium 40 mg HS PO 10/03/25 22:00 10/14/25 21:43 40 MG Acetaminophen 650 mg Q6HP PRN PO 10/03/25 10:00 10/13/25 12:35 650 MG Ondansetron HCl 4 mg Q4HP PRN IV 10/03/25 10:00 Diagnostic Test (Pha) 1 strip ACHS 10/03/25 11:30 10/15/25 11:45 1 STRIP Insulin Human Regular ACHS SC 10/03/25 11:30 10/15/25 11:49 4 UNITS Dextrose 50 ml UD PRN IV 10/03/25 10:00 Brimonidine Tartrate 1 drop TID EACHEYE 10/03/25 14:00 10/15/25 06:02 1 DROP Gabapentin 800 mg TID PO 10/03/25 14:00 10/15/25 06:02 800 MG Colchicine 0.6 mg Q12HR PO 10/04/25 22:00 10/15/25 08:47 0.6 MG Metoprolol Succinate 50 mg DAILY PO 10/06/25 10:00 10/15/25 08:48 50 MG Levofloxacin/ Dextrose 100 ml @ 100 mls/hr DAILY IV 10/08/25 15:00 10/15/25 08:47 100 MLS/HR Patient Own Medication 320 DAILY SC 10/09/25 10:00 Hold Levalbuterol HCl 0.625 mg Q6HR NEB 10/09/25 15:45 UNV Acetylcysteine 100 mg Q6HR NEB 10/09/25 15:45 UNV laboratory and microbiology Laboratory Tests 10/14/25 05:15 Test 10/14/25 05:15 Range/Units Serum Glucose 110 H 74-106 mg/dL Problem List HX OF PELVIC/ GI MALIGNANCY S/P RESECTION CT OF ABD PELVIS PENDING NOW WITH RECURRENT PERICARDIAL EFFUSION PT HAS HAD 3 [PERICARDIOCENTESIS WITH APPARENT PERICARDIAL WINDOW BUT NOW WITH PERICARDIAL EFFUSION WITH [facility] TOTAL OF 1500 CC HAS BEEN DRAINED REPEAT ECHO PENDING PT HAS NO INSIGHT TO HER DISEASE PROCESS MORBID OBESITY Assessment/Plan PT WITH PERICARDIAL DRAIN REPEAT ECHO ABX CX OF FLUID NEGATIVE GRAM STAIN NEGATIVE CELL COUNT NO CONSISTENT WITH MALIGNANCY BUT MORE CONSISTENT WITH REACTIVE / INFLAMMATORY ETIOLOGY CYTOLOGY PENDING CHEMISTRY PENDING CONSIDER COLCHICINE AND RILONACEPT( FDA APPROVED) OR ANAKINRA ( NOT APPROVED YET) EPISODE OF TACHYCARDIA STARTED TOPROL XL DC PERICARDIAL DRAIN ECHO IN AM SMALL LOCULATED POSTERIOR EFFUSION ECHO 09/1025 STILL WITH SMALL POSTERIOR EFFUSION STILL COLCHICINE HAS NOT BEEN STARTED reposition catheter tomorrow HAD TO REINSERT PERICARDIOCENTESIS BALLOON DILATION FOR PERICARDIAL WINDOW START INTERLEUKIN 1 ANTAGONIST ARCALYST / PILONECEPT WAS NOT GIVEN IN THE HOSPITAL 160 MG SUBCQ BID X 2 DOSES GIVEN WEEKLY S/P REPEAT PERICARDIOCENTESIS 800 CC OF SEROUS FLUID DRAINED ECHO TODAY STILL WITH PERSISTENT POSTERIOR EFFUSION DCed CATHETER AMBULATE PT CONT COLCHICINE Dietary Evaluation Review Comments: Nutrition Recommendation: [facility] as medically feasible 2) Monitor NPO status, lab values, weight trend, and I/O Expected Outcomes/Goals: Intake to meet >75% estimated needs Lab values to improve FU 2-3 days Plan discussed with: Patient Critical Care Time(min): 35 COLLETTE RODRIGUEZ MD Oct 15, 2025 13:43
--- NOTE | 2025-10-15 13:45 | DVHPN2 ---
Progress Note - Dictate Date Seen: Oct 15, 2025 Has the PT tested + for MRSA If YES, has PT been informed?: No Medical Necessity Reason Pt with a Central, PICC or Fol: No Subjective PT WITH HX OF PELVIC/ GI MALIGNANCY S/P RESECTION CT OF ABD PELVIS PENDING NOW WITH RECURRENT PERICARDIAL EFFUSION PT HAS HAD 3 [PERICARDIOCENTESIS WITH APPARENT PERICARDIAL WINDOW BUT NOW WITH PERICARDIAL EFFUSION WITH [facility] TOTAL OF 1500 CC HAS BEEN DRAINED REPEAT ECHO PENDING PT HAS NO INSIGHT TO HER DISEASE PROCESS MORBID OBESITY vital signs Vital Sign Date Time Temp Pulse Resp B/P (MAP) Pulse Ox O2 Delivery O2 Flow Rate FiO2 10/15/25 11:53 97.9 56 14 119/70 (86) 98 97.9 10/15/25 10:00 Room Air* 0 21 Total Intake and Output 10/14/25 10/14/25 10/15/25 15:00 23:00 07:00 Intake Total 100 ml 480 ml 440 ml Balance 100 ml 480 ml 440 ml medications Current Medications Medications Dose Ordered Sig/Yuli Route Start Time Stop Time Status Last Admin Dose Admin Atorvastatin Calcium 40 mg HS PO 10/03/25 22:00 10/14/25 21:43 40 MG Acetaminophen 650 mg Q6HP PRN PO 10/03/25 10:00 10/13/25 12:35 650 MG Ondansetron HCl 4 mg Q4HP PRN IV 10/03/25 10:00 Diagnostic Test (Pha) 1 strip ACHS 10/03/25 11:30 10/15/25 11:45 1 STRIP Insulin Human Regular ACHS SC 10/03/25 11:30 10/15/25 11:49 4 UNITS Dextrose 50 ml UD PRN IV 10/03/25 10:00 Brimonidine Tartrate 1 drop TID EACHEYE 10/03/25 14:00 10/15/25 06:02 1 DROP Gabapentin 800 mg TID PO 10/03/25 14:00 10/15/25 06:02 800 MG Colchicine 0.6 mg Q12HR PO 10/04/25 22:00 10/15/25 08:47 0.6 MG Metoprolol Succinate 50 mg DAILY PO 10/06/25 10:00 10/15/25 08:48 50 MG Levofloxacin/ Dextrose 100 ml @ 100 mls/hr DAILY IV 10/08/25 15:00 10/15/25 08:47 100 MLS/HR Patient Own Medication 320 DAILY SC 10/09/25 10:00 Hold Levalbuterol HCl 0.625 mg Q6HR NEB 10/09/25 15:45 UNV Acetylcysteine 100 mg Q6HR NEB 10/09/25 15:45 UNV laboratory and microbiology Laboratory Tests 10/14/25 05:15 Test 10/14/25 05:15 Range/Units Serum Glucose 110 H 74-106 mg/dL Problem List HX OF PELVIC/ GI MALIGNANCY S/P RESECTION CT OF ABD PELVIS PENDING NOW WITH RECURRENT PERICARDIAL EFFUSION PT HAS HAD 3 [PERICARDIOCENTESIS WITH APPARENT PERICARDIAL WINDOW BUT NOW WITH PERICARDIAL EFFUSION WITH [facility] TOTAL OF 1500 CC HAS BEEN DRAINED REPEAT ECHO PENDING PT HAS NO INSIGHT TO HER DISEASE PROCESS MORBID OBESITY Assessment/Plan PT WITH PERICARDIAL DRAIN REPEAT ECHO ABX CX OF FLUID NEGATIVE GRAM STAIN NEGATIVE CELL COUNT NO CONSISTENT WITH MALIGNANCY BUT MORE CONSISTENT WITH REACTIVE / INFLAMMATORY ETIOLOGY CYTOLOGY PENDING CHEMISTRY PENDING CONSIDER COLCHICINE AND RILONACEPT( FDA APPROVED) OR ANAKINRA ( NOT APPROVED YET) EPISODE OF TACHYCARDIA STARTED TOPROL XL DC PERICARDIAL DRAIN ECHO IN AM SMALL LOCULATED POSTERIOR EFFUSION ECHO 09/1025 STILL WITH SMALL POSTERIOR EFFUSION STILL COLCHICINE HAS NOT BEEN STARTED reposition catheter tomorrow HAD TO REINSERT PERICARDIOCENTESIS BALLOON DILATION FOR PERICARDIAL WINDOW START INTERLEUKIN 1 ANTAGONIST ARCALYST / PILONECEPT WAS NOT GIVEN IN THE HOSPITAL 160 MG SUBCQ BID X 2 DOSES GIVEN WEEKLY S/P REPEAT PERICARDIOCENTESIS 800 CC OF SEROUS FLUID DRAINED ECHO TODAY STILL WITH PERSISTENT POSTERIOR EFFUSION DCed CATHETER AMBULATE PT CONT COLCHICINE POSTERIRO EFFUSION PERSISTS BOT NO INCREASE MAY DC HOME F/U IN 1 WEEK Dietary Evaluation Review Comments: Nutrition Recommendation: [facility] as medically feasible 2) Monitor NPO status, lab values, weight trend, and I/O Expected Outcomes/Goals: Intake to meet >75% estimated needs Lab values to improve FU 2-3 days Plan discussed with: Patient COLLETTE RODRIGUEZ MD Oct 15, 2025 13:45
== END 2025-10-15 16:08 | disposition home or self-care (01) | DRG 133 ==
LOC: EDBD 08:01 → ER 08:01 → OVERFLOW 09:56 → DOU 16:12 → CATH ICU 18:47 → DOU 22:40 → ICU CENTRL 10-08 18:00 → DOU 10-11 10:23
PROVIDERS: ADMIT Internal Medicine; ATTEND Internal Medicine
PROC: 0W9D30Z Drainage of Pericardial Cavity with Drainage Device, Percutaneous Approach (ICD-10-PCS; principal; 2025-10-03)
PROC: 0W9D30Z Drainage of Pericardial Cavity with Drainage Device, Percutaneous Approach (ICD-10-PCS; 2025-10-08)
DX: J96.21 Acute and chronic respiratory failure with hypoxia (principal); I31.39 Other pericardial effusion (noninflammatory); I31.4 Cardiac tamponade; I50.32 Chronic diastolic (congestive) heart failure; I11.0 Hypertensive heart disease with heart failure; N39.0 Urinary tract infection, site not specified; E11.9 Type 2 diabetes mellitus without complications; E66.01 Morbid (severe) obesity due to excess calories; I31.9 Disease of pericardium, unspecified; E78.5 Hyperlipidemia, unspecified; I48.91 Unspecified atrial fibrillation; J98.11 Atelectasis; F10.90 Alcohol use, unspecified, uncomplicated; E87.5 Hyperkalemia; Y90.9 Presence of alcohol in blood, level not specified; K57.30 Diverticulosis of large intestine without perforation or abscess without bleeding; N26.1 Atrophy of kidney (terminal); Z85.00 Personal history of malignant neoplasm of unspecified digestive organ; Z83.3 Family history of diabetes mellitus; Z87.891 Personal history of nicotine dependence; Z90.710 Acquired absence of both cervix and uterus; Z68.37 Body mass index [BMI] 37.0-37.9, adult; Z79.899 Other long term (current) drug therapy
CPT/HCPCS: 33010; 33016; 36415; 71045; 74176; 80048; 80053; 80061; 80307; 81001; 82378; 82962; 83036; 83735; 83880; 84439; 84443; 84484; 85025; 85610; 85730; 86301; 86304; 86850; 86900; 86901; 87040; 87071; 87081; 87086; 87205; 88341; 89051; 93005; 93306; 94640; 96365; 96368; 97110; 97116; 97163; 97530; 99152; G0378; J1815; J1885; J1956; J2250

== ENCOUNTER 2025-10-24 11:30 | Emergency (ER) | payer MEDICAID ==
[~2025-10-24] VITALS: Ht 162.6 cm; Wt 118.1 kg
[~2025-10-24 11:30] MED LIST changes: +ALLO100T PO; +ATOR-507 PO; +COLC1CAP PO; +GABA800T97 PO; +METO-289 PO
--- NOTE | 2025-10-24 11:48 | ED.PDOC ---
HPI Comments 65-year-old female with past medical history of congestive heart failure, COPD, diabetes, hyperlipidemia, hypertension, cardiac window in [address] [facility], presents to the ED via EMS for a chief complaint of chest pain associated with SOB that started 2 days ago. Patient was recent admitted to this hospital for same symptoms and was wound to have significant pericardial effusion. Patient had been dx with pericardial effusion and she has had pericardiocentesis on several occasions followed by pericardial window. Patient denies any nausea, vomiting, diarrhea, fever, chills. Chief Complaint: Chest Pain Time Seen by MD: 11:40 Primary Care Provider: ALFRED Reviewed Notes: Nurses Notes, Cap Parts Cutter Notes, Medications, Allergies Allergies: Coded Allergies: NO KNOWN ALLERGIES (Unverified , 02/04/19) Home Meds Active Scripts Atorvastatin Calcium (Lipitor) 40 Mg Tab, 1 TAB PO QPM, #90 TAB 1 Refill Prov:LILY WELLS MD 10/15/25 Colchicine (Colchicine) 0.6 Mg Cap, 0.6 MG PO BID, #60 CAP 1 Refill Prov:LILY WELLS MD 10/15/25 Furosemide (Furosemide) 40 Mg Tab, 1 TAB PO DAILYPRN PRN, #30 TAB 0 Refills Prov:GABRIELA LUIS MD 02/23/19 Lisinopril (Lisinopril) 5 Mg Tab, 5 MG PO DAILY for 30 Days, #30 TAB Prov:GABRIELA LUIS MD 02/23/19 Reported Medications Metoprolol Succinate (Metoprolol Succinate Er) 50 Mg Tab, 1 TAB PO DAILY 10/03/25 Allopurinol (Allopurinol) 100 Mg Tab, 1 TAB PO DAILY 10/03/25 Gabapentin (Gabapentin) 800 Mg Tab, 1 TAB PO TID 10/03/25 Metformin Hydrochloride (Metformin Hcl) 500 Mg Tab, 500 MG PO IBID for 30 Days, MG 02/14/19 Hctz (Hydrochlorothiazide) 25 Mg Tab, 25 MG PO DAILY, TAB 02/14/19 Brimonidine Tartrate (Brimonidine Tartrate) 0.2 % Rubi, 1 DROP EACHEYE TID for glaucoma, #10 ML 3 Refills 02/13/19 Information Source: Patient, Emergency Med Personnel Mode of Arrival: EMS Severity: Moderate Timing: Days (2) Duration: Since onset Location: Substernal Radiation: No Radiation Quality: Sharp Onset: At Rest Cardiac Risk Factors: Hyperlipidemia, HTN, Diabetes History of: Similar pain in past Modifying Factors: Nothing Associated Signs and Symptoms: SOB Past Medical History PAST MEDICAL HISTORY: CHF, COPD, DM, High Lipids, HTN Surgical History: Appendectomy, Hysterectomy LEAF STAMPER History: Denies all LEAF STAMPER Hx Family History Family History: Family hx of Cancer, Family hx of heart all Social History Smoker: Non-Smoker Alcohol: Occasionally Drugs: Denies Drug Use Lives In: Home Constitutional: denies: chills, diaphoresis, fatigue, fever, malaise, sweats, weakness, others EENTM: denies: blurred vision, double vision, ear bleeding, ear discharge, ear drainage, ear pain, ear ringing, eye pain, eye redness, hearing loss, mouth pain, mouth swelling, nasal discharge, nose bleeding, nose congestion, nose pain, photophobia, tearing, throat pain, throat swelling, voice changes, others Respiratory: reports: SOB at rest, shortness of breath, SOB with excertion; denies: cough, hemoptysis, orthopnea, stridor, wheezing, others Cardiovascular: reports: chest pain; denies: dizzy spells, diaphoresis, Dyspnea on exertion, edema, irregular heart beat, left arm pain, lightheadedness, palpitations, PND, syncope, others Gastrointestinal: denies: abdomen distended, abdominal pain, blood streaked bowels, constipated, diarrhea, dysphagia, difficulty swallowing, hematemesis, melena, nausea, poor appetite, poor fluid intake, rectal bleeding, rectal pain, vomiting, others Genitourinary: denies: abnormal vagina bleeding, burning, dyspareunia, dysuria, flank pain, frequency, hematuria, incontinence, pain, , vagina discharge, urgency, others Neurological: denies: dizziness, fainting, headache, left sided numbness, left sided weakness, numbness, paresthesia, pre-existing deficit, right sided numbness, right sided weakness, seizure, speech problems, tingling, tremors, weakness, others Musculoskeletal: denies: back pain, gout, joint pain, joint swelling, muscle pain, muscle stiffness, neck pain, others Integumetry: denies: bruises, change in color, change in hair/nails, dryness, laceration, lesions, lumps, rash, wounds, others Allergic/Immunocompromised: denies: Difficulty Healing, Frequent Infections, Hives, Itching, others Hematologic/Lymphatic: denies: anemia, blood clots, easy bleeding, easy bruising, swollen glands, others Endocrine: denies: excessive hunger, excessive sweating, excessive thirst, excessive urination, flushing, intolerance to cold, intolerance to heat, une xplained weight gain, unexplained weight loss, others Psychiatric: denies: anxiety, bipolar disorder, depression, hopeless, panic disorder, schizophrenia, sleepless, suicidal, others All Other Systems: Reviewed and Negative Physical Exam General Appearance: Moderate Distress HEENT: Normal ENT Inspection, Pharynx Normal, TMs Normal Neck: Full Range of Motion, Non-Tender, Normal, Normal Inspection Respiratory: Accessory Muscle Use, Respiratory Distress Cardiovascular: No Edema, No JVD, No Murmur, No Gallop, Normal Peripheral Pulses, Regular Rate/Rhythm Breast Exam: Deferred Gastrointestinal: No Organomegaly, Non Tender, No Pulsatile Mass, Normal Bowel Sounds, Soft Genitalia: Deferred Pelvic: Deferred Rectal: Deferred Extremities: No calf tenderness, No pedal edema Musculoskeletal : Apperance: Normal Neurologic: Alert, No Motor Deficits, No Sensory Deficits Cerebellar Function: NOT DONE Reflexes: NOT DONE Skin: Normal Color Peripheral Pulses: 3+ Radial (R), 3+ Radial (L) Lymphatic: No Adenopathy Was a procedure done? Was a procedure done?: No CP Differential Dx Differential Diagnosis: A-fib, A-Flutter, Angina, Anxiety / Panic Attack, Atrial Dysrhythmia, Electrolyte Disorder, Other Differential Diagnosis: Angina, Aortic dissection, Chest Wall Pain, Cholelithiasis, Costochondritis X-Ray, Labs, Meds, VS Vital Signs Date Time Temp Pulse Resp B/P (MAP) Pulse Ox O2 Delivery O2 Flow Rate FiO2 10/24/25 12:53 102 10/24/25 12:28 109 14 95 Nasal Cannula* 2 10/24/25 12:05 105 21 97 Room Air 10/24/25 12:05 98.8 105 21 97/60 (72) 97 98.8 10/24/25 12:04 97/60 10/24/25 11:40 100.1 116 20 100/78 97 100.1 10/24/25 11:33 112 Lab Test 10/24/25 11:58 10/24/25 11:50 Range/Units Troponin I High Sensitivity 40 *H </=34 ng/L White Blood Count 11.9 H 4.4-10.8 10^3/uL Red Blood Count 4.33 4.0-5.20 10^6/uL Hemoglobin 12.2 12.2-16.2 g/dL Hematocrit 38.4 36.0-46.0 % Mean Corpuscular Volume 88.6 80.0-100.0 fL Mean Corpuscular Hemoglobin 28.1 28.0-32.0 pg Mean Corpuscular Hemoglobin Concent 31.8 L 32.0-36.0 g/dL Red Cell Distribution Width 13.8 11.8-14.3 % Platelet Count 323 140-450 10^3/uL Mean Platelet Volume 9.7 6.9-10.8 fL Neutrophils (%) (Auto) 79.4 37.0-80.0 % Lymphocytes (%) (Auto) 10.4 10.0-50.0 % Monocytes (%) (Auto) 9.3 0.0-12.0 % Eosinophils (%) (Auto) 0.4 0.0-7.0 % Basophils (%) (Auto) 0.5 0.0-2.0 % Neutrophils # (Auto) 9.5 H 1.6-8.6 10 ^3/uL Lymphocytes # (Auto) 1.2 0.4-5.4 10 ^3/uL Monocytes # (Auto) 1.1 0-1.3 10 ^3/uL Eosinophils # (Auto) 0 0-0.8 10 ^3/uL Basophils # (Auto) 0.1 0-0.2 10 ^3/uL Nucleated Red Blood Cells 0.0 % Sodium Level 139 136-145 mmol/L Potassium Level 3.9 3.5-5.1 mmol/L Chloride Level 101 98-107 mmol/L Carbon Dioxide Level 29 20-31 mmol/L Anion Gap 9 5-15 Blood Urea Nitrogen 32 H 9-23 mg/dL Creatinine 1.17 H 0.550-1.02 mg/dL Glomerular Filtration Rate Calc 52 >90 mL/min BUN/Creatinine Ratio 27.4 H 10.0-20.0 Serum Glucose 152 H 74-106 mg/dL Calcium Level 10.2 8.7-10.4 mg/dL Total Bilirubin 0.6 0.2-1.0 mg/dL Aspartate Amino Transferase (AST) 15 13-40 U/L Alanine Aminotransferase (ALT) 18 7-40 U/L Alkaline Phosphatase 87 46-116 U/L B-Type Natriuretic Peptide 234.12 0-100 pg/mL Total Protein 7.5 5.7-8.2 g/dL Albumin 4.3 3.2-4.8 g/dL Current Medications Medications (Trade) Dose Ordered Sig/Yuli Route Start Time Stop Time Status Last Admin Furosemide (Lasix Injection) 40 mg ONCE ONCE IV 10/24/25 11:45 10/24/25 11:46 DC 10/24/25 12:04 Aspirin 325 mg ONCE ONCE PO 10/24/25 11:45 10/24/25 11:46 DC 10/24/25 12:04 Patient alert. Came in because of shortness a breath. Vitals stable. Answering questions. Possible CHF. Was given Lasix. She was having chest discomfort. Was given aspirin. Blood sugar elevated. Kidney function elevated. EKG reviewed does not show any acute changes. WBC slightly elevated. Cardiac marker elevated. Possible pneumonitis. Explained to the patient. Continue monitoring. Time of 1ST Reevaluation: 11:45 Reevaluation 1ST: Unchanged Patient Education/Counseling: Diagnosis, Treatment, Prognosis Family Education/Counseling: No Family Present SEPSIS Sepsis Screen Physician Orders Chest Portable (10/24/25 11:44) Urinalysis (10/24/25 11:44) Electrocardigram (10/24/25 12:04) Electrocardigram (10/24/25 13:04) Electrocardigram (10/24/25 15:04) Vital Signs Date Time Temp Pulse Resp B/P (MAP) Pulse Ox O2 Delivery O2 Flow Rate FiO2 10/24/25 12:53 102 10/24/25 12:28 109 14 95 Nasal Cannula* 2 28 10/24/25 12:05 105 21 97 Room Air 10/24/25 12:05 98.8 105 21 97/60 (72) 97 98.8 10/24/25 12:04 97/60 10/24/25 11:40 100.1 116 20 100/78 97 100.1 10/24/25 11:33 112 Laboratory Tests Test 10/24/25 11:50 White Blood Count 11.9 10^3/uL (4.4-10.8) H Medications Medications Dose Ordered Sig/Yuli Route Start Time Stop Time Status Last Admin Dose Admin Aspirin 325 mg ONCE ONCE PO 10/24/25 11:45 10/24/25 11:46 DC 10/24/25 12:04 Furosemide 40 mg ONCE ONCE IV 10/24/25 11:45 10/24/25 11:46 DC 10/24/25 12:04 Departure 1 Departure Time of Disposition: 14:27 Impression: Primary Impression: CHF (congestive heart failure) Qualified Codes: I50.43 - Acute on chronic combined systolic (congestive) and diastolic (congestive) heart failure Additional Impressions: CKD (chronic kidney disease), stage III Qualified Codes: N18.30 - Chronic kidney disease, stage 3 unspecified Demand ischemia Hypertension Qualified Codes: I10 - Essential (primary) hypertension Uncontrolled diabetes mellitus Qualified Codes: E13.65 - Other specified diabetes mellitus with hyperglycemia Disposition: ADMITTED INPATIENT Admit to: Med Surg Condition: Guarded Critical Care Note Critical Care Time?: Yes (90 min-critical care time only) Stability Stability form required: No Heart Score Heart Score: Heart Score Response (Comments) Value History Highly Suspicious [address]-Deviation 2 Age 45-64 1 Risk Factors >3 or Hx ASHD 2 Troponin >3 x's Normal limit 2 Total 9 I personally scribed for ANNIA CARBAJAL MD ([email or web address]) on 10/24/25 at 11:48. Electronically submitted by Adriana Albert ([facility]). ANNIA CARBAJAL MD Oct 24, 2025 11:48
[2025-10-24] MEDS: FUROSEMIDE 40 MG/4 ML VIAL IV ONE (12:04)
[2025-10-24 12:05] VITALS: TEMP 98.8
[2025-10-24 12:18] LABS: Hematocrit 38.4 % (36.0-46.0); Hemoglobin 12.2 g/dL (12.2-16.2); Mean Corpuscular Hemoglobin 28.1 pg (28.0-32.0); Mean Corpuscular Volume 88.6 fL (80.0-100.0); Nucleated Red Blood Cells % 0.0 %
[2025-10-24 12:28] VITALS: PULSE 109; RESP 14; O2SAT 95
[2025-10-24 12:33] LABS: Alanine Aminotransferase 18 U/L (7-40); Alkaline Phosphatase 87 U/L (46-116); Anion Gap 9 (5-15); BUN/Creatinine Ratio 27.4 (10.0-20.0); Calcium 10.2 mg/dL (8.7-10.4); Carbon Dioxide 29 mmol/L (20-31); Chloride 101 mmol/L (98-107); Potassium 3.9 mmol/L (3.5-5.1); Sodium 139 mmol/L (136-145); Total Protein 7.5 g/dL (5.7-8.2)
[2025-10-24 12:34] LABS: Albumin 4.3 g/dL (3.2-4.8); Bilirubin, Total 0.6 mg/dL (0.2-1.0); Blood Urea Nitrogen 32 mg/dL (9-23); Glucose 152 mg/dL (74-106)
--- NOTE | 2025-10-24 12:54 | DVH ---
CHEST RADIOGRAPH Indication: sob Technique: Single frontal view of the chest was obtained Comparison: XY CHEST PORTABLE on DOS: 10/13/25, XY CHEST PORTABLE on DOS: 10/10/25, XY CHEST XRAY 1 VIEW on DOS: 10/09/25 FINDINGS: Lines and Tubes: None Lungs: No focal consolidation. Pleura: No effusion. No pneumothorax. Cardiomediastinal contours: Cardiomegaly without findings of congestive failure. Findings may represent cardiomyopathy or pericardial effusion. Bones: No acute osseous abnormality. IMPRESSION: 1. Cardiomegaly without findings of congestive failure. Findings may represent cardiomyopathy or pericardial effusion.
[2025-10-24] MEDS: ONDANSETRON HCL 4 MG/2 ML VIAL IV ONE (14:56)
[2025-10-24] MEDS: MORPHINE SULFATE 4 MG/ML SYR/VIAL IV ONE (14:56)
[2025-10-24 15:01] LABS: Urine Protein, UAD Negative (Negative)
[2025-10-24 19:29] VITALS: BP 96/74; PULSE 115; RESP 22; O2SAT 94
--- NOTE | 2025-10-25 10:32 | DVHSR ---
APPROVED REPORT EXAM: LIMITED Two-dimensional and M-mode echocardiogram with Doppler. Blood Pressure: 124/58 mmHg INDICATION EF Limited repeat for pericardial effusion RISK FACTORS Obesity: Height: 5'4", Weight: 260 Mitral Valve Mitral Mitral Stenosis E/A ratio 0.0 2D MVA cm2 Other Information Quality : Technically Limited Rhythm : Technically limited study due to limited repeat to eval effusion. Conclusion lvef 55-60% moderate LVH limited study large circumferential pericardial effusion, this is worse that the very last echo on last admit from pt RV not collapsing IVC does collapse and normal this is post 2 separate pericardiocenteiss ER instructed to transfer pt karely for ct surgery even prior to echo being performed
--- NOTE | 2025-10-27 07:16 | ECG ---
[facility] Test Date: 2025-10-24 Test Time: 11:33:32 Pat Name: LEXII PEREZ Department: [facility] ED Patient ID: [id number] Room: Gender: F Staff Analyst: jeff : 1960 Requested By: ANNIA CARBAJAL Order Number: [id number] Reading MD: Bhargav Cid Measurements Intervals [place] Rate: 112 P: 61 [place]: 141 QRS: -5 QRSD: 81 T: 2 QT: 322 QTc: 440 Interpretive Statements Sinus tachycardia Low voltage, precordial leads RSR' in V1 or V2, probably normal variant Electronically Signed On 10-28-2025 14:58:11 PST by Bhargav Cid Please click the below link to view image of tracing.
--- NOTE | 2025-10-28 07:42 | ECG ---
[facility] Test Date: 2025-10-24 Test Time: 12:53:48 Pat Name: LEXII PEREZ Department: Room: Gender: F Palliative Nurse: TAVARES : 1960 Requested By: ANNIA CARBAJAL Order Number: [id number] Reading MD: Bhargav Cid Measurements Intervals [place] Rate: 102 P: 66 [place]: 145 QRS: 3 QRSD: 83 T: 16 QT: 337 QTc: 439 Interpretive Statements Sinus tachycardia Low voltage, precordial leads Probable anteroseptal infarct, old Borderline ST elevation, lateral leads Electronically Signed On 10-28-2025 14:58:22 PST by Bhargav Cid Please click the below link to view image of tracing.
== END 2025-10-24 19:24 | disposition short-term general hospital (02) ==
LOC: EDBD 11:30 → EDUNIT# 11:30 → ER 11:30
DX: I13.0 Hypertensive heart and chronic kidney disease with heart failure and stage 1 through stage 4 chronic kidney disease, or unspecified chronic kidney disease (principal); E11.22 Type 2 diabetes mellitus with diabetic chronic kidney disease; N18.30 Chronic kidney disease, stage 3 unspecified; I50.9 Heart failure, unspecified; E11.65 Type 2 diabetes mellitus with hyperglycemia; E66.9 Obesity, unspecified; E78.5 Hyperlipidemia, unspecified; J44.9 Chronic obstructive pulmonary disease, unspecified; Z79.899 Other long term (current) drug therapy; Z90.49 Acquired absence of other specified parts of digestive tract; Z90.710 Acquired absence of both cervix and uterus; V89.2XXA Person injured in unspecified motor-vehicle accident, traffic, initial encounter; Y93.I9 Activity, other involving external motion; Y92.488 Other paved roadways as the place of occurrence of the external cause; Y99.8 Other external cause status
CPT/HCPCS: 36415; 71045; 80053; 81001; 83880; 84484; 85025; 93005; 93306; 96374; 96375; 99291; 99292; J1938; J2270; J2405